=== PATIENT | male | born 1930 | race Caucasian/White ===

== ENCOUNTER 2016-12-25 12:04 | Inpatient (IN) | payer OTHER ==
[~2016-12-25] VITALS: Ht 180.3 cm; Wt 58.1 kg
[~2016-12-25 12:04] MED LIST: ALBUAER2 INH; ALTERIL PO; AMIO200T7 PO; ASCO10003 PO; ASPEC81 PO; CHOL1000 PO; FINA5TAB PO; FLM4 PO; GUAI1SOL5 PO; IPRASOL4 INH; MAGN65TA PO; METO25TA3 PO; MISCCAP80 PO; MONT1TAB3 PO; NTRGSL/4 UT; OXGN; PANT40TA PO; POLY335019 PO; SENN-91 PO; SIMV40TA2 PO; SYMIN160 INH; TRAZ50TA35 PO; ZNTT/150 PO
[2016-12-25] MEDS ORDERED: PRED-301 PO (12:30)
[2016-12-25] MEDS ORDERED: ASCO500T16 PO (12:30)
[2016-12-25] MEDS ORDERED: HYDR-5688 PO (12:30)
[2016-12-25] MEDS ORDERED: CEPH500C2 PO (12:30)
[2016-12-25] MEDS ORDERED: MULT-506 PO (12:30)
[2016-12-25] MEDS ORDERED: TRAZ50TA35 PO (12:30)
--- NOTE | 2016-12-25 13:45 | DIAGNOSTIC IMAGING REPORT ---
CHEST ONE VIEW PORTABLE CLINICAL HISTORY: Shortness of breath. Respiratory distress. COMPARISON STUDY: Chest radiograph January 19, 2016. FINDINGS: There are median sternotomy wires. Elevation of the left hemidiaphragm has slightly increased. A 5.1 x 3 cm right upper lobe mass has increased in size since exam of January 19, 2016. There has been interval development of left upper lobe airspace opacity. No pneumothorax or pleural effusion is present. There is no evidence for pulmonary edema. There may be mild left basilar opacity. IMPRESSION: 1. Interval development of left upper lobe airspace opacity. The appearance favors pneumonia. Radiographic follow up to ensure resolution is recommended. 2. Slight increase in size of the right upper lobe mass which is suspicious for neoplasm. Electronically signed by: William Israel M.D. 12/25/2016 1:43 PM Dictated Date/Time: 12/25/2016 1:36 PM
--- NOTE | 2016-12-25 13:55 | EMERGENCY ROOM VISIT NOTE ---
History Report prepared by Sascha: Abdirahman Long Under the Supervision of: Dr. Colin Moore D.O. First contact with patient: 13:41 Chief Complaint: RESPIRATORY DISTRESS Stated Complaint: RESP DISTRESS Nursing Triage Summary: Patient arrives via ALS from home with complaints of resp. distress. PT has a nodule in his right lung, and home health nurse listened to his lungs this morning and heard rhonchi in his left bases. Patient complaining of SOB, uses 3L home O2 at bedtime. Sats when ems arrived were 90-91% on room air. Swollen left arm started yesterday and bilateral feet swelling. History of Present Illness The patient is an 86 year old male who presents to the Emergency Room via ALS with complaints of worsening extremity swelling to his left arm and bilateral feet that started prior to arrival. Per the patient's family, the patient has been on antibiotics on and off for the past month due to fluid in his lungs. The patient started off coughing up blood, and was put on an antibiotic for that. The patient is also noted to have a nodule in his right lung, which doctors have decided to not treat the patient for yet. Recently, the patient has started to have swelling in his left arm, which has moved to the bilateral feet as well. The patient's home health nurse visited this morning, and was concerned for CHF, and the patient was then sent here for evaluation. Per the patient's family, the patient has also had worsening shortness of breath, as well as some chest pain. The patient has still been coughing up some blood. The patient most recently had a fall 4 days ago, and has some left shoulder pain. Prior to arrival, the patient had a blood pressure of 80/50, and his O2 saturation was in the 80s. The patient is on oxygen in the evenings and during the day as needed. Any fevers, nausea, or vomiting were denied on behalf of the patient. He is not noted to be on any blood thinners. Source of History: patient, family Onset: Prior to arrival Position: arm (left), foot (bilateral) Quality: other (swelling) Timing: worsening Associated Symptoms: + cough (up blood), + chest pain, + SOB, No fevers, No nausea, No vomiting Note: No other associated symptoms noted. Review of Systems See HPI for pertinent positives & negatives. A total of 10 systems reviewed and were otherwise negative. Past Medical & Surgical Medical Problems: (1) Anemia (2) BPH (benign prostatic hyperplasia) (3) CAD (coronary artery disease) (4) CHF (congestive heart failure) (5) Chronic obstructive pulmonary disease (6) Chronic respiratory failure with hypoxia (7) CKD (chronic kidney disease), stage III (8) DM type 2 (diabetes mellitus, type 2) (9) Hematuria (10) History of left heart catheterization (LHC) (11) HTN (hypertension) (12) Hyperlipidemia (13) Lung tumor (14) Myocardial infarction (15) PNA (pneumonia) Surgical Problems: (1) H/O carotid endarterectomy (2) H/O knee surgery (3) History of bowel resection (4) History of carpal tunnel surgery (5) History of heart artery stent (6) S/P CABG x 4 Family History Noncontributory due to advanced age Social History Smoking Status: Former Smoker Alcohol Use: none Drug Use: none Marital Status: Housing Status: lives with family Occupation Status: retired Current/Historical Medications Scheduled Amiodarone Hcl (Pacerone), 100 MG PO DAILY Ascorbic Acid (Ascorbic Acid), 500 MG PO DAILY Cephalexin Monohydrate (Keflex), 500 MG PO TID Cholecalciferol (Vitamin D3), 1,000 UNITS PO QAM Home O2 Therapy (Oxygen), 3.5 LITER NA HS Ipratropium-Albuterol (Duoneb), 1 TREATMENT INH QID Metoprolol Succ (Toprol Xl) (Toprol-Xl), 12.5 MG PO DAILYBL Multiple Vitamins W/ Iron (Daily Vitamin Formula+Ir), 1 TAB PO DAILY Nitroglycerin (Nitrostat), 0.4 MG UT PRN Pantoprazole (Protonix), 40 MG PO NOON Ranitidine (Zantac), 150 MG PO BID Trazodone Hcl (Trazodone), 50 MG PO HS Trazodone Hcl (Trazodone), 25 MG PO QDD [Alteril], 2 TABS PO HS Scheduled PRN Guaifenesin-Codeine (Codeine/Guaifenesin 100-10 mg/5Ml), 5-10 ML PO Q4 PRN for Cough Oxycodone/Acetaminophen 5MG/325MG (Percocet 5MG/325MG), 0.5 TABLET PO Q4H PRN for Pain Allergies Coded Allergies: Adhesives (Verified Allergy, Intermediate, RASH, 12/25/16) Physical Exam Vital Signs Date Time Temp Pulse Resp B/P (MAP) Pulse Ox O2 Delivery O2 Flow Rate FiO2 12/25/16 17:33 Nasal Cannula 3.0 12/25/16 17:06 73 20 138/74 100 Nasal Cannula 3.0 12/25/16 16:15 74 12/25/16 15:25 73 15 119/62 97 Nasal Cannula 3.0 12/25/16 14:07 76 21 104/58 100 Nasal Cannula 3.0 12/25/16 12:56 98 Nasal Cannula 3.0 12/25/16 12:56 98 Nasal Cannula 3.0 12/25/16 12:27 86 Room Air 12/25/16 12:27 Nasal Cannula 3.0 95 12/25/16 12:27 36.6 85 18 124/58 94 Nasal Cannula 3.0 12/25/16 12:18 82 Physical Exam GENERAL: Patient is awake, alert, and non anxious appearing. EYES: The conjunctivae are clear. The pupils are round and reactive. EARS, NOSE, MOUTH AND THROAT: The nose is without any evidence of any deformity. Mucous membranes are moist tongue is midline NECK: The neck is nontender and supple. RESPIRATORY: Lung sounds are diminished at both bases. Rales noted throughout. Mild tachypnea noted. CARDIOVASCULAR: Regular rate and rhythm noted there no murmurs rubs or gallops normal S1 normal S2 GASTROINTESTINAL: The abdomen is soft. Bowel sounds are present in all quadrants. Abdomen is nontender MUSCULOSKELETAL/EXTREMITIES: There is no evidence of gross deformity full range of motion is noted in the hips and shoulders SKIN: Edema to left forearm, no signs of cellulitis. Trace pedal edema to both legs. NEUROLOGIC: Patient is awake alert and oriented x3. Medical Decision & Procedures ER Provider Diagnostic Interpretation: Radiology results as stated below per my review and radiologist interpretation: CHEST ONE VIEW PORTABLE CLINICAL HISTORY: Shortness of breath. Respiratory distress. COMPARISON STUDY: Chest radiograph January 19, 2016. FINDINGS: There are median sternotomy wires. Elevation of the left hemidiaphragm has slightly increased. A 5.1 x 3 cm right upper lobe mass has increased in size since exam of January 19, 2016. There has been interval development of left upper lobe airspace opacity. No pneumothorax or pleural effusion is present. There is no evidence for pulmonary edema. There may be mild left basilar opacity. IMPRESSION: 1. Interval development of left upper lobe airspace opacity. The appearance favors pneumonia. Radiographic follow up to ensure resolution is recommended. 2. Slight increase in size of the right upper lobe mass which is suspicious for neoplasm. Electronically signed by: William Israel M.D. 12/25/2016 1:43 PM Dictated Date/Time: 12/25/2016 1:36 PM ULTRASOUND LEFT UPPER EXTREMITY VENOUS CLINICAL HISTORY: Left arm swelling. COMPARISON STUDY: No priors. TECHNIQUE: Real-time, grayscale, and color Doppler sonography of the deep veins of the left upper extremity is performed. Compression and augmentation were utilized. FINDINGS: There is no sonographic evidence of deep venous thrombosis identified in the left upper extremity. The left internal jugular, axillary, and brachial veins are patent and normally compressible. Normal venous waveforms and augmentation are seen within the left subclavian vein. The cephalic and basilic veins are clear. The visualized radial and ulnar veins are patent. Subcutaneous soft tissue edema is noted in the left arm. There is a pocket of subcutaneous fluid seen posterior to the elbow which measures up to 3.2 cm. IMPRESSION: 1. There is no sonographic evidence of deep venous thrombosis identified in the left upper extremity. 2. Soft tissue swelling is noted in the left arm and there is a pocket of simultaneous fluid posterior to the elbow, possibly representing bursitis. Clinical correlation will be required. Electronically signed by: Kerwin Rivera M.D. 12/25/2016 3:11 PM Dictated Date/Time: 12/25/2016 3:09 PM LEFT SHOULDER MIN 2 VIEWS ROUTINE CLINICAL HISTORY: 86 years-old Male presenting with swelling and respiratory distress. TECHNIQUE: Internal rotation and transscapular Y views of the left shoulder were obtained. A frontal radiograph of the left forearm was included erroneously in the compilation. COMPARISON: Chest x-ray from 12/25/2016. FINDINGS: The humeral head articulates normally with the glenoid. No acute fracture or subluxation. Acromioclavicular joint is intact. Regional soft tissues grossly normal. Median sternotomy wires and mediastinal surgical clips noted in addition to aortic atherosclerosis. Less pronounced left upper lobe opacity likely due to technique. IMPRESSION: No acute fracture or subluxation of the left shoulder. Electronically signed by: Chidi Moreland M.D. 12/25/2016 2:31 PM Dictated Date/Time: 12/25/2016 2:29 PM LEFT FOREARM 2 VIEWS ROUTINE HISTORY: 86 years-old Male acute left arm swelling with respiratory distress. COMPARISON: Left shoulder radiographs of same day TECHNIQUE: Single lateral view of the left forearm FINDINGS: There is moderate soft tissue swelling of the forearm and distal left upper arm. Negative for radiopaque foreign body. Radiocarpal, triscaphe and first carpometacarpal joint changes are noted. There is marginal spurring of the radial head. There is no acute fracture or dislocation identified. IMPRESSION: Moderate soft tissue swelling of the left forearm without acute bony normality identified. The above report was generated using voice recognition software. It may contain grammatical, syntax or spelling errors. Electronically signed by: Luther Sanots M.D. 12/25/2016 2:39 PM Dictated Date/Time: 12/25/2016 2:38 PM Laboratory Results 12/25/16 13:41 Red Blood Count 3.04, Mean Corpuscular Volume 94.4, Mean Corpuscular Hemoglobin 30.3, Mean Corpuscular Hemoglobin Concent 32.1, Mean Platelet Volume 8.7, Neutrophils (%) (Auto) 84.7, Lymphocytes (%) (Auto) 6.8, Monocytes (%) (Auto) 7.7, Eosinophils (%) (Auto) 0.4, Basophils (%) (Auto) 0.1, Neutrophils # (Auto) 10.74, Lymphocytes # (Auto) 0.86, Monocytes # (Auto) 0.97, Eosinophils # (Auto) 0.05, Basophils # (Auto) 0.01 12/25/16 13:41 Test 12/25/16 13:41 12/25/16 14:16 12/25/16 16:05 White Blood Count 12.67 K/uL (4.8-10.8) Red Blood Count 3.04 M/uL (4.7-6.1) Hemoglobin 9.2 g/dL (14.0-18.0) Hematocrit 28.7 % (42-52) Mean Corpuscular Volume 94.4 fL (80-100) Mean Corpuscular Hemoglobin 30.3 pg (25-34) Mean Corpuscular Hemoglobin Concent 32.1 g/dl (32-36) Platelet Count 205 K/uL (130-400) Mean Platelet Volume 8.7 fL (7.4-10.4) Neutrophils (%) (Auto) 84.7 % Lymphocytes (%) (Auto) 6.8 % Monocytes (%) (Auto) 7.7 % Eosinophils (%) (Auto) 0.4 % Basophils (%) (Auto) 0.1 % Neutrophils # (Auto) 10.74 K/uL (1.4-6.5) Lymphocytes # (Auto) 0.86 K/uL (1.2-3.4) Monocytes # (Auto) 0.97 K/uL (0.11-0.59) Eosinophils # (Auto) 0.05 K/uL (0-0.5) Basophils # (Auto) 0.01 K/uL (0-0.2) RDW Standard Deviation 50.2 fL (36.4-46.3) RDW Coefficient of Variation 14.5 % (11.5-14.5) Immature Granulocyte % (Auto) 0.3 % Immature Granulocyte # (Auto) 0.04 K/uL (0.00-0.02) Prothrombin Time 10.4 SECONDS (9.0-12.0) Prothromb Time International Ratio 1.0 (0.9-1.1) Activated Partial Thromboplast Time 26.7 SECONDS (21.0-31.0) Partial Thromboplastin Ratio 1.0 Anion Gap 7.0 mmol/L (3-11) Est Creatinine Clear Calc Drug Dose 25.5 ml/min Estimated GFR () 43.9 Estimated GFR (Non- 37.9 BUN/Creatinine Ratio 23.9 (10-20) Calcium Level 8.8 mg/dl (8.5-10.1) Total Bilirubin 0.2 mg/dl (0.2-1) Aspartate Amino Transf (AST/SGOT) 17 U/L (15-37) Alanine Aminotransferase (ALT/SGPT) 15 U/L (12-78) Alkaline Phosphatase 79 U/L (45-117) Pro-B-Type Natriuretic Peptide 92471 pg/ml (0-1800) Total Protein 6.2 gm/dl (6.4-8.2) Albumin 2.1 gm/dl (3.4-5.0) Globulin 4.1 gm/dl (2.5-4.0) Albumin/Globulin Ratio 0.5 (0.9-2) Bedside Troponin I 0.100 ng/ml (0-0.045) Urine Color DK YELLOW Urine Appearance CLEAR (CLEAR) Urine pH 5.0 (4.5-7.5) Urine Specific [place] 1.021 (1.000-1.030) Urine Protein 1+ (NEG) Urine Glucose (UA) NEG (NEG) Urine Ketones NEG (NEG) Urine Occult Blood 2+ (NEG) Urine Nitrite NEG (NEG) Urine Bilirubin NEG (NEG) Urine Urobilinogen NEG (NEG) Urine Leukocyte Esterase NEG (NEG) Urine WBC (Auto) 5-10 /hpf (0-5) Urine RBC (Auto) 10-30 /hpf (0-4) Urine Hyaline Casts (Auto) 1-5 /lpf (0-5) Urine Epithelial Cells (Auto) >30 /lpf (0-5) Urine Bacteria (Auto) NEG (NEG) Urine Renal Epithelial Cells 5-10 /lpf (0-5) Urine Crystals CALCIUM OXALATE (NONE Laboratory results per my review. Medications Administered Medications (Trade) Dose Ordered Sig/Bruon Route Start Time Stop Time Status Last Admin Dose Admin Levofloxacin (Levaquin / D5W) 750 mg NOW STAT IV 12/25/16 14:54 12/25/16 14:55 DC 12/25/16 15:25 750 MG Sodium Chloride 500 ml @ 999 mls/hr Q31M STAT IV 12/25/16 15:49 12/25/16 16:19 DC 12/25/16 16:30 999 MLS/HR ECG Indication: SOB/dyspnea Rate (beats per minute): 79 Rhythm: normal sinus Findings: PVC, other (no acute ST segment abnormalities) Change: no significant change (from January 17 of last year) ED Course 1342: The patient was evaluated in room B7. A complete history and physical examination were performed. 1454: Ordered Levaquin / D5W 750 mg IV. 1548: I reevaluated the patient and he is resting. The patient and family verbally expressed understanding and agreement with the treatment plan. The patient will be evaluated for further treatment. 1549: Ordered NSS 500 ml @ 999 mls/hr IV. 1554: I discussed the patient with Anjelica Mijares. She will evaluate the patient for further treatment. Medical Decision Differential diagnosis: Etiologies such as infections, reactive airway disease, pneumonia, pneumothorax , COPD, CHF, cardiac ischemia, pulmonary embolism, musculoskeletal, gastrointestinal, as well as others were entertained. Nursing notes reviewed. Additional history was obtained from the patient's family members. The patient is an 86-year-old male who presented to the emergency apartment for an evaluation of shortness of breath. The patient is a recently diagnosed lung tumor that he is choosing not to treat. The patient was also found have signs of pneumonia on chest x-ray which is new. He has had hemoptysis. I discussed the patient's laboratory and radiographic studies with him and his family hours. He was treated with IV antibiotics and a small IV fluid bolus. I discussed his case with the on-call [facility] hospitalist group. They have agreed to evaluate the patient in emergency apartment for further management and disposition. I discussed the patient's laboratory and radiographic studies with his family. Head Trauma GCS Score: 15 Medication Reconcilliation Current Medication List: was personally reviewed by me Blood Pressure Screening Patient's blood pressure: Normal blood pressure Consults Time Called: 1550 Consulting Physician: Anjelica Mijares Returned Call: 1554 I discussed the patient with Anjelica Mijares. She will evaluate the patient for further treatment. Impression Primary Impression: PNA (pneumonia) Additional Impressions: CHF (congestive heart failure) Hemoptysis Scribe Attestation The scribe's documentation has been prepared under my direction and personally reviewed by me in its entirety. I confirm that the note above accurately reflects all work, treatment, procedures, and medical decision making performed by me. Departure Information Dispostion Being Evaluated By Hospitalist Referrals Ling Tyler M.D. (PCP) Patient Instructions Asthma - [facility], COPD - [facility], Croup - [facility], My [facility] Problem Qualifiers Primary Impression: PNA (pneumonia) Pneumonia type: due to unspecified organism Laterality: unspecified laterality Lung location: unspecified part of lung Qualified Codes: J18.9 - Pneumonia, unspecified organism Additional Impressions: CHF (congestive heart failure) Congestive heart failure type: unspecified congestive heart failure type Congestive heart failure chronicity: unspecified congestive heart failure chronicity Qualified Codes: I50.9 - Heart failure, unspecified
[2016-12-25 14:24] LABS: BASO % 0.1 %; BASO ABS # 0.01 K/uL (0-0.2); COMPLETE YES; EOS % 0.4 %; HEMATOCRIT 28.7 % (42-52); IG% 0.3 %; LYMPH % 6.8 %; LYMPH ABS # 0.86 K/uL (1.2-3.4); MEAN CELL VOLUME 94.4 fL (80-100); MEAN CORPUSCULAR HEMOGLOBIN 30.3 pg (25-34); MEAN CORPUSCULAR HGB CONC 32.1 g/dl (32-36); MEAN PLATELET VOLUME 8.7 fL (7.4-10.4); MONO % 7.7 %; NEUT % 84.7 %; PLATELET COUNT 205 K/uL (130-400); PROTHROMBIN TIME (PATIENT) 10.4 SECONDS (9.0-12.0); RED BLOOD COUNT 3.04 M/uL (4.7-6.1); WHITE BLOOD COUNT 12.67 K/uL (4.8-10.8)
--- NOTE | 2016-12-25 14:33 | DIAGNOSTIC IMAGING REPORT ---
LEFT SHOULDER MIN 2 VIEWS ROUTINE CLINICAL HISTORY: 86 years-old Male presenting with swelling and respiratory distress. TECHNIQUE: Internal rotation and transscapular Y views of the left shoulder were obtained. A frontal radiograph of the left forearm was included erroneously in the compilation. COMPARISON: Chest x-ray from 12/25/2016. FINDINGS: The humeral head articulates normally with the glenoid. No acute fracture or subluxation. Acromioclavicular joint is intact. Regional soft tissues grossly normal. Median sternotomy wires and mediastinal surgical clips noted in addition to aortic atherosclerosis. Less pronounced left upper lobe opacity likely due to technique. IMPRESSION: No acute fracture or subluxation of the left shoulder. Electronically signed by: Chidi Moreland M.D. 12/25/2016 2:31 PM Dictated Date/Time: 12/25/2016 2:29 PM
[2016-12-25 14:37] LABS: BUN/CREATININE RATIO 23.9 (10-20); CALCIUM 8.8 mg/dl (8.5-10.1); CREATININE 1.6 mg/dl (0.60-1.40); POTASSIUM 4.5 mmol/L (3.5-5.1)
[2016-12-25 14:41] LABS: ALB/GLOB RATIO 0.5 (0.9-2)
--- NOTE | 2016-12-25 14:41 | DIAGNOSTIC IMAGING REPORT ---
LEFT FOREARM 2 VIEWS ROUTINE HISTORY: 86 years-old Male acute left arm swelling with respiratory distress. COMPARISON: Left shoulder radiographs of same day TECHNIQUE: Single lateral view of the left forearm FINDINGS: There is moderate soft tissue swelling of the forearm and distal left upper arm. Negative for radiopaque foreign body. Radiocarpal, triscaphe and first carpometacarpal joint changes are noted. There is marginal spurring of the radial head. There is no acute fracture or dislocation identified. IMPRESSION: Moderate soft tissue swelling of the left forearm without acute bony normality identified. The above report was generated using voice recognition software. It may contain grammatical, syntax or spelling errors. Electronically signed by: Luther Santos M.D. 12/25/2016 2:39 PM Dictated Date/Time: 12/25/2016 2:38 PM
[2016-12-25] MEDS ORDERED: LEVAQUIN 750MG / 150ML D5W IV STA (14:54)
--- NOTE | 2016-12-25 15:12 | DIAGNOSTIC IMAGING REPORT ---
ULTRASOUND LEFT UPPER EXTREMITY VENOUS CLINICAL HISTORY: Left arm swelling. COMPARISON STUDY: No priors. TECHNIQUE: Real-time, grayscale, and color Doppler sonography of the deep veins of the left upper extremity is performed. Compression and augmentation were utilized. FINDINGS: There is no sonographic evidence of deep venous thrombosis identified in the left upper extremity. The left internal jugular, axillary, and brachial veins are patent and normally compressible. Normal venous waveforms and augmentation are seen within the left subclavian vein. The cephalic and basilic veins are clear. The visualized radial and ulnar veins are patent. Subcutaneous soft tissue edema is noted in the left arm. There is a pocket of subcutaneous fluid seen posterior to the elbow which measures up to 3.2 cm. IMPRESSION: 1. There is no sonographic evidence of deep venous thrombosis identified in the left upper extremity. 2. Soft tissue swelling is noted in the left arm and there is a pocket of simultaneous fluid posterior to the elbow, possibly representing bursitis. Clinical correlation will be required. Electronically signed by: Kerwin Rivera M.D. 12/25/2016 3:11 PM Dictated Date/Time: 12/25/2016 3:09 PM
[2016-12-25] MEDS ORDERED: SODIUM CHLORIDE 0.9% 500ML 500 ML IV STA (15:49)
[2016-12-25 16:25] LABS: URINE APPEARANCE CLEAR (CLEAR); URINE BILIRUBIN NEG (NEG); URINE COLOR DK YELLOW; URINE EPITHELIAL CELL AUTO >30 /lpf (0-5); URINE NITRITE NEG (NEG); URINE SPECIFIC GRAVITY 1.021 (1.000-1.030); UROBILINOGEN NEG (NEG); ZZUR CULT IF INDIC CLEAN CATCH NO
[2016-12-25 16:26] LABS: MANUAL MICROSCOPIC REQUIRED? NO; REVIEW REQ? YES
[2016-12-25] MEDS ORDERED: ONDANSETRON INJ 2 MG/ML 2 ML VIAL IV PRN (17:00)
[2016-12-25] MEDS ORDERED: NITROGLYCERIN 0.4 MG SL PER TAB CHARGE SL PRN (17:00)
[2016-12-25] MEDS ORDERED: GLUCOSE 40% GEL 15 GM TUBE PO PRN (17:15)
[2016-12-25] MEDS ORDERED: GLUCOSE 10 TABS/TUBE PO PRN (17:15)
[2016-12-25] MEDS ORDERED: GLUCAGON FOR INJ 1 MG VIAL SQ PRN (17:15)
[2016-12-25] MEDS ORDERED: PIPERACILL/TAZOBAC CONSULT ACTIVE PRN (17:30)
[2016-12-25] MEDS ORDERED: VANCOMYCIN CONSULT ACTIVE PRN (17:30)
[2016-12-25 17:33] VITALS: BMI 17.4
[2016-12-25] MEDS ORDERED: NITROGLYCERIN 0.4 MG SL PER TAB CHARGE UT SCH (17:45)
[2016-12-25] MEDS ORDERED: VANCOMYCIN INJ 1,500 MG in SODIUM CHLORIDE 0.9% 500ML 500 ML IV ONE (17:45)
[2016-12-25] MEDS ORDERED: GUAIFENESIN/CODEINE 200MG/20MG 10ML UDC PO PRN (17:45)
[2016-12-25] MEDS ORDERED: PIPERACILL/TAZOBAC IV 3.375 GM in DEXTROSE 5% 100ML IV ONE (17:45)
[2016-12-25] MEDS ORDERED: CHOL1000 PO (17:47)
[2016-12-25] MEDS ORDERED: MULT-910 PO (17:47)
[2016-12-25] MEDS ORDERED: GUAI1SOL3 PO (17:47)
[2016-12-25] MEDS ORDERED: OXYC-57 PO (17:47)
[2016-12-25] MEDS: TRAZODONE HCL 50 MG TAB PO SCH ×2 (18:00→22:09)
[2016-12-25] MEDS ORDERED: ALBUT/IPRATROP 3MG/0.5MG NEB 3 ML VIAL INH PRN (18:30)
--- NOTE | 2016-12-25 18:43 | DIAGNOSTIC IMAGING REPORT ---
LEFT-SIDED RIB SERIES CLINICAL HISTORY: Left-sided chest pain. FINDINGS: 4 views from a left-sided rib series are correlated with chest x-ray performed the same day 12/25/[address] dated 04/07/2014. The skeletal structures are osteopenic. There is no radiographic evidence of acute/distracted left-sided rib fracture on the rib series as clinically queried. Midline sternotomy wires are noted. The heart is enlarged and there is atherosclerotic calcification of the thoracic and. Advanced emphysema is noted. There is volume loss in the left lung and elevation of left hemidiaphragm. A mass lesion the right upper lobe is similar to previous. Patchy airspace consolidation is seen in the left upper lobe. Surgical clips project over the left neck. IMPRESSION: 1. There is no radiographic evidence of acute/distracted left-sided rib fracture as clinically queried. 2. Advanced emphysema, a right upper lobe mass, and left upper lobe patchy airspace consolidation suggesting pneumonia are unchanged from today's chest x-ray. 3. Additional findings as above. Electronically signed by: Kerwin Rivera M.D. 12/25/2016 6:42 PM Dictated Date/Time: 12/25/2016 6:36 PM
[2016-12-25 19:15] VITALS: BP 134/82; PULSE 82; TEMP 36.9; O2SAT 97
--- NOTE | 2016-12-25 19:49 | Pharmacy Progress Note ---
Pharmacy Antibiotic Consult Date of Service: Dec 25, 2016. Pharmacy Dosing Scope Pharmacy is consulted to initiate vancomycin and zosyn IV dosing therapy, order appropriate labs and adjust drug dose/frequency. Subjective The patient is a 86 year old male admitted on Dec 25, 2016 at 17:38. Objective Height (Feet): 5 Height (Inches): 11.00 Weight (Kilograms): 56.500 Lab Results (24hrs): Test 12/25/16 13:41 12/25/16 14:16 12/25/16 16:05 White Blood Count 12.67 K/uL (4.8-10.8) Red Blood Count 3.04 M/uL (4.7-6.1) Hemoglobin 9.2 g/dL (14.0-18.0) Hematocrit 28.7 % (42-52) Mean Corpuscular Volume 94.4 fL (80-100) Mean Corpuscular Hemoglobin 30.3 pg (25-34) Mean Corpuscular Hemoglobin Concent 32.1 g/dl (32-36) Platelet Count 205 K/uL (130-400) Mean Platelet Volume 8.7 fL (7.4-10.4) Neutrophils (%) (Auto) 84.7 % Lymphocytes (%) (Auto) 6.8 % Monocytes (%) (Auto) 7.7 % Eosinophils (%) (Auto) 0.4 % Basophils (%) (Auto) 0.1 % Neutrophils # (Auto) 10.74 K/uL (1.4-6.5) Lymphocytes # (Auto) 0.86 K/uL (1.2-3.4) Monocytes # (Auto) 0.97 K/uL (0.11-0.59) Eosinophils # (Auto) 0.05 K/uL (0-0.5) Basophils # (Auto) 0.01 K/uL (0-0.2) RDW Standard Deviation 50.2 fL (36.4-46.3) RDW Coefficient of Variation 14.5 % (11.5-14.5) Immature Granulocyte % (Auto) 0.3 % Immature Granulocyte # (Auto) 0.04 K/uL (0.00-0.02) Prothrombin Time 10.4 SECONDS (9.0-12.0) Prothromb Time International Ratio 1.0 (0.9-1.1) Activated Partial Thromboplast Time 26.7 SECONDS (21.0-31.0) Partial Thromboplastin Ratio 1.0 Sodium Level 137 mmol/L (136-145) Potassium Level 4.5 mmol/L (3.5-5.1) Chloride Level 100 mmol/L (98-107) Carbon Dioxide Level 30 mmol/L (21-32) Anion Gap 7.0 mmol/L (3-11) Blood Urea Nitrogen 38 mg/dl (7-18) Creatinine 1.60 mg/dl (0.60-1.40) Est Creatinine Clear Calc Drug Dose 25.5 ml/min Estimated GFR () 43.9 Estimated GFR (Non- 37.9 BUN/Creatinine Ratio 23.9 (10-20) Random Glucose 213 mg/dl (70-99) Calcium Level 8.8 mg/dl (8.5-10.1) Total Bilirubin 0.2 mg/dl (0.2-1) Aspartate Amino Transf (AST/SGOT) 17 U/L (15-37) Alanine Aminotransferase (ALT/SGPT) 15 U/L (12-78) Alkaline Phosphatase 79 U/L (45-117) Pro-B-Type Natriuretic Peptide 95967 pg/ml (0-1800) Total Protein 6.2 gm/dl (6.4-8.2) Albumin 2.1 gm/dl (3.4-5.0) Globulin 4.1 gm/dl (2.5-4.0) Albumin/Globulin Ratio 0.5 (0.9-2) Bedside Troponin I 0.100 ng/ml (0-0.045) Urine Color DK YELLOW Urine Appearance CLEAR (CLEAR) Urine pH 5.0 (4.5-7.5) Urine Specific [place] 1.021 (1.000-1.030) Urine Protein 1+ (NEG) Urine Glucose (UA) NEG (NEG) Urine Ketones NEG (NEG) Urine Occult Blood 2+ (NEG) Urine Nitrite NEG (NEG) Urine Bilirubin NEG (NEG) Urine Urobilinogen NEG (NEG) Urine Leukocyte Esterase NEG (NEG) Urine WBC (Auto) 5-10 /hpf (0-5) Urine RBC (Auto) 10-30 /hpf (0-4) Urine Hyaline Casts (Auto) 1-5 /lpf (0-5) Urine Epithelial Cells (Auto) >30 /lpf (0-5) Urine Bacteria (Auto) NEG (NEG) Urine Renal Epithelial Cells 5-10 /lpf (0-5) Urine Crystals CALCIUM OXALATE (NONE Assessment & Plan Patient started on vancomycin and zosyn for possible pneumonia. Of note, had been on antibiotics prior to hospital admission (Keflex). Blood cultures x 2 are ordered. Vancomycin: * LD of vancomycin 1500 mg (~26 mg/kg) iv x 1 * Will start MD of vancomycin 750 mg (~13 mg/kg) iv q 24 hrs to achieve an estimated trough ~19 mcg/ml (goal 15-20 mcg/ml) * Estimated kinetics: t 1/2~26 hrs, ke~0.026 hr-1, CrCl ~26 ml/min * Based upon previous admissions, Scr ranges from 1.6-2.0 mg/dL * Will wait to order trough to ensure renal function remains stable, may need to adjust interval if renal function worsens Zosyn: * 3.375 gm x 1 given in the ED, then [id number] 3.375 gm iv q 8 hrs (appropriate for CrCl >20 ml/min) Pharmacy will continue to follow and will adjust dose/frequency as necessary. Thank you
[2016-12-25] MEDS: ALBUT/IPRATROP 3MG/0.5MG NEB 3 ML VIAL INH SCH (19:51)
[2016-12-25 19:54] VITALS: PULSE 86; O2SAT 94
[2016-12-25] MEDS ORDERED: PNEUMOCOCCAL POLYSACCHARIDES 25 MCG/0.5 ML VIAL/SYR IM. ONE (20:30)
[2016-12-25] MEDS ORDERED: PNEUMOCOCCAL ADMINISTRATION CHARGE ONE (20:30)
--- NOTE | 2016-12-25 20:32 | History and Physical ---
History & Physical Date & Time of Service: Dec 25, 2016 at 17:51 Chief Complaint: Resp Distress Primary Care Physician: Ling Tyler M.D. History of Present Illness Source: patient, family, hospital records This is an 86 y/o male with COPD requiring home O2, lung mass- declined workup in past, CAD s/p CABG x 4, CHF with mild systolic dysfunction (EF 45% on echo ), hx atrial fibrillation, HTN, DM type 2, CKD III, and other problems listed below who presents to the ED for worsening SOB and left arm swelling. Per family, prior to arrival home health nurse noted patient was hypotensive to 80s/50s, hypoxic, and had rales on auscultation. Pt reports cough productive of yellow sputum with intermittent hemoptysis- last episode yesterday. Has associated rhinorrhea. Recently took multiple courses of antibiotics prescribed by PCP Dr. Tyler (appears 10 day course of Septra was prescribed 11/13/16 after sputum culture from 11/09/16 grew MRSA, then took course of Levaquin, now on Keflex for past 6 days) and 10 day course of prednisone (finished 3 days ago) without improvement. Now has worsening of chronic MCKINNEY over past few days. Sleeps at 45 degree angle chronically due to orthopnea. Home O2 is usually 3.5 liters HS and 4 liters PRN. Has required 4 liters for past 4 days. Feels fatigued and generally weak. Fell 2 days ago due to loss of balance. No head trauma or LOC. Usually uses cane or walker but was in the bathroom without assistive device. Has left shoulder pain and LUE edema since that time. Per family, Hg was in 7's approx 2 weeks ago and pt was started on iron-containing vitamins. Has black stool since starting iron. Has chronic dysuria and intermittent hematuria. Has hx bladder CA s/p transurethral resection. Weight is stable recently but lost 10 lb in past 1 year. Not a good eater at baseline. No choking episodes. Denies fever, chills, dizziness, chest pain, N/V/D. Past Medical/Surgical History Medical Problems: (1) Anemia Status: Chronic (2) BPH (benign prostatic hyperplasia) Status: Chronic (3) CAD (coronary artery disease) Status: Chronic (4) CHF (congestive heart failure) Status: Chronic (5) Chronic obstructive pulmonary disease Status: Chronic (6) Chronic respiratory failure with hypoxia Status: Chronic (7) CKD (chronic kidney disease), stage III Status: Chronic (8) DM type 2 (diabetes mellitus, type 2) Status: Chronic (9) Hematuria Status: Chronic (10) History of left heart catheterization (LHC) Status: Chronic (11) HTN (hypertension) Status: Chronic (12) Hyperlipidemia Status: Chronic (13) Lung tumor Status: Chronic (14) Myocardial infarction Status: Chronic Surgical Problems: (1) H/O carotid endarterectomy Status: Chronic (2) H/O knee surgery Status: Chronic (3) History of bowel resection Status: Chronic (4) History of carpal tunnel surgery Status: Chronic (5) History of heart artery stent Status: Chronic (6) S/P CABG x 4 Permanent Comment: Status: Chronic Family History Noncontributory due to advanced age Social History Smoking Status: Former Smoker (quit 3 years ago, prior 1 ppd x 75 years) Alcohol Use: none Marital Status: Occupational Status: retired Immunizations History of Influenza Vaccine: Unknown History of Tetanus Vaccine?: Unknown History of Pneumococcal: Unknown History of Hepatitis B Vaccine: Unknown Multi-Drug Resistant Organisms History of MDRO: Yes Type of MDRO: MRSA Allergies Coded Allergies: Adhesives (Verified Allergy, Intermediate, RASH, 12/25/16) Home Medications Scheduled Amiodarone Hcl (Pacerone), 100 MG PO DAILY Ascorbic Acid (Ascorbic Acid), 500 MG PO DAILY Cephalexin Monohydrate (Keflex), 500 MG PO TID Cholecalciferol (Vitamin D3), 1,000 UNITS PO QAM Home O2 Therapy (Oxygen), 3.5 LITER NA HS Ipratropium-Albuterol (Duoneb), 1 TREATMENT INH QID Metoprolol Succ (Toprol Xl) (Toprol-Xl), 12.5 MG PO DAILYBL Multiple Vitamins W/ Iron (Daily Vitamin Formula+Ir), 1 TAB PO DAILY Nitroglycerin (Nitrostat), 0.4 MG UT PRN Pantoprazole (Protonix), 40 MG PO NOON Ranitidine (Zantac), 150 MG PO BID Trazodone Hcl (Trazodone), 50 MG PO HS Trazodone Hcl (Trazodone), 25 MG PO QDD [Alteril], 2 TABS PO HS Scheduled PRN Guaifenesin-Codeine (Codeine/Guaifenesin 100-10 mg/5Ml), 5-10 ML PO Q4 PRN for Cough Oxycodone/Acetaminophen 5MG/325MG (Percocet 5MG/325MG), 0.5 TABLET PO Q4H PRN for Pain Review of Systems Ten systems reviewed and negative except as noted in HPI. Physical Exam Vital Signs Date Time Temp Pulse Resp B/P (MAP) Pulse Ox O2 Delivery O2 Flow Rate FiO2 12/25/16 16:15 74 12/25/16 15:25 73 15 119/62 97 Nasal Cannula 3.0 12/25/16 14:07 76 21 104/58 100 Nasal Cannula 3.0 12/25/16 12:56 98 Nasal Cannula 3.0 12/25/16 12:56 98 Nasal Cannula 3.0 12/25/16 12:27 86 Room Air 12/25/16 12:27 Nasal Cannula 3.0 95 12/25/16 12:27 36.6 85 18 124/58 94 Nasal Cannula 3.0 12/25/16 12:18 82 General Appearance: no apparent distress, + thin, + pertinent finding ( pleasant alert frail elderly male. family at bedside. ) Head: normocephalic, atraumatic Eyes: normal inspection, PERRL, EOMI, sclerae normal ENT: pharynx normal, + pertinent finding (hard of hearing) Neck: supple, trachea midline Respiratory/Chest: no respiratory distress, no accessory muscle use, + decreased breath sounds, + rales (bilateral bases), + pertinent finding ( saturating well on 3 liters nasal cannula. left lower ribs tender to palpation. ) Cardiovascular: regular rate, rhythm, no murmur Abdomen/GI: normal bowel sounds, non tender, soft Extremities/Musculoskelatal: no calf tenderness, + pedal edema (trace edema bilateral ankles), + pertinent finding (1+ edema left forearm. left shoulder tender anterior and lateral aspects, abducts up to 90 degrees. left elbow and left wrist nontender, ROM WNL. ) Neurologic/Psych: alert, normal mood/affect, oriented x 3, + pertinent finding (no focal deficit on gross examination) Skin: normal color, warm/dry Diagnostics Laboratory Results Results Past 24 Hours Test 12/25/16 13:41 12/25/16 14:16 12/25/16 16:05 Range/Units White Blood Count 12.67 4.8-10.8 K/uL Red Blood Count 3.04 4.7-6.1 M/uL Hemoglobin 9.2 14.0-18.0 g/dL Hematocrit 28.7 42-52 % Mean Corpuscular Volume 94.4 80-100 fL Mean Corpuscular Hemoglobin 30.3 25-34 pg Mean Corpuscular Hemoglobin Concent 32.1 32-36 g/dl Platelet Count 205 130-400 K/uL Mean Platelet Volume 8.7 7.4-10.4 fL Neutrophils (%) (Auto) 84.7 % Lymphocytes (%) (Auto) 6.8 % Monocytes (%) (Auto) 7.7 % Eosinophils (%) (Auto) 0.4 % Basophils (%) (Auto) 0.1 % Neutrophils # (Auto) 10.74 1.4-6.5 K/uL Lymphocytes # (Auto) 0.86 1.2-3.4 K/uL Monocytes # (Auto) 0.97 0.11-0.59 K/uL Eosinophils # (Auto) 0.05 0-0.5 K/uL Basophils # (Auto) 0.01 0-0.2 K/uL RDW Standard Deviation 50.2 36.4-46.3 fL RDW Coefficient of Variation 14.5 11.5-14.5 % Immature Granulocyte % (Auto) 0.3 % Immature Granulocyte # (Auto) 0.04 0.00-0.02 K/uL Prothrombin Time 10.4 9.0-12.0 SECONDS Prothromb Time International Ratio 1.0 0.9-1.1 Activated Partial Thromboplast Time 26.7 21.0-31.0 SECONDS Partial Thromboplastin Ratio 1.0 Sodium Level 137 136-145 mmol/L Potassium Level 4.5 3.5-5.1 mmol/L Chloride Level 100 98-107 mmol/L Carbon Dioxide Level 30 21-32 mmol/L Anion Gap 7.0 3-11 mmol/L Blood Urea Nitrogen 38 7-18 mg/dl Creatinine 1.60 0.60-1.40 mg/dl Est Creatinine Clear Calc Drug Dose 25.5 ml/min Estimated GFR () 43.9 Estimated GFR (Non- 37.9 BUN/Creatinine Ratio 23.9 10-20 Random Glucose 213 70-99 mg/dl Calcium Level 8.8 8.5-10.1 mg/dl Total Bilirubin 0.2 0.2-1 mg/dl Aspartate Amino Transf (AST/SGOT) 17 15-37 U/L Alanine Aminotransferase (ALT/SGPT) 15 12-78 U/L Alkaline Phosphatase 79 45-117 U/L Pro-B-Type Natriuretic Peptide 75458 0-1800 pg/ml Total Protein 6.2 6.4-8.2 gm/dl Albumin 2.1 3.4-5.0 gm/dl Globulin 4.1 2.5-4.0 gm/dl Albumin/Globulin Ratio 0.5 0.9-2 Bedside Troponin I 0.100 0-0.045 ng/ml Urine Color DK YELLOW Urine Appearance CLEAR CLEAR Urine pH 5.0 4.5-7.5 Urine Specific [place] 1.021 1.000-1.030 Urine Protein 1+ NEG Urine Glucose (UA) NEG NEG Urine Ketones NEG NEG Urine Occult Blood 2+ NEG Urine Nitrite NEG NEG Urine Bilirubin NEG NEG Urine Urobilinogen NEG NEG Urine Leukocyte Esterase NEG NEG Urine WBC (Auto) 5-10 0-5 /hpf Urine RBC (Auto) 10-30 0-4 /hpf Urine Hyaline Casts (Auto) 1-5 0-5 /lpf Urine Epithelial Cells (Auto) >30 0-5 /lpf Urine Bacteria (Auto) NEG NEG Urine Renal Epithelial Cells 5-10 0-5 /lpf Urine Crystals CALCIUM OXALATE NONE PRSENT Microbiology Results 12/25/16 Blood Culture, Received Pending 12/25/16 Blood Culture, Received Pending Diagnostic Radiology CHEST ONE VIEW PORTABLE IMPRESSION: 1. Interval development of left upper lobe airspace opacity. The appearance favors pneumonia. Radiographic follow up to ensure resolution is recommended. 2. Slight increase in size of the right upper lobe mass which is suspicious for neoplasm. ULTRASOUND LEFT UPPER EXTREMITY VENOUS IMPRESSION: 1. There is no sonographic evidence of deep venous thrombosis identified in the left upper extremity. 2. Soft tissue swelling is noted in the left arm and there is a pocket of simultaneous fluid posterior to the elbow, possibly representing bursitis. Clinical correlation will be required. LEFT SHOULDER MIN 2 VIEWS ROUTINE IMPRESSION: No acute fracture or subluxation of the left shoulder. LEFT FOREARM 2 VIEWS ROUTINE IMPRESSION: Moderate soft tissue swelling of the left forearm without acute bony normality identified. LEFT RIBS XRAY IMPRESSION: 1. There is no radiographic evidence of acute/distracted left-sided rib fracture as clinically queried. 2. Advanced emphysema, a right upper lobe mass, and left upper lobe patchy airspace consolidation suggesting pneumonia are unchanged from today's chest x-ray. 3. Additional findings as above. EKG Sinus rhythm with occasional Premature ventricular complexes, Left axis deviation, Left anterior fascicular block, Inferior infarct, age undetermined, U -waves present; r/o electrolyte imbalance, Nonspecific ST and T wave abnormality , Abnormal ECG, When compared with ECG of 18-JAN-2016 14:26, Premature ventricular complexes are now Present, Premature supraventricular complexes are no longer Present, as per cardiology read Impression Assessment and Plan COMMUNITY ACQUIRED PNEUMONIA In setting of chronic hypoxic respiratory failure due to COPD, lung mass- likely malignant Failed outpatient treatment- 10 day course of Septra was prescribed 11/13/16 after sputum culture from 11/09/16 grew MRSA, took course of Levaquin, now on Keflex for past 6 days CXR shows left upper lobe opacity- favors pneumonia, radiographic follow up to ensure resolution is recommended Afebrile, + leukocytosis (? related to outpatient steroids finished 3d ago) IV Levaquin given in ER Continue IV antibiotics- Zosyn and vancomycin Blood cultures pending, check sputum culture, MRSA nasal swab, keep on contact precautions for now Continue supplemental O2, nebs QID HEMOPTYSIS Possibly due to pneumonia vs. malignancy Known lung mass, likely malignancy, declined workup in past CXR shows increasing size of right lung mass suspicious for neoplasm MILD TROPONIN ELEVATION HX CAD S/P CABG X4 Initial POC troponin 0.100 Denies chest pain Trend cardiac enzymes Continue beta luzmaria LUE PAIN/ SWELLING S/p mechanical fall 2 days ago No acute fracture on x-ray L shoulder or L forearm, ultrasound negative for DVT Ice packs, continue home pain medications, PT/ OT evals CHRONIC SYSTOLIC CHF EF 45% on 02/2014 echo Pro-BNP elevated to 13K, however no congestive failure on CXR Not on home diuretic currently Monitor volume status PAROXYSMAL ATRIAL FIBRILLATION Currently in NSR Continue amiodarone and metoprolol ANEMIA Baseline Hg 11's; was in 7's approx 2 weeks ago per family- now improved to 9's on PO iron supplement Monitor CBC CKD STAGE III Creatinine is at baseline Monitor renal function Avoid nephrotoxic agents DM TYPE 2 Diet controlled in past Novolog sliding scale coverage Check A1c in am DVT PROPHYLAXIS SCD's due to hemoptysis, anemia CODE STATUS DNR/DNI per my discussion with the patient and son at bedside. DISPOSITION Admission to telemetry Lives with and son PT, OT, social service evals requested Follows with Dr. Tyler for primary care Patient seen in collaboration with Dr. Hodges. Please see his addendum. Attending Addendum I have performed a history and physical examination of this patient and reviewed the electronic record. Pt failed outpatient treatment for pneumonia with Septra was prescribed 11/13/16 after sputum culture from 11/09/16 grew MRSA, took course of Levaquin, now on Keflex for past 6 days. He is been having worsening SOB with productive cough. We will start IV Vanco and Zosyn. I have discussed the case with Ida CHRISTIANSEN. The above note reflects my findings, conclusions, and recommendations. Moe Hodges MD Advanced Directives Existing Living Will: No Existing Power of Old Testament Professor: No VTE Prophylaxis VTE Risk Assessment Done? Y/N: Yes Risk Level: Moderate
[2016-12-25 21:06] LABS: CKMB/CK RATIO 11.9 (0-3.0)
[2016-12-25] MEDS: RANITIDINE HCL 150 MG TAB PO SCH (22:09)
[2016-12-25] MEDS: INSULIN ASPART 100 UNITS/ML 3 ML PEN SC SCH (22:15)
[2016-12-26] VITALS (11 sets, daily range): BP systolic 96–123; BP diastolic 48–62; PULSE 73–90; TEMP 36.7–37.6; O2SAT 93–99
[2016-12-26] MEDS: PIPERACILL/TAZOBAC IV 3.375 GM in DEXTROSE 5% 100ML IV SCH ×3 (00:27→16:40)
[2016-12-26] MEDS: OXYCODONE/ACETAMINOPHEN 5-325 TAB PO PRN ×2 (04:53→23:15)
[2016-12-26 06:02] LABS: HEMATOCRIT 26.9 % (42-52); MEAN CELL VOLUME 93.1 fL (80-100); MEAN CORPUSCULAR HEMOGLOBIN 29.8 pg (25-34); MEAN PLATELET VOLUME 8.4 fL (7.4-10.4); PLATELET COUNT 191 K/uL (130-400); RED BLOOD COUNT 2.89 M/uL (4.7-6.1); WHITE BLOOD COUNT 11.71 K/uL (4.8-10.8)
[2016-12-26 06:42] LABS: BUN/CREATININE RATIO 21.4 (10-20); CALCIUM 8.2 mg/dl (8.5-10.1); CREATININE 1.5 mg/dl (0.60-1.40); POTASSIUM 4.3 mmol/L (3.5-5.1)
[2016-12-26] MEDS: INSULIN ASPART 100 UNITS/ML 3 ML PEN SC SCH ×4 (07:00→21:00)
[2016-12-26 07:21] LABS: ESTIMATED AVERAGE GLUCOSE 157 mg/dl; HA1C FLAG Normal (Normal)
[2016-12-26] MEDS: ALBUT/IPRATROP 3MG/0.5MG NEB 3 ML VIAL INH SCH ×4 (07:31→19:09)
[2016-12-26] MEDS: AMIODARONE 200 MG TAB PO SCH (08:02)
[2016-12-26] MEDS: ASCORBIC ACID 500 MG TAB PO SCH (08:02)
[2016-12-26] MEDS: CHOLECALCIFEROL 1000 INTER.UNIT TAB PO SCH (08:02)
[2016-12-26] MEDS: CEROVITE ADV FORMULA TAB PO SCH (08:02)
[2016-12-26] MEDS: RANITIDINE HCL 150 MG TAB PO SCH ×2 (08:03→20:56)
--- NOTE | 2016-12-26 10:09 | Clinical Documentation Query ---
CLINICAL DOCUMENTATION QUERY Dr. PINEDA, In your clinical opinion is this patient being managed for: ( ) possible MRSA Pneumonia ( ) Other explanation of clinical findings (Please Explain) ( ) Unable to determine (Please Define) ( ) Need to Discuss ( ) Not Agree Please send it to Dr Hodges The medical record reflects the following clinical findings, treatment, and risk factors. Clinical Indicators: 86 yo male presenting with worsening edema, L upper love airspace opacity favoring pneumonia. Reportedly a cough with yellow sputum. MRSA swab +. Initially given IV levaquin in the ER. 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 Terms such as "probable", "suspected", "likely", "questionable", "possible", or "still to be ruled out" are acceptable. IF IN AGREEMENT, YOU MUST DOCUMENT ABOVE DIAGNOSTIC STATEMENT IN DAILY PROGRESS NOTES AND DISCHARGE SUMMARY. This document is not part of the patient's record. Thank You, Christina Jones, RN [phone]
[2016-12-26] MEDS: PANTOprazole SOD 40 MG TAB PO SCH (12:14)
[2016-12-26] MEDS: METOPROLOL SUCC 25MG EXT REL TAB PO SCH (12:14)
[2016-12-26] MEDS: MUPIROCIN 2% OINT 22 GM TUBE EXT SCH ×2 (12:15→20:55)
--- NOTE | 2016-12-26 14:55 | ECHOCARDIOGRAM REPORT ---
*NOTICE TO RECEIVING LIBERTARIAN AGENCY This information is strictly Confidential and protected under [place] law. [place] law prohibits you from making any further disclosure of this information unless further disclosure is expressly permitted by the written consent of the person to whom it pertains or is authorized by law. A general authorization for the release of medical or other information is not sufficient for this purpose. Hospital accepts no responsibility if the information is made available to any other person, INCLUDING THE PATIENT. Interpretation Summary * Echocardiogram Report * Name: SOFÍA BAILEY Study Date: 12/26/2016 07:00 AM BP: 123/56 mmHg * Patient Location: .2E\S\E210\S\1 HR: 73 * : 1930 (M/d/yyy) Gender: Male Height: 70 in * Age: 86 yrs Ethnicity: CA Weight: 124 lb * Ordering Physician: Ida Caraballo * Referring Physician: Self, Referred * Performed By: Magaly Duque RCS * * Reason For Study: SOB, Troponin bump, elevated BNP * BSA: 1.7 m2 * The study was technically adequate. * Compared to prior study, there is no significant change. * -- Conclusions -- * Ejection Fraction = 55-60%. * There is mild concentric left ventricular hypertrophy. * The base inferior and posterior wall are hypokinetic, otherwise, normal wall motion. * Grade I diastolic dysfunction, (abnormal relaxation pattern). * Aortic valve sclerosis moderate, without significant aortic valvular stenosis. * Small PFO by color doppler interrogation. Procedure Details * A complete two-dimensional transthoracic echocardiogram was performed (2D, M-mode, Doppler and color flow Doppler). Left Ventricle * The left ventricle is normal in size. * There is mild concentric left ventricular hypertrophy. * Ejection Fraction = 55-60%. * Left ventricular systolic function is normal. * The base inferior and posterior wall are hypokinetic, otherwise, normal wall motion. Right Ventricle * The right ventricular cavity size is normal (basal dimension <4.2 cm in right ventricular apical 4-chamber view). * The right ventricle is normal size. * The right ventricular systolic function is normal as assessed by tricuspid annular plane systolic excursion (TAPSE) (normal >1.5 cm). Atria * The left atrial size is normal. * Right atrial size is normal. * Small PFO by color doppler interrogation. Mitral Valve * The mitral valve is normal. * There is no mitral valve stenosis. * There is trace mitral regurgitation. Tricuspid Valve * The tricuspid valve is not well visualized. * There is no tricuspid stenosis. * Significant tricuspid regurgitation is absent. Aortic Valve * The aortic valve is not well visualized. * The aortic valve is mild to moderately calcifien in limited views. * Aortic valve sclerosis moderate, without significant aortic valvular stenosis. * Aortic stenosis is absent. * There is no significant aortic regurgitation. Pulmonic Valve * The pulmonary valve is not well seen, but the Doppler examination is normal without significant regurgitation or stenosis. Great Vessels * The aortic root is normal size. Pericardium/Pleural * There is no pericardial effusion. Great Vessels * Normal inferior vena cava diameter and respiratory variation suggests normal central venous pressure. Left Ventricular Diastolic Function * Grade I diastolic dysfunction, (abnormal relaxation pattern). MMode 2D Measurements and Calculations IVSd 0.86 cm LVIDd 4.4 cm LVIDs 2.7 cm LVPWd 0.87 cm IVS/LVPW 0.99 FS 39.3 % EDV(Teich) 87.0 ml ESV(Teich) 26.1 ml EF(Teich) 70.0 % EDV(cubed) 84.4 ml ESV(cubed) 18.9 ml EF(cubed) 77.6 % LV mass(C)d 121.0 grams LV mass(C)dI 71.0 grams/m\S\2 SV(Teich) 60.9 ml SI(Teich) 35.8 ml/m\S\2 SV(cubed) 65.5 ml SI(cubed) 38.4 ml/m\S\2 Ao root diam 2.1 cm Ao root area 3.6 cm\S\2 LVOT diam 2.1 cm LVOT area 3.4 cm\S\2 LVAd ap4 32.0 cm\S\2 LVLd ap4 8.7 cm EDV(MOD-sp4) 96.9 ml EDV(sp4-el) 100.2 ml LVAs ap4 16.6 cm\S\2 LVLs ap4 7.1 cm ESV(MOD-sp4) 33.7 ml ESV(sp4-el) 33.0 ml EF(MOD-sp4) 65.2 % EF(sp4-el) 67.1 % LVAd ap2 24.1 cm\S\2 LVLd ap2 8.1 cm EDV(MOD-sp2) 58.1 ml EDV(sp2-el) 60.9 ml LVAs ap2 13.7 cm\S\2 LVLs ap2 6.4 cm ESV(MOD-sp2) 25.0 ml ESV(sp2-el) 24.6 ml EF(MOD-sp2) 56.9 % EF(sp2-el) 59.5 % LVLd %diff -7.38 % EDV(MOD-bp) 77.8 ml LVLs %diff -9.73 % ESV(MOD-bp) 30.8 ml EF(MOD-bp) 60.5 % SV(MOD-sp4) 63.1 ml SI(MOD-sp4) 37.1 ml/m\S\2 SV(MOD-sp2) 33.0 ml SI(MOD-sp2) 19.4 ml/m\S\2 SV(MOD-bp) 47.1 ml SI(MOD-bp) 27.6 ml/m\S\2 SV(sp4-el) 67.2 ml SI(sp4-el) 39.5 ml/m\S\2 SV(sp2-el) 36.2 ml SI(sp2-el) 21.3 ml/m\S\2 Doppler Measurements and Calculations MV E max adin 80.0 cm/sec MV A max adin 84.4 cm/sec MV E/A 0.95 MV dec time 0.18 sec Ao V2 max 179.2 cm/sec Ao max PG 12.8 mmHg Ao max PG (full) 10.3 mmHg JACEK(V,A) 1.5 cm\S\2 JACEK(V,D) 1.5 cm\S\2 LV V1 max PG 2.5 mmHg LV V1 max 79.5 cm/sec
[2016-12-26] MEDS: TRAZODONE HCL 50 MG TAB PO SCH ×2 (16:40→20:55)
--- NOTE | 2016-12-26 17:08 | Progress Note ---
Medicine Progress Note Date & Time of Visit: Dec 26, 2016 at 16:43. Subjective Pt was seen and examined Sitting in chair eating lunch with family member present Pt said that he feels slightly better he continues to cough denies any chest pain, palpitation, dizziness, fever and chills spoke to son about pt progress Objective Last 8 Hrs Date Time Temp Pulse Resp B/P (MAP) Pulse Ox O2 Delivery O2 Flow Rate FiO2 12/26/16 16:00 Nasal Cannula 3.0 12/26/16 15:37 37.4 86 22 99/61 (74) 96 Nasal Cannula 3.0 12/26/16 15:16 80 22 98 Nasal Cannula 3.0 12/26/16 12:00 Nasal Cannula 3.0 12/26/16 11:53 37.0 88 20 119/62 (81) 99 Nasal Cannula 3.0 12/26/16 11:29 81 14 99 Nasal Cannula 3.0 Physical Exam: General- No acute distress Head- atraumatic Eyes- PERRL, EOMI ENT- oropharynx clear Neck- supple, no JVD Lungs- Coarse BS Heart- regular rhythm; no murmur Abdomen- normal bowel sounds, soft Extremities- no calf tenderness Neuro- alert, oriented, PERRL, EOMI; no facial palsy Skin- warm & dry Laboratory Results: Last 24 Hours Test 12/25/16 20:22 12/25/16 20:27 12/26/16 01:56 12/26/16 05:38 Total Creatine Kinase 16 U/L 12 U/L Creatine Kinase MB 1.9 ng/ml 1.2 ng/ml 0.8 ng/ml Creatine Kinase MB Ratio 11.9 10.0 Troponin I 0.107 ng/ml 0.117 ng/ml 0.112 ng/ml Bedside Glucose 206 mg/dl White Blood Count 11.71 K/uL Red Blood Count 2.89 M/uL Hemoglobin 8.6 g/dL Hematocrit 26.9 % Mean Corpuscular Volume 93.1 fL Mean Corpuscular Hemoglobin 29.8 pg Mean Corpuscular Hemoglobin Concent 32.0 g/dl RDW Standard Deviation 49.4 fL RDW Coefficient of Variation 14.5 % Platelet Count 191 K/uL Mean Platelet Volume 8.4 fL Sodium Level 137 mmol/L Potassium Level 4.3 mmol/L Chloride Level 102 mmol/L Carbon Dioxide Level 30 mmol/L Anion Gap 5.0 mmol/L Blood Urea Nitrogen 32 mg/dl Creatinine 1.50 mg/dl Est Creatinine Clear Calc Drug Dose 26.9 ml/min Estimated GFR () 47.5 Estimated GFR (Non- 41.0 BUN/Creatinine Ratio 21.4 Random Glucose 120 mg/dl Estimated Average Glucose 157 mg/dl Hemoglobin A1c 7.1 % Calcium Level 8.2 mg/dl Test 12/26/16 06:05 12/26/16 08:09 12/26/16 08:45 12/26/16 11:06 Bedside Glucose 130 mg/dl 262 mg/dl Creatine Kinase MB Ratio Troponin I 0.104 ng/ml Test 12/26/16 16:19 Bedside Glucose 183 mg/dl Date/Time Source Procedure Growth Status 12/25/16 19:15 Nasal MRSA DNA Surveillance Screen - Final Specimen Positive for MRSA by DNA Probe Complete Assessment & Plan COMMUNITY ACQUIRED PNEUMONIA Present with worsening SOB and cough Sputum cx on 11/09/16 grew MRSA Failed outpatient Abx treatment with Septra, levaquin and Keflex CXR on admission showed left upper lobe opacity- favors pneumonia, radiographic follow up to ensure resolution is recommended Received IV Levaquin given in ER Elevated WBC on admission, might be related to steroid wbc trending down Continue IV Zosyn and vancomycin Blood cultures and sputum culture pending Started on Prednisone 40mg Continue supplemental O2, nebs QID HEMOPTYSIS Possibly due to pneumonia vs. malignancy Known lung mass, likely malignancy, pt Pt and family aware of the lung mass declined workup in the past and now CXR shows increasing size of right lung mass suspicious for neoplasm Might consider to get a CT chest MILD TROPONIN ELEVATION HX CAD S/P CABG X4 possible related to elevated creatine Initial POC troponin 0.100 Denies any chest pain cardiac marker trending down Continue beta luzmaria ECHO done showed * -- Conclusions -- * Ejection Fraction = 55-60%. * There is mild concentric left ventricular hypertrophy. * The base inferior and posterior wall are hypokinetic, otherwise, normal wall motion. * Grade I diastolic dysfunction, (abnormal relaxation pattern). * Aortic valve sclerosis moderate, without significant aortic valvular stenosis. * Small PFO by color doppler interrogation * Compared to prior study, there is no significant change. LUE PAIN/ SWELLING S/p mechanical fall 2 days ago No acute fracture on x-ray L shoulder or L forearm, ultrasound negative for DVT apply compress, pt refused it continue home pain medications, PT/ OT eval fall precaution CHRONIC SYSTOLIC CHF EF 45% on 02/2014 echo Repeat Echo showed EF btw 55 to 60% Pro-BNP Elevated to 13K, however No CHF on CXR Monitor for fluid overload PAROXYSMAL ATRIAL FIBRILLATION Rate control Currently in NSR Continue amiodarone and metoprolol ANEMIA Hbg 11 at baseline, was in 7's approx 2 weeks ago per family- Hbg today 8.6 Continue PO iron supplement Monitor CBC CKD STAGE III Creatinine is at baseline Stable Avoid nephrotoxic agents DM TYPE 2 Diet controlled in past Hba1c 7.1 on 12/21 Novolog sliding scale coverage DVT PROPHYLAXIS SCD's due to hemoptysis, anemia CODE STATUS DNR/DNI DISPOSITION Continue monitor to telemetry Follows with Dr. Tyler for primary care Updated family about his hospital course and lab Current Inpatient Medications: Current Inpatient Medications Medications (Trade) Dose Ordered Sig/Bruno Route Start Time Stop Time Status Last Admin Dose Admin Acetaminophen (Tylenol Tab) 650 mg Q4H PRN PO 12/25/16 17:00 01/24/17 16:59 Ondansetron HCl (Zofran Inj) 4 mg Q6H PRN IV 12/25/16 17:00 01/24/17 16:59 Nitroglycerin (Nitrostat Tab) 0.4 mg UD PRN SL 12/25/16 17:00 01/24/17 16:59 Insulin Aspart (novoLOG ASPART) SLIDING SCALE If C... ACHS SC 12/25/16 21:00 01/24/17 20:59 12/26/16 12:14 4 UNITS Glucose (Glucose 40% Gel) 15-30 GRAMS 15 GRAMS... UD PRN PO 12/25/16 17:15 01/24/17 17:14 Glucose (Glucose Chew Tab) 4-8 Tablets 4 Tabl... UD PRN PO 12/25/16 17:15 01/24/17 17:14 Dextrose (Dextrose 50% 50ML Syringe) 25-50ML OF 50% DW IV FOR... UD PRN IV 12/25/16 17:15 01/24/17 17:14 Glucagon (Glucagon Inj) 1 mg UD PRN SQ 12/25/16 17:15 01/24/17 17:14 Vancomycin HCl (Consult) 1 ea UD PRN N/A 12/25/16 17:30 01/24/17 17:29 Piperacillin Sod/ Tazobactam Sod (Consult) 1 ea UD PRN N/A 12/25/16 17:30 01/24/17 17:29 Amiodarone HCl (Cordarone Tab) 100 mg DAILY PO 12/26/16 09:00 01/25/17 08:59 12/26/16 08:02 100 MG Ascorbic Acid (Vitamin C Tab) 500 mg DAILY PO 12/26/16 09:00 01/25/17 08:59 12/26/16 08:02 500 MG Cholecalciferol (Vitamin D Tab) 1,000 inter.unit QAM PO 12/26/16 09:00 01/25/17 08:59 12/26/16 08:02 1,000 INTER.UNIT Codeine Phosphate/ Guaifenesin (Robitussin-AC Sugar Free Syrup) 5 ml Q4 PRN PO 12/25/16 17:45 01/24/17 17:44 12/25/16 22:10 5 ML Metoprolol Succinate (Toprol Xl Tab) 12.5 mg DAILY@1200 PO 12/26/16 12:00 01/25/17 11:59 12/26/16 12:14 12.5 MG Oxycodone/ Acetaminophen (Percocet 5-325mg Tab) 0.5 tab Q4H PRN PO 12/25/16 17:45 01/08/17 17:44 12/26/16 04:53 0.5 TAB Pantoprazole Sodium (Protonix Tab) 40 mg DAILY@1200 PO 12/26/16 12:00 01/25/17 11:59 12/26/16 12:14 40 MG Ranitidine HCl (zANTac TAB) 150 mg BID PO 12/25/16 21:00 01/24/17 20:59 12/26/16 08:03 150 MG Trazodone HCl (Desyrel Tab) 25 mg QDD PO 12/25/16 18:00 01/24/17 17:59 Trazodone HCl (Desyrel Tab) 50 mg HS PO 12/25/16 21:00 01/24/17 20:59 12/25/16 22:09 50 MG Multivitamins/ Minerals (Multivitamin W/ Minerals Tab) 1 tab DAILY PO 12/26/16 09:00 01/25/17 08:59 12/26/16 08:02 1 TAB Albuterol/ Ipratropium (Duoneb) 3 ml QIDR INH 12/25/16 20:00 01/24/17 19:59 12/26/16 15:13 3 ML Albuterol/ Ipratropium (Duoneb) 3 ml Q2H PRN INH 12/25/16 18:30 01/24/17 18:29 Piperacillin Sod/ Tazobactam Sod 3.375 gm/Dextrose 115 ml @ 28.75 mls/ hr Q8H IV 12/26/16 00:00 01/02/17 00:00 12/26/16 08:07 28.75 MLS/HR Vancomycin HCl 750 mg/Sodium Chloride 265 ml @ 125 mls/hr Q24H IV 12/26/16 18:00 01/01/17 17:59 Mupirocin (Bactroban 2% Oint) 1 appln BID EXT 12/26/16 09:00 01/25/17 08:59 12/26/16 12:15 1 APPLN Prednisone (PredniSONE TAB) 40 mg DAILY PO 12/27/16 09:00 01/26/17 08:59
[2016-12-26] MEDS ORDERED: VANCOMYCIN INJ 750 MG in SODIUM CHLORIDE 0.9% 250ML 250 ML IV SCH (18:00)
[2016-12-26] MEDS: VANCOMYCIN INJ 750 MG in SODIUM CHLORIDE 0.9% 250ML 250 ML IV SCH (23:06)
[2016-12-27] VITALS (13 sets, daily range): BP systolic 96–129; BP diastolic 47–74; PULSE 66–88; TEMP 36.4–36.8; O2SAT 93–99
[2016-12-27] MEDS: PIPERACILL/TAZOBAC IV 3.375 GM in DEXTROSE 5% 100ML IV SCH ×3 (01:31→16:45)
[2016-12-27 06:04] LABS: HEMATOCRIT 25.9 % (42-52); MEAN CELL VOLUME 94.2 fL (80-100); MEAN CORPUSCULAR HEMOGLOBIN 29.8 pg (25-34); MEAN CORPUSCULAR HGB CONC 31.7 g/dl (32-36); MEAN PLATELET VOLUME 8.6 fL (7.4-10.4); PLATELET COUNT 191 K/uL (130-400); RED BLOOD COUNT 2.75 M/uL (4.7-6.1); WHITE BLOOD COUNT 9.81 K/uL (4.8-10.8)
[2016-12-27 06:48] LABS: CALCIUM 8.1 mg/dl (8.5-10.1); CREATININE 1.7 mg/dl (0.60-1.40); POTASSIUM 4.8 mmol/L (3.5-5.1)
[2016-12-27] MEDS: ALBUT/IPRATROP 3MG/0.5MG NEB 3 ML VIAL INH SCH ×4 (07:08→19:55)
[2016-12-27] MEDS: INSULIN ASPART 100 UNITS/ML 3 ML PEN SC SCH ×3 (07:33→21:00)
--- NOTE | 2016-12-27 07:49 | Clinical Documentation Query ---
CLINICAL DOCUMENTATION QUERY Dr. POLLACK, In your clinical opinion is this patient being managed for: ( X ) possible MRSA Pneumonia ( ) Other explanation of clinical findings (Please Explain) ( ) Unable to determine (Please Define) ( ) Need to Discuss ( ) Not Agree The medical record reflects the following clinical findings, treatment, and risk factors. Clinical Indicators: 86 yo male presenting with worsening edema, L upper love airspace opacity favoring pneumonia. Reportedly a cough with yellow sputum. MRSA swab +. Initially given IV levaquin in the ER. 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 Terms such as "probable", "suspected", "likely", "questionable", "possible", or "still to be ruled out" are acceptable. IF IN AGREEMENT, YOU MUST DOCUMENT ABOVE DIAGNOSTIC STATEMENT IN DAILY PROGRESS NOTES AND DISCHARGE SUMMARY. This document is not part of the patient's record. Thank You, Christina Jones RN [phone]
[2016-12-27] MEDS: PANTOprazole SOD 40 MG TAB PO SCH (08:24)
[2016-12-27] MEDS: MUPIROCIN 2% OINT 22 GM TUBE EXT SCH ×2 (08:24→21:18)
[2016-12-27] MEDS: RANITIDINE HCL 150 MG TAB PO SCH ×2 (08:24→21:18)
[2016-12-27] MEDS: AMIODARONE 200 MG TAB PO SCH (08:24)
[2016-12-27] MEDS: CEROVITE ADV FORMULA TAB PO SCH (08:24)
[2016-12-27] MEDS: CHOLECALCIFEROL 1000 INTER.UNIT TAB PO SCH (08:25)
[2016-12-27] MEDS: ASCORBIC ACID 500 MG TAB PO SCH (08:25)
--- NOTE | 2016-12-27 11:19 | Progress Note ---
Medicine Progress Note Date & Time of Visit: Dec 27, 2016 at 11:08. Subjective patient seen resting in bedside chair states he feels improved compared to yesterday, 95% on room air states he still has productive cough - yellow sputum but no dyspnea, chest pain , hemoptysis feels off balance with walking otherwise, no other symptoms Objective Last 8 Hrs Date Time Temp Pulse Resp B/P (MAP) Pulse Ox O2 Delivery O2 Flow Rate FiO2 12/27/16 08:21 36.8 77 18 120/61 (80) 96 12/27/16 08:00 99 Nasal Cannula 3.0 12/27/16 07:08 66 20 99 Nasal Cannula 3.0 12/27/16 04:00 36.5 68 20 107/54 (71) 98 Nasal Cannula 3.0 12/27/16 04:00 Nasal Cannula 3.0 Physical Exam: General- oriented x 3, not in distress, speaks in sentences with no effort Head- atraumatic Eyes- EOMI, anicteric ENT- oropharynx clear Neck- supple, no JVD, no adenopathy, no thyromegaly Lungs- scattered rales left lung, mild rales on the right base, no wheezing Heart- regular rhythm; no murmur, normal rate Abdomen- normal bowel sounds, soft, nontender Extremities- no pretibial edema, no calf tenderness Neuro- alert, oriented x 3 no gross focal neuro deficits Skin- warm & dry Laboratory Results: Last 24 Hours Test 12/26/16 16:19 12/26/16 20:42 12/27/16 05:32 12/27/16 06:49 Bedside Glucose 183 mg/dl 225 mg/dl 236 mg/dl White Blood Count 9.81 K/uL Red Blood Count 2.75 M/uL Hemoglobin 8.2 g/dL Hematocrit 25.9 % Mean Corpuscular Volume 94.2 fL Mean Corpuscular Hemoglobin 29.8 pg Mean Corpuscular Hemoglobin Concent 31.7 g/dl RDW Standard Deviation 49.7 fL RDW Coefficient of Variation 14.5 % Platelet Count 191 K/uL Mean Platelet Volume 8.6 fL Sodium Level 134 mmol/L Potassium Level 4.8 mmol/L Chloride Level 100 mmol/L Carbon Dioxide Level 28 mmol/L Anion Gap 6.0 mmol/L Blood Urea Nitrogen 31 mg/dl Creatinine 1.70 mg/dl Est Creatinine Clear Calc Drug Dose 24.6 ml/min Estimated GFR () 40.8 Estimated GFR (Non- 35.2 BUN/Creatinine Ratio 18.0 Random Glucose 205 mg/dl Calcium Level 8.1 mg/dl Date/Time Source Procedure Growth Status 12/27/16 08:27 Sputum Expectorated Sputum Gram Stain Pending Received 12/27/16 08:27 Sputum Expectorated Sputum Sputum Culture Pending Received Assessment & Plan 86 year old male with history of COPD on O2 at , CAD, CHF, DM, Paroxysmal A fib presenting with shortness of breath. COMMUNITY ACQUIRED PNEUMONIA Present with worsening SOB and cough Sputum cx on 11/09/16 grew MRSA- sensitive to bactrim, vanco, gentamin, rifampin Failed outpatient Abx treatment with Septra, Levaquin and Keflex CXR on admission showed left upper lobe opacity- favors pneumonia WBC now normalized off oxygen Blood cultures: negative Sputum culture: pending Urine culture: pending Day 2 Zosyn and vancomycin IV Prednisone taper Nebs q6h -- will order ID consult will order Speech Therapy Eval to r/o Aspiration HEMOPTYSIS Possibly due to pneumonia vs. malignancy Known lung mass, likely malignancy, pt Pt and family aware of the lung mass declined workup in the past and now CXR shows increasing size of right lung mass suspicious for neoplasm -- may need CT chest MILD TROPONIN ELEVATION HX CAD S/P CABG X4 possible related to elevated creatine Initial POC troponin 0.100 Denies any chest pain cardiac marker trending down Continue beta luzmaria ECHO done showed * -- Conclusions -- * Ejection Fraction = 55-60%. * There is mild concentric left ventricular hypertrophy. * The base inferior and posterior wall are hypokinetic, otherwise, normal wall motion. * Grade I diastolic dysfunction, (abnormal relaxation pattern). * Aortic valve sclerosis moderate, without significant aortic valvular stenosis. * Small PFO by color doppler interrogation * Compared to prior study, there is no significant change. LUE PAIN/ SWELLING S/p mechanical fall 2 days ago No acute fracture on x-ray L shoulder or L forearm, ultrasound negative for DVT continue home pain medications elevate arm CHRONIC SYSTOLIC CHF EF 45% on 02/2014 echo Repeat Echo showed EF btw 55 to 60% -- repeat CXR today PAROXYSMAL ATRIAL FIBRILLATION rate controlled Continue amiodarone and metoprolol ANEMIA Hbg 11 at baseline, was in 7's approx 2 weeks ago per family- Hbg 8,2 Continue PO iron supplement Monitor CBC CKD STAGE III Creatinine is at baseline Stable DM TYPE 2 Diet controlled in past Hba1c 7.1 on 12/21 Novolog sliding scale coverage -- will order Pharmacy Glycemic Control consult DVT PROPHYLAXIS SCD's due to hemoptysis, anemia CODE STATUS DNR/DNI DISPOSITION Continue monitor to telemetry Follows with Dr. Tyler for primary care -- discussed plan of care with patient and his family, they are comfortable with plan of care Current Inpatient Medications: Current Inpatient Medications Medications (Trade) Dose Ordered Sig/Bruno Route Start Time Stop Time Status Last Admin Dose Admin Acetaminophen (Tylenol Tab) 650 mg Q4H PRN PO 12/25/16 17:00 01/24/17 16:59 Ondansetron HCl (Zofran Inj) 4 mg Q6H PRN IV 12/25/16 17:00 01/24/17 16:59 Nitroglycerin (Nitrostat Tab) 0.4 mg UD PRN SL 12/25/16 17:00 01/24/17 16:59 Insulin Aspart (novoLOG ASPART) SLIDING SCALE If C... ACHS SC 12/25/16 21:00 01/24/17 20:59 12/27/16 07:33 8 UNITS Glucose (Glucose 40% Gel) 15-30 GRAMS 15 GRAMS... UD PRN PO 12/25/16 17:15 01/24/17 17:14 Glucose (Glucose Chew Tab) 4-8 Tablets 4 Tabl... UD PRN PO 12/25/16 17:15 01/24/17 17:14 Dextrose (Dextrose 50% 50ML Syringe) 25-50ML OF 50% DW IV FOR... UD PRN IV 12/25/16 17:15 01/24/17 17:14 Glucagon (Glucagon Inj) 1 mg UD PRN SQ 12/25/16 17:15 01/24/17 17:14 Vancomycin HCl (Consult) 1 ea UD PRN N/A 12/25/16 17:30 01/24/17 17:29 Piperacillin Sod/ Tazobactam Sod (Consult) 1 ea UD PRN N/A 12/25/16 17:30 01/24/17 17:29 Amiodarone HCl (Cordarone Tab) 100 mg DAILY PO 12/26/16 09:00 01/25/17 08:59 12/27/16 08:24 100 MG Ascorbic Acid (Vitamin C Tab) 500 mg DAILY PO 12/26/16 09:00 01/25/17 08:59 12/27/16 08:25 500 MG Cholecalciferol (Vitamin D Tab) 1,000 inter.unit QAM PO 12/26/16 09:00 01/25/17 08:59 12/27/16 08:25 1,000 INTER.UNIT Codeine Phosphate/ Guaifenesin (Robitussin-AC Sugar Free Syrup) 5 ml Q4 PRN PO 12/25/16 17:45 01/24/17 17:44 12/25/16 22:10 5 ML Metoprolol Succinate (Toprol Xl Tab) 12.5 mg DAILY@1200 PO 12/26/16 12:00 01/25/17 11:59 12/26/16 12:14 12.5 MG Oxycodone/ Acetaminophen (Percocet 5-325mg Tab) 0.5 tab Q4H PRN PO 12/25/16 17:45 01/08/17 17:44 12/26/16 23:15 0.5 TAB Ranitidine HCl (zANTac TAB) 150 mg BID PO 12/25/16 21:00 01/24/17 20:59 12/27/16 08:24 150 MG Trazodone HCl (Desyrel Tab) 25 mg QDD PO 12/25/16 18:00 01/24/17 17:59 12/26/16 16:40 25 MG Trazodone HCl (Desyrel Tab) 50 mg HS PO 12/25/16 21:00 01/24/17 20:59 12/26/16 20:55 50 MG Multivitamins/ Minerals (Multivitamin W/ Minerals Tab) 1 tab DAILY PO 12/26/16 09:00 01/25/17 08:59 12/27/16 08:24 1 TAB Albuterol/ Ipratropium (Duoneb) 3 ml QIDR INH 12/25/16 20:00 01/24/17 19:59 12/27/16 07:08 3 ML Albuterol/ Ipratropium (Duoneb) 3 ml Q2H PRN INH 12/25/16 18:30 01/24/17 18:29 Piperacillin Sod/ Tazobactam Sod 3.375 gm/Dextrose 115 ml @ 28.75 mls/ hr Q8H IV 12/26/16 00:00 01/02/17 00:00 12/27/16 08:24 28.75 MLS/HR Mupirocin (Bactroban 2% Oint) 1 appln BID EXT 12/26/16 09:00 01/25/17 08:59 12/27/16 08:24 1 APPLN Prednisone (PredniSONE TAB) 40 mg DAILY PO 12/27/16 09:00 01/26/17 08:59 12/27/16 08:25 40 MG Vancomycin HCl 750 mg/Sodium Chloride 265 ml @ 125 mls/hr Q24H IV 12/26/16 22:00 01/01/17 21:59 12/26/16 23:06 125 MLS/HR Prednisone (PredniSONE TAB) 30 mg DAILY PO 12/28/16 09:00 01/27/17 08:59 UNV
[2016-12-27] MEDS ORDERED: PHARMACY GLYCEMIC MGMT CONSULT PRN (11:25)
[2016-12-27] MEDS ORDERED: INSULIN IV INFUSION PROTOCOL SCH (12:00)
--- NOTE | 2016-12-27 12:06 | Progress Note ---
Progress Note Date of Service Dec 27, 2016. Progress Note ID Consult dictated #[id number] A/P: 1. Pna -recent MRSA -Continue current abx pending sputum culture -Could change vanco to po zyvox -Final recs based on culture results -Will follow, thank you
--- NOTE | 2016-12-27 12:19 | INFECT. DISEASE CONSULTATION ---
DATE OF CONSULTATION: 12/27/2016 DATE OF CONSULTATION: 12/27/2016 REQUESTING PHYSICIAN: Dr. Hodges. HISTORY OF PRESENT ILLNESS: This is an 86-year-old gentleman who was admitted with worsening shortness of breath and hypoxemia at home. He was also hypertensive on home nursing evaluation. He did report a cough productive of yellow sputum for the past 1-2 days prior to admission. He recently had a sputum culture dated 11/09/2016 reportedly growing MRSA. He was given a course of Levaquin and then Keflex. He was on Keflex up until the time of admission yesterday. He had also been on a prednisone taper which was just recently finished prior to admission. He does not require oxygen at home. Prior to his admission, he had a fall at home as well. He did have some complaints of fatigue at that time. Currently, he is out of bed and eating lunch. His is present and states he has significantly improved since admission to the hospital. He was started empirically on vancomycin and Zosyn and his prednisone was continued. His white blood cell count was greater than 12,000 on admission, but has improved to 9.8. He did have a creatinine as high as 1.7 and his troponins are mildly positive. He states his cough has significantly improved and is now only occasional with minimal sputum production. A sputum culture was obtained today and is pending. He did have a chest x-ray yesterday which showed a left upper lobe infiltrate which was new from his previous admission. His MRSA swab is positive. He does have a known right upper lobe mass which was seen back in January of last year; however he has declined any additional workup of that. His blood cultures have been negative since admission. He is tolerating antibiotics. He denies any pleuritic chest pain. He denies any hemoptysis. He denies any shortness of breath currently. Overall, his cough is improving. His energy level is improving. He denies any nausea, vomiting, diarrhea or abdominal pain. All remaining review of systems are reviewed and are unremarkable except or as noted. PAST MEDICAL HISTORY: Significant for anemia, BPH, coronary artery disease, CHF, chronic obstructive pulmonary disease, hypoxemia with chronic O2, chronic kidney disease, type 2 diabetes, heart catheterization, hypertension, hyperlipidemia, lung tumor for which he has declined workup, history of [place], history of carotid endarterectomy, history of knee surgery, bowel resection, carpal tunnel surgery, heart stent and CABG x4 in the . FAMILY HISTORY: Noncontributory. SOCIAL HISTORY: Significant for history of tobacco use. He has no alcohol or drug use. He is and lives with family. ALLERGIES: ALLERGY TO ADHESIVES. CURRENT MEDICATIONS: Include prednisone, insulin, vancomycin, Toprol-XL, Protonix, amiodarone, vitamin C, vitamin D, multivitamin, Zosyn, ranitidine, trazodone, DuoNebs, Robitussin, Percocet and Tylenol. PHYSICAL EXAMINATION: VITAL SIGNS: He is afebrile, T-max yesterday was 37.6, this was isolated, pulse 77, respiratory rate 18, blood pressure 120/61, oxygen saturation is 94-99%. GENERAL: He is awake, alert and oriented x3. He is out of bed to chair eating lunch. HEAD, EYES, EARS, NOSE, AND THROAT: Mucous membranes are moist. Extraocular muscles are intact. HEART: Regular. I do not auscultate a murmur. LUNGS: Clear bilaterally. ABDOMEN: Soft, nontender, nondistended. There is no edema. There is left upper extremity edema secondary to his fall at home. LABORATORY STUDIES: CBC today reveals a white blood cell count of 9.8, hemoglobin 8.2 and platelets are 191. Chemistry panel reveals a sodium of 134, potassium 4.8, chloride 100, bicarb 28, BUN 31, creatinine 1.7, glucose is 236. Urinalysis is negative. Blood cultures are no growth to date x2 sets from the . On the sputum is pending. Chest x-ray shows left upper lobe pneumonia. ASSESSMENT AND PLAN: Community-acquired pneumonia with history of methicillin-resistant staphylococcus aureus. Certainly he should be covered with antibiotics for MRSA, especially given his positive nasal swab. His blood cultures are negative to date. Sputum culture is pending. Hopefully, antibiotics could be narrowed. Certainly his vancomycin could be changed to oral Zyvox to complete a course for suspected MRSA pneumonia; however, sputum culture is pending and I will follow up the results of this. Thank you for this consultation.
[2016-12-27] MEDS: METOPROLOL SUCC 25MG EXT REL TAB PO SCH (12:45)
[2016-12-27] MEDS ORDERED: INSULIN REGULAR 250 UNITS in SODIUM CHLORIDE 0.9% 250ML 250 ML IV SCH (13:00)
[2016-12-27] MEDS ORDERED: INSULIN HUMAN REGULAR IV BOLUS 2 UNIT in SYRINGE 0 ML IV ONE (13:00)
[2016-12-27] MEDS: INSULIN GLARGINE SOLOSTAR 100 UNITS/ML 3 ML PEN SC SCH ×2 (13:17→21:21)
--- NOTE | 2016-12-27 13:49 | Pharmacy Progress Note ---
Glycemic Control Intl Consult Date of Service Dec 27, 2016. Scope Glycemic Pharmacist consulted by Dr Lynn on 12/27/16 for glycemic control and to write orders per [facility] inpatient glycemic control protocol Objective Weight (Kilograms): 58.000 Accuchecks BSG (last 24hrs): Test 12/26/16 16:19 12/26/16 20:42 12/27/16 05:32 12/27/16 06:49 Bedside Glucose 183 mg/dl (70-99) 225 mg/dl (70-99) 236 mg/dl (70-99) Random Glucose 205 mg/dl (70-99) Test 12/27/16 11:15 Bedside Glucose 354 mg/dl (70-99) Laboratory Data (last 24hrs) Test 12/27/16 05:32 Anion Gap 6.0 mmol/L BUN/Creatinine Ratio 18.0 Blood Urea Nitrogen 31 mg/dl Creatinine 1.70 mg/dl Potassium Level 4.8 mmol/L Sodium Level 134 mmol/L White Blood Count 9.81 K/uL HbA1c Test 12/26/16 05:38 Hemoglobin A1c 7.1 % (4.5-5.6) H Recent Pertinent Medications Outpatient Anti-diabetic Regimen: * N/A The patient is currently receiving: * Correctional Insulin: Novolog Correction per scale ACHS Goal Range: Low 140 mg/dL - High 180 mg/dL Correction Factor: 40 mg/dL/unit * Prandial insulin: Per carb ratio of 1 unit per 14 grams CHO consumed Risk Factors for Insulin Resistance: * Steroids * Infection * Diet Assessment & Plan ASSESSMENT: * 86 yo M admitted for treatment of pneumonia, initiated on PO steroids which have caused BSGs to climb * Over the past 24 hours, patient has received wt based/stress of 2 Novolog coverage only * Fasting BSG this AM 236, followed by a further elevated lunch BSG 359 * Spoke with MD regarding plan * This is steroid-induced hyperglycemia * Novolog coverage needs to be tighter * Lack of basal insulin has caused BSGs to climb * Insulin drip overlapped with Lantus would allow us to reach goal BSGs safely and more efficiently than SQ alone * ADA & AACE recommend a goal blood sugar range 140-180 mg/dl for the majority of critically ill & non-critically ill patients. However, more stringent targets may be selected in individual cases. PLAN FOR INPATIENT GLYCEMIC CONTROL: * Starting IV insulin infusion per severe stress protocol * Goal Range 100 - 200 mg/dl * In the critical care setting, continuous IV insulin infusion has been shown to be the best method for achieving glycemic targets. * Basal insulin with LANTUS 10 units SQ BID * Overlap basal insulin with drip to help transition smoothly * Correctional Insulin with NOVOLOG per scale PCHS * Please note that the plan above was derived based on current level of insulin resistance and hospital stress. These recommendations are appropriate for inpatient admission only. Plan of care upon discharge will need to be reassessed to avoid potential outpatient hypo/hyperglycemia. Thank you.
--- NOTE | 2016-12-27 14:55 | DIAGNOSTIC IMAGING REPORT ---
CHEST ONE VIEW PORTABLE CLINICAL HISTORY: 86 years-old Male presenting with follow up. TECHNIQUE: Portable upright AP view of the chest was obtained. COMPARISON: 12/25/2016. FINDINGS: The patient is ARCHIBALD rotated. Median sternotomy wires, mediastinal surgical clips and additional surgical material remain in place. Multiple overlying leads degrade image quality. Persistent elevation of the left hemidiaphragm. Right lung remains hyperinflated. Hazy patchy opacities in the upper lungs, left greater than right. No large effusion or pneumothorax. Osseous structures normal. Upper abdomen normal. IMPRESSION: 1. Left greater than right upper lung opacities raise concern for multifocal pneumonia. Further evaluation with chest CT to be considered given the concern raised on the prior radiograph for neoplasm in the right upper lung. Electronically signed by: Chidi Moreland M.D. 12/27/2016 2:53 PM Dictated Date/Time: 12/27/2016 2:51 PM
[2016-12-27] MEDS: TRAZODONE HCL 50 MG TAB PO SCH ×2 (17:05→21:18)
[2016-12-27] MEDS: OXYCODONE/ACETAMINOPHEN 5-325 TAB PO PRN (21:19)
[2016-12-27] MEDS: VANCOMYCIN INJ 750 MG in SODIUM CHLORIDE 0.9% 250ML 250 ML IV SCH (21:27)
[2016-12-28] VITALS (11 sets, daily range): BP systolic 95–135; BP diastolic 46–69; PULSE 70–82; TEMP 36.3–36.9; O2SAT 92–99; Ht 180.3 cm; Wt 58.1 kg
[2016-12-28] MEDS: DEXTROSE 50% 50 ML SYR IV PRN ×2 (00:07→04:05)
[2016-12-28] MEDS: PIPERACILL/TAZOBAC IV 3.375 GM in DEXTROSE 5% 100ML IV SCH ×4 (00:07→23:59)
[2016-12-28 07:20] LABS: CREATININE 1.7 mg/dl (0.60-1.40)
[2016-12-28] MEDS: ALBUT/IPRATROP 3MG/0.5MG NEB 3 ML VIAL INH SCH ×4 (08:06→19:25)
[2016-12-28] MEDS: INSULIN ASPART 100 UNITS/ML 3 ML PEN SC SCH ×4 (08:10→20:17)
[2016-12-28] MEDS: INSULIN GLARGINE SOLOSTAR 100 UNITS/ML 3 ML PEN SC SCH ×2 (08:11→20:18)
[2016-12-28] MEDS: CEROVITE ADV FORMULA TAB PO SCH (08:21)
[2016-12-28] MEDS: MUPIROCIN 2% OINT 22 GM TUBE EXT SCH ×2 (08:21→20:19)
[2016-12-28] MEDS: AMIODARONE 200 MG TAB PO SCH (08:21)
[2016-12-28] MEDS: ASCORBIC ACID 500 MG TAB PO SCH (08:22)
[2016-12-28] MEDS: RANITIDINE HCL 150 MG TAB PO SCH ×2 (08:22→20:13)
[2016-12-28] MEDS: CHOLECALCIFEROL 1000 INTER.UNIT TAB PO SCH (08:22)
--- NOTE | 2016-12-28 10:01 | Progress Note ---
Medicine Progress Note Date & Time of Visit: Dec 28, 2016 at 09:54. Subjective seen laying in bed, comfortable, off nasal cannula states he feels improved today no dyspnea, less cough, no hemoptysis still reports "burning" with urination, no straining no other symptoms Objective Last 8 Hrs Date Time Temp Pulse Resp B/P (MAP) Pulse Ox O2 Delivery O2 Flow Rate FiO2 12/28/16 08:13 74 18 96 Room Air 12/28/16 07:51 36.9 75 20 105/47 (66) 92 Room Air 12/28/16 04:10 Nasal Cannula 3.0 12/28/16 03:55 36.5 71 18 100/49 (66) 99 Nasal Cannula 2.0 Physical Exam: General- oriented x 3, not in distress, speaks in sentences with no effort Eyes- anicteric Neck- no JVD Lungs- scattered rales left lung, clear on the right , no wheezing Heart- regular rhythm; no murmur, normal rate Abdomen- normal bowel sounds, soft, nontender Extremities- no pretibial edema, no calf tenderness Neuro- alert, oriented x 3 no gross focal neuro deficits Skin- warm & dry Laboratory Results: Last 24 Hours Test 12/27/16 11:15 12/27/16 14:16 12/27/16 15:18 12/27/16 16:27 Bedside Glucose 354 mg/dl 348 mg/dl 314 mg/dl 366 mg/dl Test 12/27/16 17:29 12/27/16 18:36 12/27/16 19:18 12/27/16 20:28 Bedside Glucose 326 mg/dl 302 mg/dl 245 mg/dl 192 mg/dl Test 12/27/16 21:33 12/27/16 22:18 12/27/16 23:19 12/27/16 23:32 Bedside Glucose 159 mg/dl 140 mg/dl 98 mg/dl 93 mg/dl Test 12/27/16 23:58 12/28/16 01:01 12/28/16 01:58 12/28/16 03:05 Bedside Glucose 86 mg/dl 131 mg/dl 119 mg/dl 94 mg/dl Test 12/28/16 03:55 12/28/16 04:22 12/28/16 05:23 12/28/16 06:12 Bedside Glucose 79 mg/dl 138 mg/dl 119 mg/dl Creatinine 1.70 mg/dl Est Creatinine Clear Calc Drug Dose 24.9 ml/min Estimated GFR () 40.8 Estimated GFR (Non- 35.2 Test 12/28/16 06:27 12/28/16 07:26 12/28/16 09:33 Bedside Glucose 90 mg/dl 94 mg/dl Date/Time Source Procedure Growth Status 12/27/16 17:00 Urine , Clean Catch Urine Culture Pending Received Assessment & Plan 86 year old male with history of COPD on O2 at , CAD, CHF, DM, Paroxysmal A fib presenting with shortness of breath. 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 Moist dental soft diet 2. Aspiration precautions: straws okay 3. Compensatory strategies: FULLY UPRIGHT for meals and for ~15 minutes after meals; alternate solids and liquids during meals; avoid icy cold beverages; make sure to complete oral hygiene AT LEAST twice per day DYSURIA -- (+) microscopic hematuria -- has history of TURBT in [address] Yao -- will consult Urologist HEMOPTYSIS Possibly due to pneumonia vs. malignancy Known lung mass, likely malignancy Pt and family aware of the lung mass declined workup in the past and now CXR shows increasing size of right lung mass suspicious for neoplasm -- resolved CT chest ordered MILD TROPONIN ELEVATION HX CAD S/P CABG X4 possible related to elevated creatine Initial POC troponin 0.100 Denies any chest pain cardiac marker trending down Continue beta luzmaria ECHO done showed * -- Conclusions -- * Ejection Fraction = 55-60%. * There is mild concentric left ventricular hypertrophy. * The base inferior and posterior wall are hypokinetic, otherwise, normal wall motion. * Grade I diastolic dysfunction, (abnormal relaxation pattern). * Aortic valve sclerosis moderate, without significant aortic valvular stenosis. * Small PFO by color doppler interrogation * Compared to prior study, there is no significant change. LUE PAIN/ SWELLING S/p mechanical fall 2 days ago No acute fracture on x-ray L shoulder or L forearm, ultrasound negative for DVT continue home pain medications elevate arm CHRONIC SYSTOLIC CHF EF 45% on 02/2014 echo Repeat Echo showed EF btw 55 to 60% -- euvolemic PAROXYSMAL ATRIAL FIBRILLATION rate controlled Continue amiodarone and metoprolol ANEMIA Hbg 11 at baseline, was in 7's approx 2 weeks ago per family- Hbg 8 Continue PO iron supplement Monitor CBC CKD STAGE III Creatinine is at baseline Stable DM TYPE 2 Diet controlled in past Hba1c 7.1 on 12/21 Novolog sliding scale coverage -- Pharmacy Glycemic Control consult DVT PROPHYLAXIS SCD's due to hemoptysis, anemia CODE STATUS DNR/DNI DISPOSITION Continue to monitor in telemetry Follows with Dr. Tyler for primary care Current Inpatient Medications: Current Inpatient Medications Medications (Trade) Dose Ordered Sig/Bruno Route Start Time Stop Time Status Last Admin Dose Admin Acetaminophen (Tylenol Tab) 650 mg Q4H PRN PO 12/25/16 17:00 01/24/17 16:59 Ondansetron HCl (Zofran Inj) 4 mg Q6H PRN IV 12/25/16 17:00 01/24/17 16:59 Nitroglycerin (Nitrostat Tab) 0.4 mg UD PRN SL 12/25/16 17:00 01/24/17 16:59 Glucose (Glucose 40% Gel) 15-30 GRAMS 15 GRAMS... UD PRN PO 12/25/16 17:15 01/24/17 17:14 Glucose (Glucose Chew Tab) 4-8 Tablets 4 Tabl... UD PRN PO 12/25/16 17:15 01/24/17 17:14 Dextrose (Dextrose 50% 50ML Syringe) 25-50ML OF 50% DW IV FOR... UD PRN IV 12/25/16 17:15 01/24/17 17:14 12/28/16 04:05 25 ML Glucagon (Glucagon Inj) 1 mg UD PRN SQ 12/25/16 17:15 01/24/17 17:14 Vancomycin HCl (Consult) 1 ea UD PRN N/A 12/25/16 17:30 01/24/17 17:29 Piperacillin Sod/ Tazobactam Sod (Consult) 1 ea UD PRN N/A 12/25/16 17:30 01/24/17 17:29 Amiodarone HCl (Cordarone Tab) 100 mg DAILY PO 12/26/16 09:00 01/25/17 08:59 12/28/16 08:21 100 MG Ascorbic Acid (Vitamin C Tab) 500 mg DAILY PO 12/26/16 09:00 01/25/17 08:59 12/28/16 08:22 500 MG Cholecalciferol (Vitamin D Tab) 1,000 inter.unit QAM PO 12/26/16 09:00 01/25/17 08:59 12/28/16 08:22 1,000 INTER.UNIT Codeine Phosphate/ Guaifenesin (Robitussin-AC Sugar Free Syrup) 5 ml Q4 PRN PO 12/25/16 17:45 01/24/17 17:44 12/25/16 22:10 5 ML Metoprolol Succinate (Toprol Xl Tab) 12.5 mg DAILY@1200 PO 12/26/16 12:00 01/25/17 11:59 12/27/16 12:45 12.5 MG Oxycodone/ Acetaminophen (Percocet 5-325mg Tab) 0.5 tab Q4H PRN PO 12/25/16 17:45 01/08/17 17:44 12/27/16 21:19 0.5 TAB Pantoprazole Sodium (Protonix Tab) 40 mg DAILY@1200 PO 12/26/16 12:00 01/25/17 11:59 12/27/16 08:24 40 MG Ranitidine HCl (zANTac TAB) 150 mg BID PO 12/25/16 21:00 01/24/17 20:59 12/28/16 08:22 150 MG Trazodone HCl (Desyrel Tab) 25 mg QDD PO 12/25/16 18:00 01/24/17 17:59 12/27/16 17:05 25 MG Trazodone HCl (Desyrel Tab) 50 mg HS PO 12/25/16 21:00 01/24/17 20:59 12/27/16 21:18 50 MG Multivitamins/ Minerals (Multivitamin W/ Minerals Tab) 1 tab DAILY PO 12/26/16 09:00 01/25/17 08:59 12/28/16 08:21 1 TAB Albuterol/ Ipratropium (Duoneb) 3 ml QIDR INH 12/25/16 20:00 01/24/17 19:59 12/28/16 08:06 3 ML Albuterol/ Ipratropium (Duoneb) 3 ml Q2H PRN INH 12/25/16 18:30 01/24/17 18:29 Piperacillin Sod/ Tazobactam Sod 3.375 gm/Dextrose 115 ml @ 28.75 mls/ hr Q8H IV 12/26/16 00:00 01/02/17 00:00 12/28/16 08:11 28.75 MLS/HR Mupirocin (Bactroban 2% Oint) 1 appln BID EXT 12/26/16 09:00 01/25/17 08:59 12/28/16 08:21 1 APPLN Vancomycin HCl 750 mg/Sodium Chloride 265 ml @ 125 mls/hr Q24H IV 12/26/16 22:00 01/01/17 21:59 12/27/16 21:27 125 MLS/HR Prednisone (PredniSONE TAB) 30 mg DAILY PO 12/28/16 09:00 01/27/17 08:59 12/28/16 08:22 30 MG Miscellaneous Information (Consult Glycemic Management Pharmacy) 1 ea UD PRN N/A 12/27/16 11:25 01/26/17 11:24 Insulin Glargine (Lantus Solostar Pen) 10 units BID SC 12/27/16 12:30 01/26/17 12:29 12/28/16 08:11 10 UNITS Insulin Aspart (novoLOG ASPART) SLIDING SCALE ACHS SC 12/28/16 07:00 01/27/17 06:59 12/28/16 08:10 2 UNITS
[2016-12-28 10:11] LABS: BASO % 0.1 %; BASO ABS # 0.01 K/uL (0-0.2); EOS % 0.1 %; HEMATOCRIT 25.7 % (42-52); IG% 0.3 %; LYMPH ABS # 0.77 K/uL (1.2-3.4); MEAN CELL VOLUME 92.4 fL (80-100); MEAN CORPUSCULAR HEMOGLOBIN 30.2 pg (25-34); MEAN CORPUSCULAR HGB CONC 32.7 g/dl (32-36); MEAN PLATELET VOLUME 8.3 fL (7.4-10.4); MONO % 5.7 %; NEUT % 89.8 %; PLATELET COUNT 213 K/uL (130-400); RED BLOOD COUNT 2.78 M/uL (4.7-6.1); WHITE BLOOD COUNT 19.19 K/uL (4.8-10.8)
[2016-12-28 10:42] LABS: COMPLETE YES; POIKILOCYTOSIS PRESENT
[2016-12-28 10:43] LABS: BUN/CREATININE RATIO 21.2 (10-20); CALCIUM 8.5 mg/dl (8.5-10.1); CREATININE 1.8 mg/dl (0.60-1.40); POTASSIUM 4.5 mmol/L (3.5-5.1)
--- NOTE | 2016-12-28 12:54 | DIAGNOSTIC IMAGING REPORT ---
(CHEST) THORAX WITHOUT CT DOSE: 298.60 mGycm HISTORY: lung mass, possible pneumonia TECHNIQUE: Multiaxial CT images of the chest were performed without contrast. A dose lowering technique was utilized adhering to the principles of ALARA. COMPARISON: Chest CT 04/07/2014. FINDINGS: The spiculated right upper lobe mass is increased in size and measures 5.8 x 4.2 cm. Emphysema. No pneumothorax. There is a new spiculated mass within the left lung apex which measures 2.8 cm. This likely represents metastatic disease. Patchy densities within the lung bases posteriorly. This is nonspecific and could represent atelectasis or pneumonia. Small amount of mucoid material within the trachea at the level of the flaco. Small left pleural effusion. Large cavitary soft tissue mass centered at the left anterior first costosternal junction. This soft tissue mass results in destruction of the medial aspect of the clavicle, left side of the manubrium/proximal sternum, left anterior first rib, and left anterior second rib. This invades into the anterior aspect of the superior mediastinum. This abuts the ascending thoracic aorta. This mass measures approximately 9 x 6 cm in size. This invades into the left anterior chest wall. Mild mediastinal lymphadenopathy. The heart is mildly enlarged. Elevation of the left hemidiaphragm. IMPRESSION: 1. Increase in size in the spiculated right upper lobe mass consistent with a primary bronchogenic malignancy. 2. There is a new spiculated mass within the left lung apex consistent with a metastatic deposit. 3. Large destructive cavitary mass within the left anterior chest wall centered at the first costosternal junction. This is consistent with a metastatic lesion. This results in destruction of the medial aspect of the clavicle, manubrium/sternum, left anterior first rib, and left anterior second rib. 4. Mild mediastinal lymphadenopathy. 5. Small left pleural effusion. Electronically signed by: Tae Davison M.D. 12/28/2016 12:53 PM Dictated Date/Time: 12/28/2016 12:42 PM
[2016-12-28] MEDS: METOPROLOL SUCC 25MG EXT REL TAB PO SCH (13:07)
[2016-12-28] MEDS: PANTOprazole SOD 40 MG TAB PO SCH (13:08)
--- NOTE | 2016-12-28 14:39 | Pharmacy Progress Note ---
Glycemic Control Progress Note Date of Service Dec 28, 2016. Scope Glycemic Pharmacist consulted for glycemic control to write orders per [facility] inpatient glycemic control protocol. Objective Accuchecks BSG (last 24hrs): Test 12/27/16 15:18 12/27/16 16:27 12/27/16 17:29 12/27/16 18:36 Bedside Glucose 314 mg/dl (70-99) 366 mg/dl (70-99) 326 mg/dl (70-99) 302 mg/dl (70-99) Test 12/27/16 19:18 12/27/16 20:28 12/27/16 21:33 12/27/16 22:18 Bedside Glucose 245 mg/dl (70-99) 192 mg/dl (70-99) 159 mg/dl (70-99) 140 mg/dl (70-99) Test 12/27/16 23:19 12/27/16 23:32 12/27/16 23:58 12/28/16 01:01 Bedside Glucose 98 mg/dl (70-99) 93 mg/dl (70-99) 86 mg/dl (70-99) 131 mg/dl (70-99) Test 12/28/16 01:58 12/28/16 03:05 12/28/16 03:55 12/28/16 04:22 Bedside Glucose 119 mg/dl (70-99) 94 mg/dl (70-99) 79 mg/dl (70-99) 138 mg/dl (70-99) Test 12/28/16 05:23 12/28/16 06:27 12/28/16 07:26 12/28/16 09:59 Bedside Glucose 119 mg/dl (70-99) 90 mg/dl (70-99) 94 mg/dl (70-99) Random Glucose 132 mg/dl (70-99) Test 12/28/16 11:40 Bedside Glucose 164 mg/dl (70-99) HbA1c: Test 12/26/16 05:38 Hemoglobin A1c 7.1 % (4.5-5.6) H Recent Pertinent Medications The patient is currently receiving: * Basal insulin: Lantus 10 units every 12 hours * Correctional Insulin: Novolog Correction per scale ACHS Goal Range: Low 110 mg/dL - High 140 mg/dL Correction Factor: 30 mg/dL/unit * Prandial insulin: Per carb ratio of 1 unit per 10 grams CHO consumed * Oral Agents: None currently Outpatient Anti-Diabetic Meds N/A Assessment & Plan ASSESSMENT: 12/28/16: * Insulin drip initiated yesterday for significant steroid induced hyperglycemia. Glycemic control improved quickly with goal BSGs obtained by bedtime. * Drip continued overnight and was transitioned off by me this AM due to low infusion rates and BSGs in the 90's * Lantus was given with the insulin drip to allow for smooth transition to SQ this AM. I plan to continue the current Lantus dose for another 24 hrs. The current basal insulin dose is consistent w/ a moderate stress level. Will add a scale to the Lantus order to lessen risk of hypoglycemia. * Novolog CF and CR were based upon pt wt and moderate/severe stress level. * Patient may not be as insulin resistant today as he received a lesser dose of Prednisone (only 30mg today vs 80mg yesterday) PLAN FOR INPATIENT GLYCEMIC CONTROL: * Continuing Lantus SQ BID: * BSG less than 140mg/dL: give 5 units * BSG 140mg/dL or greater: give 10 units * Correction factor 30 mg/dl/unit * Carb ratio 1 unit per 10 grams CHO consumed * Goal range Low 110 mg/dL - High 140 mg/dL * Please note that the plan above was derived based on current level of insulin resistance and hospital stress. These recommendations are appropriate for inpatient admission only. Plan of care upon discharge will need to be reassessed to avoid potential outpatient hypo/hyperglycemia. Thank you.
--- NOTE | 2016-12-28 14:39 | Progress Note ---
Subjective Date of Service: Dec 28, 2016. Subjective Pt evaluation today including: conversation w/ patient, conversation w/ family , physical exam, chart review, lab review pt seen in followup, family at bedside, sleeping on exam but awoke. no pain, no f/c. tolerating abx. still with cough but improving. wbc nml. blood cultures negative, sputum with nml alex, but not yet final. ct chest noted. all remaining ros reviewed and are negative. Problem List Medical Problems: (1) Acute urinary retention Status: Acute (2) COPD (chronic obstructive pulmonary disease) Status: Acute (3) Hematuria Status: Acute (4) Hemoptysis Status: Acute (5) Hypoxia Status: Acute (6) Shortness of breath Status: Acute Objective Vital Signs Date Time Temp Pulse Resp B/P (MAP) Pulse Ox O2 Delivery O2 Flow Rate FiO2 12/28/16 13:07 36.3 82 16 135/69 (91) 95 Room Air 12/28/16 11:12 72 18 95 Room Air 12/28/16 08:13 74 18 96 Room Air 12/28/16 08:00 Nasal Cannula 3.0 12/28/16 07:51 36.9 75 20 105/47 (66) 92 Room Air 12/28/16 04:10 Nasal Cannula 3.0 12/28/16 03:55 36.5 71 18 100/49 (66) 99 Nasal Cannula 2.0 12/28/16 00:00 36.8 73 18 95/46 (62) 94 Room Air 12/28/16 00:00 Nasal Cannula 3.0 12/27/16 20:00 99 Nasal Cannula 3.0 12/27/16 19:56 71 18 97 Room Air 12/27/16 19:36 36.6 73 16 96/49 (65) 95 Room Air 12/27/16 16:00 99 Nasal Cannula 3.0 12/27/16 15:42 36.4 77 16 104/47 (66) 94 Room Air 12/27/16 15:42 70 18 93 Room Air Physical Exam General Appearance: WD/WN, no apparent distress Eyes: normal inspection, EOMI Neck: supple Respiratory/Chest: lungs clear, normal breath sounds, no respiratory distress, + decreased breath sounds Cardiovascular: regular rate, rhythm, no edema Abdomen: soft Extremities: non-tender, no pedal edema Neurologic/Psychiatric: alert, oriented x 3 Skin: normal color Laboratory Results Item Value Date Time Blood Culture - Preliminary Resulted 12/25/16 1350 Blood NO GROWTH TO DATE. Gram Stain - Final Resulted 12/27/16 0827 Sputum Expectorated Sputum Gram Stain - Final Resulted 12/27/16 0827 Sputum Expectorated Sputum Blood Culture - Preliminary Resulted 12/25/16 1404 Blood NO GROWTH TO DATE. Urine Culture - Preliminary Resulted 12/27/16 1700 Urine , Clean Catch NO GROWTH - LESS THAN 1,000 COLONIES/... Last 24 Hours Test 12/27/16 15:18 12/27/16 16:27 12/27/16 17:29 12/27/16 18:36 Bedside Glucose 314 mg/dl 366 mg/dl 326 mg/dl 302 mg/dl Test 12/27/16 19:18 12/27/16 20:28 12/27/16 21:33 12/27/16 22:18 Bedside Glucose 245 mg/dl 192 mg/dl 159 mg/dl 140 mg/dl Test 12/27/16 23:19 12/27/16 23:32 12/27/16 23:58 12/28/16 01:01 Bedside Glucose 98 mg/dl 93 mg/dl 86 mg/dl 131 mg/dl Test 12/28/16 01:58 12/28/16 03:05 12/28/16 03:55 12/28/16 04:22 Bedside Glucose 119 mg/dl 94 mg/dl 79 mg/dl 138 mg/dl Test 12/28/16 05:23 12/28/16 06:12 12/28/16 06:27 12/28/16 07:26 Bedside Glucose 119 mg/dl 90 mg/dl 94 mg/dl Creatinine 1.70 mg/dl Est Creatinine Clear Calc Drug Dose 24.9 ml/min Estimated GFR () 40.8 Estimated GFR (Non- 35.2 Test 12/28/16 09:59 12/28/16 11:40 White Blood Count 19.19 K/uL Red Blood Count 2.78 M/uL Hemoglobin 8.4 g/dL Hematocrit 25.7 % Mean Corpuscular Volume 92.4 fL Mean Corpuscular Hemoglobin 30.2 pg Mean Corpuscular Hemoglobin Concent 32.7 g/dl Platelet Count 213 K/uL Mean Platelet Volume 8.3 fL Neutrophils (%) (Auto) 89.8 % Lymphocytes (%) (Auto) 4.0 % Monocytes (%) (Auto) 5.7 % Eosinophils (%) (Auto) 0.1 % Basophils (%) (Auto) 0.1 % Neutrophils # (Auto) 17.25 K/uL Lymphocytes # (Auto) 0.77 K/uL Monocytes # (Auto) 1.10 K/uL Eosinophils # (Auto) 0.01 K/uL Basophils # (Auto) 0.01 K/uL RDW Standard Deviation 47.8 fL RDW Coefficient of Variation 14.1 % Immature Granulocyte % (Auto) 0.3 % Immature Granulocyte # (Auto) 0.05 K/uL Poikilocytosis PRESENT Sodium Level 136 mmol/L Potassium Level 4.5 mmol/L Chloride Level 101 mmol/L Carbon Dioxide Level 29 mmol/L Anion Gap 6.0 mmol/L Blood Urea Nitrogen 38 mg/dl Creatinine 1.80 mg/dl Est Creatinine Clear Calc Drug Dose 23.5 ml/min Estimated GFR () 38.1 Estimated GFR (Non- 32.9 BUN/Creatinine Ratio 21.2 Random Glucose 132 mg/dl Calcium Level 8.5 mg/dl Bedside Glucose 164 mg/dl Assessment and Plan (1) PNA (pneumonia) Assessment & Plan: continue Iv abx for now, if sputum culture negative would transition to po zyvox 600mg po bid to complete 10 days.
--- NOTE | 2016-12-28 16:14 | Urology Consultation ---
History General Date of Service: Dec 28, 2016. Chief Complaint: dysuria, hematuria Primary Care Physician: Ling Tyler M.D. Pt seen a urologist before?: Yes (Dr. Suárez, Dr. Yao) If yes, why?: bladder cancer History of Present Illness 86 yo male with suspected lung cancer and high-grade urothelial carcinoma of the bladder; untreated. Pt admitted for pneumonia. consulted for dysuria and gross hematuria. Per the pt this afternoon, urine is pretty clear. He primary c/o bothersome dysuria causing penile pain. He reports his PCP gave him 10 days of Pyridium for the pain, which was not as helpful as soda water and cranberry juice. He admits to not drinking a lot of fluids. UC&S is preliminarily negative. Cr noted to be 1.8 today. Laboratory Last 24 Hours Test 12/27/16 16:27 12/27/16 17:29 12/27/16 18:36 12/27/16 19:18 Bedside Glucose 366 mg/dl 326 mg/dl 302 mg/dl 245 mg/dl Test 12/27/16 20:28 12/27/16 21:33 12/27/16 22:18 12/27/16 23:19 Bedside Glucose 192 mg/dl 159 mg/dl 140 mg/dl 98 mg/dl Test 12/27/16 23:32 12/27/16 23:58 12/28/16 01:01 12/28/16 01:58 Bedside Glucose 93 mg/dl 86 mg/dl 131 mg/dl 119 mg/dl Test 12/28/16 03:05 12/28/16 03:55 12/28/16 04:22 12/28/16 05:23 Bedside Glucose 94 mg/dl 79 mg/dl 138 mg/dl 119 mg/dl Test 12/28/16 06:12 12/28/16 06:27 12/28/16 07:26 12/28/16 09:59 Creatinine 1.70 mg/dl 1.80 mg/dl Est Creatinine Clear Calc Drug Dose 24.9 ml/min 23.5 ml/min Estimated GFR () 40.8 38.1 Estimated GFR (Non- 35.2 32.9 Bedside Glucose 90 mg/dl 94 mg/dl White Blood Count 19.19 K/uL Red Blood Count 2.78 M/uL Hemoglobin 8.4 g/dL Hematocrit 25.7 % Mean Corpuscular Volume 92.4 fL Mean Corpuscular Hemoglobin 30.2 pg Mean Corpuscular Hemoglobin Concent 32.7 g/dl Platelet Count 213 K/uL Mean Platelet Volume 8.3 fL Neutrophils (%) (Auto) 89.8 % Lymphocytes (%) (Auto) 4.0 % Monocytes (%) (Auto) 5.7 % Eosinophils (%) (Auto) 0.1 % Basophils (%) (Auto) 0.1 % Neutrophils # (Auto) 17.25 K/uL Lymphocytes # (Auto) 0.77 K/uL Monocytes # (Auto) 1.10 K/uL Eosinophils # (Auto) 0.01 K/uL Basophils # (Auto) 0.01 K/uL RDW Standard Deviation 47.8 fL RDW Coefficient of Variation 14.1 % Immature Granulocyte % (Auto) 0.3 % Immature Granulocyte # (Auto) 0.05 K/uL Poikilocytosis PRESENT Sodium Level 136 mmol/L Potassium Level 4.5 mmol/L Chloride Level 101 mmol/L Carbon Dioxide Level 29 mmol/L Anion Gap 6.0 mmol/L Blood Urea Nitrogen 38 mg/dl BUN/Creatinine Ratio 21.2 Random Glucose 132 mg/dl Calcium Level 8.5 mg/dl Test 12/28/16 11:40 Bedside Glucose 164 mg/dl Problem List Medical Problems: (1) Acute urinary retention Status: Acute (2) COPD (chronic obstructive pulmonary disease) Status: Acute (3) Hematuria Status: Acute (4) Hemoptysis Status: Acute (5) Hypoxia Status: Acute (6) Shortness of breath Status: Acute Past History BPH, cancer (bladder ), cancer - lung, congestive heart failure, COPD, coronary artery disease, diabetes, high cholesterol, hypertension, myocardial infarction , other (anemia, chronic respiratory failure with hypoxia, CKD stage III) Past Surgical History: angioplasty with stent (coronary artery), bowel resection, coronary bypass surgery (x 4 ), orthopedic surgery (knee surgery, carpal tunnel), other (carotid endartarectomy) Family History Noncontributory due to advanced age Social History Hx Tobacco Use In Past Year?: No Smoking: quit greater than 1 year (quit 3 years ago, prior 1 ppd x 75 years) Alcohol: never Marital status: Occupation status: retired Immunizations History of Influenza Vaccine: Unknown History of Tetanus Vaccine?: Unknown History of Pneumococcal: Unknown History of Hepatitis B Vaccine: Unknown History of MDRO Yes Type of MDRO: MRSA Allergies Coded Allergies: Adhesives (Verified Allergy, Intermediate, RASH, 12/25/16) Medications Home Medications: Home Meds and Scripts Medications Dose Route/Sig Max Daily Dose Days Date Category Dose Instructions Daily Vitamin Formula+Ir (Multiple Vitamins W/ Iron) 1 Tab Tab 1 Tab PO DAILY 12/25/16 Reported Percocet 5MG/325MG (Oxycodone/Acetaminophen) Tab 0.5 Tablet PO Q4H PRN 12/25/16 Reported Keflex (Cephalexin Monohydrate) 500 Mg Cap 500 Mg PO TID 12/25/16 Reported Trazodone (Trazodone HCl) 50 Mg Tab 25 Mg PO QDD 12/25/16 Reported Ascorbic Acid 500 Mg Tab 500 Mg PO DAILY 12/25/16 Reported Codeine/Guaifenesin 100-10 mg/5Ml (Guaifenesin-Codeine) 1 Skylar Skylar 5-10 Ml PO Q4 PRN 01/18/16 Reported Toprol-Xl (Metoprolol Succinate) 25 Mg Tabcr 12.5 Mg PO DAILYBL 07/26/15 Reported 12.5 mg by mouth daily at noon [Alteril] 2 Tabs PO HS 07/26/15 Reported Duoneb (Ipratropium-Albuterol) 3 Ml Nebu 1 Treatment INH QID 07/26/15 Reported Zantac (Ranitidine HCl) 150 Mg Tab 150 Mg PO BID 07/26/15 Reported Protonix (Pantoprazole Sodium) 40 Mg Tab 40 Mg PO NOON 07/26/15 Reported Trazodone (Trazodone HCl) 50 Mg Tab 50 Mg PO HS 07/26/15 Reported Oxygen Gas 3.5 Liter NA HS 04/24/14 Reported 3.5 lpm via nasal cannula at bedtime and 4 lpm with exertion Pacerone (Amiodarone Hcl) 200 Mg Tab 100 Mg PO DAILY 04/06/14 Reported Vitamin D3 (Cholecalciferol) 1,000 Unit Tab 1,000 Units PO QAM 01/12/14 Reported Nitrostat (Nitroglycerin) 0.4 Mg Tab 0.4 Mg UT PRN 05/26/10 Reported Inpatient Medications: Current Inpatient Medications Medications (Trade) Dose Ordered Sig/Bruno Route Start Time Stop Time Status Last Admin Dose Admin Acetaminophen (Tylenol Tab) 650 mg Q4H PRN PO 12/25/16 17:00 01/24/17 16:59 Ondansetron HCl (Zofran Inj) 4 mg Q6H PRN IV 12/25/16 17:00 01/24/17 16:59 Nitroglycerin (Nitrostat Tab) 0.4 mg UD PRN SL 12/25/16 17:00 01/24/17 16:59 Glucose (Glucose 40% Gel) 15-30 GRAMS 15 GRAMS... UD PRN PO 12/25/16 17:15 01/24/17 17:14 Glucose (Glucose Chew Tab) 4-8 Tablets 4 Tabl... UD PRN PO 12/25/16 17:15 01/24/17 17:14 Dextrose (Dextrose 50% 50ML Syringe) 25-50ML OF 50% DW IV FOR... UD PRN IV 12/25/16 17:15 01/24/17 17:14 12/28/16 04:05 25 ML Glucagon (Glucagon Inj) 1 mg UD PRN SQ 12/25/16 17:15 01/24/17 17:14 Vancomycin HCl (Consult) 1 ea UD PRN N/A 12/25/16 17:30 01/24/17 17:29 Piperacillin Sod/ Tazobactam Sod (Consult) 1 ea UD PRN N/A 12/25/16 17:30 01/24/17 17:29 Amiodarone HCl (Cordarone Tab) 100 mg DAILY PO 12/26/16 09:00 01/25/17 08:59 12/28/16 08:21 100 MG Ascorbic Acid (Vitamin C Tab) 500 mg DAILY PO 12/26/16 09:00 01/25/17 08:59 12/28/16 08:22 500 MG Cholecalciferol (Vitamin D Tab) 1,000 inter.unit QAM PO 12/26/16 09:00 01/25/17 08:59 12/28/16 08:22 1,000 INTER.UNIT Codeine Phosphate/ Guaifenesin (Robitussin-AC Sugar Free Syrup) 5 ml Q4 PRN PO 12/25/16 17:45 01/24/17 17:44 12/25/16 22:10 5 ML Metoprolol Succinate (Toprol Xl Tab) 12.5 mg DAILY@1200 PO 12/26/16 12:00 01/25/17 11:59 12/28/16 13:07 12.5 MG Oxycodone/ Acetaminophen (Percocet 5-325mg Tab) 0.5 tab Q4H PRN PO 12/25/16 17:45 01/08/17 17:44 12/27/16 21:19 0.5 TAB Pantoprazole Sodium (Protonix Tab) 40 mg DAILY@1200 PO 12/26/16 12:00 01/25/17 11:59 12/28/16 13:08 40 MG Ranitidine HCl (zANTac TAB) 150 mg BID PO 12/25/16 21:00 01/24/17 20:59 12/28/16 08:22 150 MG Trazodone HCl (Desyrel Tab) 25 mg QDD PO 12/25/16 18:00 01/24/17 17:59 12/27/16 17:05 25 MG Trazodone HCl (Desyrel Tab) 50 mg HS PO 12/25/16 21:00 01/24/17 20:59 12/27/16 21:18 50 MG Multivitamins/ Minerals (Multivitamin W/ Minerals Tab) 1 tab DAILY PO 12/26/16 09:00 01/25/17 08:59 12/28/16 08:21 1 TAB Albuterol/ Ipratropium (Duoneb) 3 ml QIDR INH 12/25/16 20:00 01/24/17 19:59 12/28/16 11:19 3 ML Albuterol/ Ipratropium (Duoneb) 3 ml Q2H PRN INH 12/25/16 18:30 01/24/17 18:29 Piperacillin Sod/ Tazobactam Sod 3.375 gm/Dextrose 115 ml @ 28.75 mls/ hr Q8H IV 12/26/16 00:00 01/02/17 00:00 12/28/16 08:11 28.75 MLS/HR Mupirocin (Bactroban 2% Oint) 1 appln BID EXT 12/26/16 09:00 01/25/17 08:59 12/28/16 08:21 1 APPLN Vancomycin HCl 750 mg/Sodium Chloride 265 ml @ 125 mls/hr Q24H IV 12/26/16 22:00 01/01/17 21:59 12/27/16 21:27 125 MLS/HR Prednisone (PredniSONE TAB) 30 mg DAILY PO 12/28/16 09:00 01/27/17 08:59 12/28/16 08:22 30 MG Miscellaneous Information (Consult Glycemic Management Pharmacy) 1 ea UD PRN N/A 12/27/16 11:25 01/26/17 11:24 Insulin Aspart (novoLOG ASPART) SLIDING SCALE ACHS SC 12/28/16 07:00 01/27/17 06:59 12/28/16 11:47 4 UNITS Insulin Glargine (Lantus Solostar Pen) See Protocol Text BID SC 12/28/16 21:00 01/26/17 12:29 Review of Systems Review of Systems Constitutional: No fever, No chills Eyes: No double vision Neurological: No dizzy Endocrine: No excessive thirst Gastrointestinal: No abdominal pain, No nausea, No vomiting Cardiovascular: No chest pain Respiratory: No shortness of breath Skin: No rash Musculoskeletal: + neck pain, + arthritis Male : + painful urination, + blood in urine Physical Exam Vital Signs: Vital Signs Past 12 Hours Date Time Temp Pulse Resp B/P (MAP) Pulse Ox O2 Delivery O2 Flow Rate FiO2 12/28/16 13:07 36.3 82 16 135/69 (91) 95 Room Air 12/28/16 12:00 Room Air 12/28/16 11:12 72 18 95 Room Air 12/28/16 08:13 74 18 96 Room Air 12/28/16 08:00 Room Air 12/28/16 07:51 36.9 75 20 105/47 (66) 92 Room Air 12/28/16 04:10 Nasal Cannula 3.0 Physical Exam: General Appearance: no apparent distress Eyes: bilateral eyes normal inspection ENT: hearing grossly normal Neck: no JVD Respiratory/Chest: no respiratory distress, no accessory muscle use Cardiovascular: no JVD Extremities: normal inspection Neurologic/Psychiatric: alert, normal mood/affect, oriented x 3 Skin: normal color Assessment & Plan Assessment & Plan A/P: dysuria, gross hematuria, bladder cancer AFVSS. UC&S preliminarily negative. Will continue to avoid invasive management of the pt's bladder cancer. Hematuria minimal. Not uncommon in the setting of bladder cancer. Stable H&H of 8.4 and 25.7. Observe for now. Avoid arriaza placement unless the pt is unable to void or develops worsening hematuria with clots. Supportive management with transfusions PRN. As for his dysuria, Pyridium previously not effective. Encourage fluids as this has been helpful for him in the past. Will try adding Ditropan to his regimen to see if helpful. Thanks for the consult. Will continue to follow along with primary service.
[2016-12-28] MEDS: TRAZODONE HCL 50 MG TAB PO SCH ×2 (16:39→22:34)
[2016-12-28] MEDS: ACETAMINOPHEN 325 MG TAB PO PRN (16:41)
[2016-12-28] MEDS ORDERED: VANCOMYCIN TROUGH ONE ×2 (17:30→21:30)
[2016-12-28] MEDS: OXYBUTYNIN CHLORIDE 5 MG TAB PO SCH (20:12)
[2016-12-28] MEDS ORDERED: INSULIN REGULAR 6 UNITS in SYRINGE 5.94 ML IV ONE (20:45)
[2016-12-28] MEDS ORDERED: INSULIN GLARGINE SOLOSTAR 100 UNITS/ML 3 ML PEN SC SCH (21:00)
[2016-12-28] MEDS: VANCOMYCIN INJ 750 MG in SODIUM CHLORIDE 0.9% 250ML 250 ML IV SCH (22:33)
[2016-12-28] MEDS: OXYCODONE/ACETAMINOPHEN 5-325 TAB PO PRN (22:33)
[2016-12-29] VITALS (10 sets, daily range): BP systolic 92–126; BP diastolic 48–73; PULSE 66–89; TEMP 36.6–36.9; O2SAT 93–98
[2016-12-29] MEDS: INSULIN ASPART 100 UNITS/ML 3 ML PEN SC SCH ×6 (00:09→20:58)
[2016-12-29] MEDS: ALBUT/IPRATROP 3MG/0.5MG NEB 3 ML VIAL INH SCH ×4 (07:09→19:05)
[2016-12-29] MEDS: INSULIN GLARGINE SOLOSTAR 100 UNITS/ML 3 ML PEN SC SCH ×2 (07:54→20:58)
[2016-12-29] MEDS: ASCORBIC ACID 500 MG TAB PO SCH (08:48)
[2016-12-29] MEDS: CHOLECALCIFEROL 1000 INTER.UNIT TAB PO SCH (08:48)
[2016-12-29] MEDS: OXYBUTYNIN CHLORIDE 5 MG TAB PO SCH ×2 (08:48→20:54)
[2016-12-29] MEDS: MUPIROCIN 2% OINT 22 GM TUBE EXT SCH ×2 (08:48→20:53)
[2016-12-29] MEDS: PIPERACILL/TAZOBAC IV 3.375 GM in DEXTROSE 5% 100ML IV SCH (08:48)
[2016-12-29] MEDS: AMIODARONE 200 MG TAB PO SCH (08:49)
[2016-12-29] MEDS: CEROVITE ADV FORMULA TAB PO SCH (08:49)
[2016-12-29] MEDS: RANITIDINE HCL 150 MG TAB PO SCH ×2 (08:50→20:54)
[2016-12-29] MEDS: OXYCODONE/ACETAMINOPHEN 5-325 TAB PO PRN ×2 (09:56→20:53)
--- NOTE | 2016-12-29 10:42 | Progress Note ---
Subjective Date of Service: Dec 29, 2016. Subjective Pt evaluation today including: conversation w/ patient, conversation w/ family , physical exam, chart review, lab review pt seen in followup, OOB to chair, family at bedside. ate breakfast, states he is feeling better. urology eval yesterday. no dysuria this am. cough better, no productive sputum, sputum culture with nml alex only, h/o MRSA in november. Afebrile. wbc increased today. no cp, no sob, on RA. no n/v/d/abd pain, tolerating abx. all remaining ros reviewed and are negative. Problem List Medical Problems: (1) Acute urinary retention Status: Acute (2) COPD (chronic obstructive pulmonary disease) Status: Acute (3) Hematuria Status: Acute (4) Hemoptysis Status: Acute (5) Hypoxia Status: Acute (6) Shortness of breath Status: Acute Objective Vital Signs Date Time Temp Pulse Resp B/P (MAP) Pulse Ox O2 Delivery O2 Flow Rate FiO2 12/29/16 07:47 36.7 86 20 125/54 (77) 94 12/29/16 07:12 66 16 96 Room Air 12/29/16 04:00 36.6 74 18 92/48 (63) 97 Nasal Cannula 2.0 12/29/16 04:00 Nasal Cannula 2.0 12/29/16 00:13 Nasal Cannula 2.0 12/29/16 00:00 36.6 77 20 95/49 (64) 98 Nasal Cannula 2.0 12/28/16 20:00 96 Room Air 12/28/16 19:50 36.7 78 16 98/52 (67) 93 Room Air 12/28/16 19:25 72 18 95 Room Air 12/28/16 16:10 36.5 79 16 119/62 (81) 94 Room Air 12/28/16 16:00 70 18 95 Room Air 12/28/16 16:00 95 Room Air 12/28/16 13:07 36.3 82 16 135/69 (91) 95 Room Air 12/28/16 12:00 Room Air 12/28/16 11:12 72 18 95 Room Air Physical Exam General Appearance: WD/WN, no apparent distress Eyes: normal inspection, EOMI Neck: supple Respiratory/Chest: normal breath sounds, no respiratory distress, + decreased breath sounds Cardiovascular: regular rate, rhythm, no edema Abdomen: non tender, soft Extremities: non-tender, normal inspection, no pedal edema Neurologic/Psychiatric: alert, oriented x 3 Skin: normal color, warm/dry, no rash Laboratory Results Item Value Date Time Gram Stain - Final Complete 12/27/16 0827 Sputum Expectorated Sputum Blood Culture - Preliminary Resulted 12/25/16 1404 Blood NO GROWTH TO DATE. Blood Culture - Preliminary Resulted 12/25/16 1350 Blood NO GROWTH TO DATE. Urine Culture - Preliminary Resulted 12/27/16 1700 Urine , Clean Catch NO GROWTH - LESS THAN 1,000 COLONIES/... Last 24 Hours Test 12/28/16 11:40 12/28/16 16:09 12/28/16 19:54 12/28/16 21:34 Bedside Glucose 164 mg/dl 285 mg/dl 373 mg/dl Vancomycin Level Trough 14.3 mcg/ml Test 12/28/16 23:57 12/29/16 04:00 12/29/16 06:47 12/29/16 07:46 Bedside Glucose 284 mg/dl 184 mg/dl 152 mg/dl 138 mg/dl Assessment and Plan (1) PNA (pneumonia) Assessment & Plan: would change to zyvox 600mg po bid x 7 days for h/o MRSA. current culture negative but was recently on abx. blood cultures negative to date. increased wbc likely multifactorial, doubt secondary to worsening pna. ok for d/c when otherwise stable.
--- NOTE | 2016-12-29 11:12 | Progress Note ---
Subjective Date of Service: Dec 29, 2016. (Mandie Cartagena CRNP) Subjective Pt evaluation today including: conversation w/ patient, conversation w/ family , chart review, lab review 86 year old male admitted for pneumonia. Possible malignancy Urology consulted for gross hematuria and dysuria. Have avoided arriaza placement and invasive management at this point. Urine is mostly clear- Unfortunately urinal is empty. Unable to assess personally. Does have some dysuria but has improved with oxybutynin. Prelim urine culture shows no growth. AFVSS. Son at bedside. Pt sitting up in chair. (Mandie Cartagena CRNP) pt chart reviewed He has hx of tcc but has not been cystoscoped for almost a year Pt recently has hematuria intermittently for about a month but did not seek attention He now complains of dysuria Spoke with outbound sales consultant and he has a lung mass with limited longevity in weeks and months per pt and outbound sales consultant No reported hematuria today (Wicho Londono M.D.) Problem List Medical Problems: (1) Acute urinary retention Status: Acute (2) COPD (chronic obstructive pulmonary disease) Status: Acute (3) Hematuria Status: Acute (4) Hemoptysis Status: Acute (5) Hypoxia Status: Acute (6) Shortness of breath Status: Acute (Mandie Cartagena CRNP) Review of Systems Constitutional: No fever, No chills Eyes: No worsening of vision ENT: No hearing loss Respiratory: No shortness of breath Cardiac: No chest pain Abdomen: No pain, No nausea Male : + dysuria, + urinary frequency Neurologic: No memory loss Heme: No abnormal bleeding/bruising (Mandie Cartagena CRNP) Objective Vital Signs Date Time Temp Pulse Resp B/P (MAP) Pulse Ox O2 Delivery O2 Flow Rate FiO2 12/29/16 07:47 36.7 86 20 125/54 (77) 94 12/29/16 07:12 66 16 96 Room Air 12/29/16 04:00 36.6 74 18 92/48 (63) 97 Nasal Cannula 2.0 12/29/16 04:00 Nasal Cannula 2.0 12/29/16 00:13 Nasal Cannula 2.0 12/29/16 00:00 36.6 77 20 95/49 (64) 98 Nasal Cannula 2.0 12/28/16 20:00 96 Room Air 12/28/16 19:50 36.7 78 16 98/52 (67) 93 Room Air 12/28/16 19:25 72 18 95 Room Air 12/28/16 16:10 36.5 79 16 119/62 (81) 94 Room Air 12/28/16 16:00 70 18 95 Room Air 12/28/16 16:00 95 Room Air 12/28/16 13:07 36.3 82 16 135/69 (91) 95 Room Air 12/28/16 12:00 Room Air 12/28/16 11:12 72 18 95 Room Air (Mandie Cartagena CRNP) Physical Exam General Appearance: WD/WN, no apparent distress ENT: hearing grossly normal Neck: no JVD Respiratory/Chest: no respiratory distress, no accessory muscle use Extremities: no calf tenderness Neurologic/Psychiatric: alert, normal mood/affect (Mandie Cartagena CRNP) Laboratory Results Last 24 Hours Test 12/28/16 11:40 12/28/16 16:09 12/28/16 19:54 12/28/16 21:34 Bedside Glucose 164 mg/dl 285 mg/dl 373 mg/dl Vancomycin Level Trough 14.3 mcg/ml Test 12/28/16 23:57 12/29/16 04:00 12/29/16 06:47 12/29/16 07:46 Bedside Glucose 284 mg/dl 184 mg/dl 152 mg/dl 138 mg/dl Test 12/29/16 10:51 (Mandie Cartagena CRNP) Assessment and Plan Hematuria and dysuria These have improved. Voiding on his own. Urine culture- prelim no growth. Continue oxybutynin for dysuria and urinary frequency. This has been helpful. Recommend to continue to avoid invasive management and arriaza placement. Possible bladder cancer- will discuss need for cystoscopy as outpt given his other neoplastic issues. (Mandie Cartagena CRNP) Check cytology bladder scan Pyridium for dysuria d/c oxybutinin 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 Recommend keeping him off blood thinners and trying to avoid intervention unless forced to for comfort (Wicho Londono M.D.)
--- NOTE | 2016-12-29 11:18 | Pharmacy Progress Note ---
Glycemic Control Progress Note Date of Service Dec 29, 2016. Scope Glycemic Pharmacist consulted for glycemic control to write orders per [facility] inpatient glycemic control protocol. Objective Accuchecks BSG (last 24hrs): Test 12/28/16 11:40 12/28/16 16:09 12/28/16 19:54 12/28/16 23:57 Bedside Glucose 164 mg/dl (70-99) 285 mg/dl (70-99) 373 mg/dl (70-99) 284 mg/dl (70-99) Test 12/29/16 04:00 12/29/16 06:47 12/29/16 07:46 12/29/16 10:59 Bedside Glucose 184 mg/dl (70-99) 152 mg/dl (70-99) 138 mg/dl (70-99) HbA1c: Test 12/26/16 05:38 Hemoglobin A1c 7.1 % (4.5-5.6) H Recent Pertinent Medications Outpatient Anti-diabetic Regimen: * N/A The patient is currently receiving: * Basal/bolus insulin Risk Factors for Insulin Resistance: * Steroids * Infection * Diet Assessment & Plan ASSESSMENT: * 86 yo M admitted for treatment of pneumonia, initiated on PO steroids which caused BSGs to climb * Pt was started on an insulin drip for BSGs in the 300's on 12/27/16 * Yesterday BSGs came down within goal range and he transitioned to basal/bolus regimen * Overnight BSGs went into the 300's again indicating that we were not aggressive enough with basal insulin when turning drip off * He received Regular Insulin 6 units IV X 1 * Basal insulin was increased and overnight coverage added * Fasting BSG this AM 138, Lunch BSG 104 * Continue more aggressive basal insulin with a half dose parameter if BSGs begin to drop * Continue current Novolog as steroids tapered to 20 mg starting tomorrow and loosen further if necessary * ADA & AACE recommend a goal blood sugar range 140-180 mg/dl for the majority of critically ill & non-critically ill patients. However, more stringent targets may be selected in individual cases. Tighten to 110-140 mg/dL to mirror home control. PLAN FOR INPATIENT GLYCEMIC CONTROL: * Basal insulin with LANTUS 14 units SQ BID * Give 7 if BSGs trending <120 mg/dL * Correctional Insulin with NOVOLOG per scale ACHS * Correction factor: 30 * Carb ratio: 10 * Goal range remains 110-140 mg/dL * Please note that the plan above was derived based on current level of insulin resistance and hospital stress. These recommendations are appropriate for inpatient admission only. Plan of care upon discharge will need to be reassessed to avoid potential outpatient hypo/hyperglycemia. Thank you.
--- NOTE | 2016-12-29 11:21 | Progress Note ---
Medicine Progress Note Date & Time of Visit: Dec 29, 2016 at 11:11. Subjective sitting in bedside chair, comfortable states he feels ok overall denies dyspnea, still has occasional productive cough, no hemoptysis Objective Last 8 Hrs Date Time Temp Pulse Resp B/P (MAP) Pulse Ox O2 Delivery O2 Flow Rate FiO2 12/29/16 07:47 36.7 86 20 125/54 (77) 94 12/29/16 07:12 66 16 96 Room Air 12/29/16 04:00 36.6 74 18 92/48 (63) 97 Nasal Cannula 2.0 12/29/16 04:00 Nasal Cannula 2.0 Physical Exam: General- oriented x 3, not in distress, speaks in sentences with no effort Eyes- anicteric Neck- no JVD Lungs- decreased breath sounds left base, clear on the right Heart- regular rhythm; no murmur, normal rate Abdomen- normal bowel sounds, soft, nontender Extremities- no pretibial edema, no calf tenderness left forearm/upper arm edema, no warmth/tenderness/swelling Neuro- alert, oriented x 3 no gross focal neuro deficits Skin- warm & dry Laboratory Results: Last 24 Hours Test 12/28/16 11:40 12/28/16 16:09 12/28/16 19:54 12/28/16 21:34 Bedside Glucose 164 mg/dl 285 mg/dl 373 mg/dl Vancomycin Level Trough 14.3 mcg/ml Test 12/28/16 23:57 12/29/16 04:00 12/29/16 06:47 12/29/16 07:46 Bedside Glucose 284 mg/dl 184 mg/dl 152 mg/dl 138 mg/dl Test 12/29/16 10:59 Assessment & Plan 86 year old male with history of COPD on O2 at , CAD, CHF, DM, Paroxysmal A fib presenting with shortness of breath. COMMUNITY ACQUIRED PNEUMONIA Presented with worsening SOB and cough Sputum cx on 11/09/16 grew MRSA- sensitive to bactrim, vanco, gentamin, rifampin Failed outpatient Abx treatment with Septra, Levaquin and Keflex CXR on admission showed left upper lobe opacity- favors pneumonia WBC now normalized off oxygen Blood cultures: negative Sputum culture: normal alex Urine culture: negative Day 4 Zosyn and vancomycin IV-->transitioned to Linezolid Prednisone taper Nebs q6h -- Speech Therapy consulted: * 1. Moist dental soft diet 2. Aspiration precautions: straws okay 3. 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 Yao -- Urology consulted Oxybutinin ordered LEFT ARM EDEMA -- from Left Pulmonary masses? S/p mechanical fall 2 days ago No acute fracture on x-ray L shoulder or L forearm, ultrasound negative for DVT continue home pain medications - will monitor MILD TROPONIN ELEVATION HX CAD S/P CABG X4 possible related to elevated creatine Initial POC troponin 0.100 Denies any chest pain cardiac marker trending down Continue beta luzmaria ECHO done showed * -- Conclusions -- * Ejection Fraction = 55-60%. * There is mild concentric left ventricular hypertrophy. * The base inferior and posterior wall are hypokinetic, otherwise, normal wall motion. * Grade I diastolic dysfunction, (abnormal relaxation pattern). * Aortic valve sclerosis moderate, without significant aortic valvular stenosis. * Small PFO by color doppler interrogation * Compared to prior study, there is no significant change. CHRONIC SYSTOLIC CHF EF 45% on 02/2014 echo Repeat Echo showed EF btw 55 to 60% -- euvolemic PAROXYSMAL ATRIAL FIBRILLATION rate controlled Continue amiodarone and metoprolol ANEMIA Hbg 11 at baseline, was in 7's approx 2 weeks ago per family- Hbg 8 Continue PO iron supplement Monitor CBC CKD STAGE III Creatinine is at baseline Stable DM TYPE 2 Diet controlled in past Hba1c 7.1 on 12/21 Novolog sliding scale coverage -- Pharmacy Glycemic Control consult DVT PROPHYLAXIS SCD's due to hemoptysis, anemia CODE STATUS DNR/DNI DISPOSITION Continue to monitor in telemetry Follows with Dr. Tyler for primary care patient prefers to go home when medically stable Current Inpatient Medications: Current Inpatient Medications Medications (Trade) Dose Ordered Sig/Bruno Route Start Time Stop Time Status Last Admin Dose Admin Acetaminophen (Tylenol Tab) 650 mg Q4H PRN PO 12/25/16 17:00 01/24/17 16:59 12/28/16 16:41 650 MG Ondansetron HCl (Zofran Inj) 4 mg Q6H PRN IV 12/25/16 17:00 01/24/17 16:59 Nitroglycerin (Nitrostat Tab) 0.4 mg UD PRN SL 12/25/16 17:00 01/24/17 16:59 Glucose (Glucose 40% Gel) 15-30 GRAMS 15 GRAMS... UD PRN PO 12/25/16 17:15 01/24/17 17:14 Glucose (Glucose Chew Tab) 4-8 Tablets 4 Tabl... UD PRN PO 12/25/16 17:15 01/24/17 17:14 Dextrose (Dextrose 50% 50ML Syringe) 25-50ML OF 50% DW IV FOR... UD PRN IV 12/25/16 17:15 01/24/17 17:14 12/28/16 04:05 25 ML Glucagon (Glucagon Inj) 1 mg UD PRN SQ 12/25/16 17:15 01/24/17 17:14 Amiodarone HCl (Cordarone Tab) 100 mg DAILY PO 12/26/16 09:00 01/25/17 08:59 12/29/16 08:49 100 MG Ascorbic Acid (Vitamin C Tab) 500 mg DAILY PO 12/26/16 09:00 01/25/17 08:59 12/29/16 08:48 500 MG Cholecalciferol (Vitamin D Tab) 1,000 inter.unit QAM PO 12/26/16 09:00 01/25/17 08:59 12/29/16 08:48 1,000 INTER.UNIT Codeine Phosphate/ Guaifenesin (Robitussin-AC Sugar Free Syrup) 5 ml Q4 PRN PO 12/25/16 17:45 01/24/17 17:44 12/25/16 22:10 5 ML Metoprolol Succinate (Toprol Xl Tab) 12.5 mg DAILY@1200 PO 12/26/16 12:00 01/25/17 11:59 12/28/16 13:07 12.5 MG Oxycodone/ Acetaminophen (Percocet 5-325mg Tab) 0.5 tab Q4H PRN PO 12/25/16 17:45 01/08/17 17:44 12/29/16 09:56 0.5 TAB Pantoprazole Sodium (Protonix Tab) 40 mg DAILY@1200 PO 12/26/16 12:00 01/25/17 11:59 12/28/16 13:08 40 MG Ranitidine HCl (zANTac TAB) 150 mg BID PO 12/25/16 21:00 01/24/17 20:59 12/29/16 08:50 150 MG Trazodone HCl (Desyrel Tab) 25 mg QDD PO 12/25/16 18:00 01/24/17 17:59 12/28/16 16:39 25 MG Trazodone HCl (Desyrel Tab) 50 mg HS PO 12/25/16 21:00 01/24/17 20:59 12/28/16 22:34 50 MG Multivitamins/ Minerals (Multivitamin W/ Minerals Tab) 1 tab DAILY PO 12/26/16 09:00 01/25/17 08:59 12/29/16 08:49 1 TAB Albuterol/ Ipratropium (Duoneb) 3 ml QIDR INH 12/25/16 20:00 01/24/17 19:59 12/29/16 07:09 3 ML Albuterol/ Ipratropium (Duoneb) 3 ml Q2H PRN INH 12/25/16 18:30 01/24/17 18:29 Mupirocin (Bactroban 2% Oint) 1 appln BID EXT 12/26/16 09:00 01/25/17 08:59 12/29/16 08:48 1 APPLN Prednisone (PredniSONE TAB) 30 mg DAILY PO 12/28/16 09:00 01/27/17 08:59 12/29/16 08:50 30 MG Miscellaneous Information (Consult Glycemic Management Pharmacy) 1 ea UD PRN N/A 12/27/16 11:25 01/26/17 11:24 Insulin Aspart (novoLOG ASPART) SLIDING SCALE ACHS SC 12/28/16 07:00 01/27/17 06:59 12/29/16 07:53 6 UNITS Insulin Glargine (Lantus Solostar Pen) See Protocol Text BID SC 12/28/16 21:00 01/26/17 12:29 12/29/16 07:54 14 UNITS Oxybutynin Chloride (Ditropan Tab) 5 mg BID PO 12/28/16 21:00 01/27/17 20:59 12/29/16 08:48 5 MG Linezolid (Zyvox Tab) 600 mg BID PO 12/29/16 11:30 01/05/17 11:29
[2016-12-29 11:50] LABS: BUN/CREATININE RATIO 24.5 (10-20); CALCIUM 8.8 mg/dl (8.5-10.1); CREATININE 1.7 mg/dl (0.60-1.40); POTASSIUM 4.5 mmol/L (3.5-5.1)
[2016-12-29] MEDS: METOPROLOL SUCC 25MG EXT REL TAB PO SCH (11:53)
[2016-12-29] MEDS: PANTOprazole SOD 40 MG TAB PO SCH (11:53)
[2016-12-29] MEDS: LINEZOLID 600 MG TAB PO SCH ×2 (11:55→20:54)
[2016-12-29] MEDS: TRAZODONE HCL 50 MG TAB PO SCH ×2 (16:52→20:54)
--- NOTE | 2016-12-29 17:02 | Pulmonary Consultation ---
History General Date of Service: Dec 29, 2016. Stated Complaint: Pna (Pneumonia)/necrotizing left upper lobe mass HPI The patient is a 86 year old male who presents to [facility] with complaints of Pna (Pneumonia). The patient's primary care provider is Ling Tyler M.D.. 86y/o male admitted to [facility] 12/25/16 for acute on chronic respiratory distress and associated hypotension. He is noted to have a PmHx significant for COPD ( oxygen dependent), lung mass, high grade urothelial ca, CAD/DE/CABG, CHF (EF=45% ), A-fib and CKD III. Prior to admission he was noted to have productive sputum with hemoptysis had grown out MRSA (sputum cx: 11/09/16) and was treated with Septra, Levquin and then transferred to [facility]. He was also treated with a 10 day course of prednisone which was completed 3 days prior to admission. He has also been having dysuria with associated hematuria for which he is being followed by urology. Patient is currently also being followed by infectious disease for possible pneumonia. The son was at the patients side during our interview and was very helpful. The patient and son have noted increasing weight loss as well as fatigue and falls over the last 3-6 months. This is greatly progressed over the last 4-6 weeks as well. Hes been having notable sputum production with hemoptysis which is minimal responsive to the outpatient antibiotic courses. In last week hes had increase in his left upper extremity swelling as well as signs of increased anterior chest wall venous enlargement. He also notes mild bilateral clavicular pain and sternal pain at this time. He currently denies: Fever, chills, classic cardiac chest pain. Labs: WBC: [id number](Neutro#17.25) PLT: [id number] INR: 1.0 PT: 10.4 aPTT: 26.7 Bun: 138117 Cr: 1.601.501.70 BNP: 13,246 ALB: 2.1 CT Thorax (12/28/16) compared to 04/07/2014 4 cm right upper lobe speculated lesion 3cm left upper lobe mass Anterior left sided mass with cavitation appears at B-P fistula was subcutaneous air Small left-sided pleural effusion with signs of rounded atelectasis associated Cardiac Echo (12/26/16) LV: EF=55-60% RV: TAPSE > 1.5cm AV: moderate sclerosis Grade 1 diastolic dysfunction Microbiology: URINE (07/04/10) Proteus (resistant) (04/24/14) MRSA (07/28/15) MRSA (09/07/15) MRSA Historian: patient, family, EMS Review of Systems Constitutional: reports: weight loss Eyes: reports: no symptoms ENT: reports: no symptoms Cardiovascular: reports: no symptoms Respiratory: reports: as stated in HPI Gastrointestinal: reports: no symptoms Genitourinary - Male: reports: no symptoms Musculoskeletal: reports: joint pain, myalgias Integumentary: reports: no symptoms Neurologic: reports: lethargy, memory loss Psychiatric: reports: no symptoms Endocrine: no symptoms Hematologic / Lymphatic: no symptoms Allergic / Immunologic: no symptoms Past Medical History Past Medical History: Abnormal gait Arthritis Asthma Atrial fibrillation (rate controlled) 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 Ca (PAPILLARY UROTHELIAL CARCINOMA, HIGH GRADE) Chronic kidney disease, stage 3 Chronic obstructive pulmonary disease Constipation Diabetes mellitus Emphysema lung GERD Gross hematuria Heart disease Hyperlipidemia Hypertension Insomnia Lung cancer Malignant neoplasm of bladder Osteoarthritis Oxygen Dependent Prostatitis Urinary tract infection CHF/DE/CAD Past Medical History: BPH, cancer (bladder ), cancer - lung, congestive heart failure, COPD, coronary artery disease, diabetes, high cholesterol, hypertension , myocardial infarction, other (anemia, chronic respiratory failure with hypoxia , CKD stage III) Past Surgical History: Left TKA Small Bowel Resection Carotid Endarterectomy CABG x4 1993 Hernia repair Carpal Tunnel Mohs Past Surgical History: angioplasty with stent (coronary artery), bowel resection, coronary bypass surgery (x 4 ), orthopedic surgery (knee surgery, carpal tunnel), other (carotid endartarectomy) Family History Noncontributory due to advanced age Cardiac disease Social History Former smoker Retired Hx Tobacco Use In Past Year?: No Smoking Status: Former Smoker (quit 3 years ago, prior 1 ppd x 75 years) Alcohol: never Marital status: Occupational Status: retired Immunizations History of Influenza Vaccine: Unknown History of Tetanus Vaccine?: Unknown History of Pneumococcal: Unknown History of Hepatitis B Vaccine: Unknown History of MDRO History of MDRO: Yes Type of MDRO: MRSA Allergies Coded Allergies: Adhesives (Verified Allergy, Intermediate, RASH, 12/25/16) Current Medications Reported Home Medications Medications Dose Route/Sig Max Daily Dose Days Date Category Dose Instructions Daily Vitamin Formula+Ir (Multiple Vitamins W/ Iron) 1 Tab Tab 1 Tab PO DAILY 12/25/16 Reported Percocet 5MG/325MG (Oxycodone/Acetaminophen) Tab 0.5 Tablet PO Q4H PRN 12/25/16 Reported Keflex (Cephalexin Monohydrate) 500 Mg Cap 500 Mg PO TID 12/25/16 Reported Trazodone (Trazodone HCl) 50 Mg Tab 25 Mg PO QDD 12/25/16 Reported Ascorbic Acid 500 Mg Tab 500 Mg PO DAILY 12/25/16 Reported Codeine/Guaifenesin 100-10 mg/5Ml (Guaifenesin-Codeine) 1 Skylar Skylar 5-10 Ml PO Q4 PRN 01/18/16 Reported Toprol-Xl (Metoprolol Succinate) 25 Mg Tabcr 12.5 Mg PO DAILYBL 07/26/15 Reported 12.5 mg by mouth daily at noon [Alteril] 2 Tabs PO HS 07/26/15 Reported Duoneb (Ipratropium-Albuterol) 3 Ml Nebu 1 Treatment INH QID 07/26/15 Reported Zantac (Ranitidine HCl) 150 Mg Tab 150 Mg PO BID 07/26/15 Reported Protonix (Pantoprazole Sodium) 40 Mg Tab 40 Mg PO NOON 07/26/15 Reported Trazodone (Trazodone HCl) 50 Mg Tab 50 Mg PO HS 07/26/15 Reported Oxygen Gas 3.5 Liter NA HS 04/24/14 Reported 3.5 lpm via nasal cannula at bedtime and 4 lpm with exertion Pacerone (Amiodarone Hcl) 200 Mg Tab 100 Mg PO DAILY 04/06/14 Reported Vitamin D3 (Cholecalciferol) 1,000 Unit Tab 1,000 Units PO QAM 01/12/14 Reported Nitrostat (Nitroglycerin) 0.4 Mg Tab 0.4 Mg UT PRN 05/26/10 Reported Physical Physical Exam Vital Signs: Date Time Temp Pulse Resp B/P (MAP) Pulse Ox O2 Delivery O2 Flow Rate FiO2 12/29/16 15:25 79 16 97 Room Air 12/29/16 12:00 Room Air 12/29/16 11:13 79 16 95 Room Air 12/29/16 11:08 36.6 82 20 116/63 (80) 95 12/29/16 08:00 Room Air 12/29/16 07:47 36.7 86 20 125/54 (77) 94 12/29/16 07:12 66 16 96 Room Air 12/29/16 04:00 36.6 74 18 92/48 (63) 97 Nasal Cannula 2.0 12/29/16 04:00 Nasal Cannula 2.0 12/29/16 00:13 Nasal Cannula 2.0 12/29/16 00:00 36.6 77 20 95/49 (64) 98 Nasal Cannula 2.0 12/28/16 20:00 96 Room Air 12/28/16 19:50 36.7 78 16 98/52 (67) 93 Room Air 12/28/16 19:25 72 18 95 Room Air General Appearance: other (severely cachectic and mildly confused but no signs of acute distress) Head: NORMOCEPHALIC, ATRAUMATIC Eyes: PERRLA, NO DISCHARGE, EOMI, SCLERAE NORMAL ENT: NORMAL EAR EXAM, NORMAL NASAL EXAM, NORMAL MOUTH EXAM, NORMAL THROAT EXAM , other (multiple dental caries, no posterior oropharyngeal erythema) Neck: other (signs of increasing JVD along with caput medusa) Respiratory: other (patient took poor inspiratory effort and notably decreased breath sounds bilaterally) Cardiovasular: other (S1 and S2, regular rythm notable JVD unilaterally on the left side) Abdomen: NON TENDER, NORMAL BOWEL SOUNDS, NO REBOUND, NO MASSES, NO GUARDING Genitourinary - Male: EXTERNAL GENITALIA NORMAL Back: NORMAL INSPECTION, NO MIDLINE TENDERNESS, NO CVA TENDERNESS Upper Extremities: other (left upper extremity notably edematous with 2+ pitting edema) Lower Extremities: NO EDEMA, NO DEFORMITY, NORMAL ROM Pulses: carotid (R) (1+), carotid (L) (1+), posterior tibial (R), posterior tibial (L) (1+) Neuro: lethargic, disoriented Diagnostics Labs Results Past 24 Hours Test 12/28/16 19:54 12/28/16 21:34 12/28/16 23:57 12/29/16 04:00 Range/Units Bedside Glucose 373 284 184 70-99 mg/dl Vancomycin Level Trough 14.3 SEE COMMENT mcg/ml Test 12/29/16 06:47 12/29/16 07:46 12/29/16 10:59 12/29/16 11:37 Range/Units Bedside Glucose 152 138 104 70-99 mg/dl Sodium Level 138 136-145 mmol/L Potassium Level 4.5 3.5-5.1 mmol/L Chloride Level 102 98-107 mmol/L Carbon Dioxide Level 27 21-32 mmol/L Anion Gap 9.0 3-11 mmol/L Blood Urea Nitrogen 42 7-18 mg/dl Creatinine 1.70 0.60-1.40 mg/dl Est Creatinine Clear Calc Drug Dose 24.9 ml/min Estimated GFR () 40.8 Estimated GFR (Non- 35.2 BUN/Creatinine Ratio 24.5 10-20 Random Glucose 93 70-99 mg/dl Calcium Level 8.8 8.5-10.1 mg/dl Diagnostic Radiology CT Thorax (12/28/16) compared to 04/07/2014 4 cm right upper lobe speculated lesion 3cm left upper lobe mass Anterior left sided mass with cavitation appears at B-P fistula was subcutaneous air Small left-sided pleural effusion with signs of rounded atelectasis associated EKG Interpretation: NORMAL EKG Impression Assessment and Plan 78-year-old gentleman with aggressive cavitary lesion: #1 cavitary lesion: The patient has an aggressive left upper lobe cavitary lesion consistent with primary lung carcinoma or even metastatic disease. At this time he does show signs of pending superior vena caval syndrome. The patient 7 and his son had a extensive discussion about possible radiation oncology for management of pleurisy/bone pain as well as further workup with head CT as the patient has had increasing falls as well as lethargy over the last 2 months. The patient and some believe this was not best interest of the patient and they have decided to be less invasive/less aggressive. They're still going to work with family members and most likely head towards hospice level of care but have not made that decision at this time. #2 pneumonia: Patient has had multiple rounds of outpatient antibiotics and is currently followed by ID. Is possible this is not an active pneumonia but more cavitary lesion with associated hemoptysis which is his progressive at this time. I do believe antibiotic courses appropriate for possible palliative care. Signoff: At this time I do not believe pulmonary can be of any more assistance please contact the pulmonary team if the patient has a clinical change and/or the family and patient will like to readdress more aggressive measures.
[2016-12-30] VITALS (10 sets, daily range): BP systolic 102–136; BP diastolic 50–72; PULSE 72–96; TEMP 36.4–37.4; O2SAT 93–98
[2016-12-30 06:17] LABS: HEMATOCRIT 25.1 % (42-52); IG% 0.3 %; LYMPH % 5.1 %; LYMPH ABS # 0.72 K/uL (1.2-3.4); MEAN CELL VOLUME 92.6 fL (80-100); MEAN CORPUSCULAR HEMOGLOBIN 30.3 pg (25-34); MEAN CORPUSCULAR HGB CONC 32.7 g/dl (32-36); MEAN PLATELET VOLUME 8.5 fL (7.4-10.4); MONO % 6.4 %; NEUT % 88.2 %; PLATELET COUNT 232 K/uL (130-400); RED BLOOD COUNT 2.71 M/uL (4.7-6.1); WHITE BLOOD COUNT 14.14 K/uL (4.8-10.8)
[2016-12-30 06:54] LABS: BUN/CREATININE RATIO 23.3 (10-20); CALCIUM 8.4 mg/dl (8.5-10.1); CREATININE 1.8 mg/dl (0.60-1.40); POTASSIUM 4.6 mmol/L (3.5-5.1)
[2016-12-30] MEDS: ALBUT/IPRATROP 3MG/0.5MG NEB 3 ML VIAL INH SCH ×4 (06:54→19:13)
[2016-12-30 07:32] LABS: COMPLETE YES
[2016-12-30] MEDS: OXYCODONE/ACETAMINOPHEN 5-325 TAB PO PRN ×2 (07:41→21:39)
[2016-12-30] MEDS: CHOLECALCIFEROL 1000 INTER.UNIT TAB PO SCH (07:42)
[2016-12-30] MEDS: AMIODARONE 200 MG TAB PO SCH (07:42)
[2016-12-30] MEDS: ASCORBIC ACID 500 MG TAB PO SCH (07:42)
[2016-12-30] MEDS: OXYBUTYNIN CHLORIDE 5 MG TAB PO SCH (07:42)
[2016-12-30] MEDS: LINEZOLID 600 MG TAB PO SCH ×2 (07:42→21:40)
[2016-12-30] MEDS: CEROVITE ADV FORMULA TAB PO SCH (07:42)
[2016-12-30] MEDS: MUPIROCIN 2% OINT 22 GM TUBE EXT SCH ×2 (07:43→21:40)
[2016-12-30] MEDS: RANITIDINE HCL 150 MG TAB PO SCH ×2 (07:43→21:40)
[2016-12-30] MEDS: INSULIN ASPART 100 UNITS/ML 3 ML PEN SC SCH ×4 (07:47→20:38)
[2016-12-30] MEDS: INSULIN GLARGINE SOLOSTAR 100 UNITS/ML 3 ML PEN SC SCH ×2 (07:48→21:42)
[2016-12-30] MEDS: ACETAMINOPHEN 325 MG TAB PO PRN (10:57)
--- NOTE | 2016-12-30 11:00 | Progress Note ---
Subjective Date of Service: Dec 30, 2016. Subjective Pt evaluation today including: conversation w/ patient, chart review, lab review, conversation w/ client consultant pt with hx of tcc and recent gross hematuria on and off a month . He also has dysuria with negative culture. Pt has apparent lung mass with limited survival time of months per pt and client consultant. Not actively reporting gross hematuria Problem List Medical Problems: (1) Acute urinary retention Status: Acute (2) COPD (chronic obstructive pulmonary disease) Status: Acute (3) Hematuria Status: Acute (4) Hemoptysis Status: Acute (5) Hypoxia Status: Acute (6) Shortness of breath Status: Acute Objective Vital Signs Date Time Temp Pulse Resp B/P (MAP) Pulse Ox O2 Delivery O2 Flow Rate FiO2 12/30/16 08:12 36.5 96 18 136/51 (79) 96 Room Air 12/30/16 08:00 Room Air 12/30/16 06:54 72 16 93 Room Air 12/30/16 04:30 36.6 73 18 108/57 (74) 94 Room Air 12/30/16 04:00 Room Air 12/30/16 00:16 36.9 81 16 102/50 (67) 94 Room Air 12/30/16 00:00 Room Air 12/29/16 20:04 Room Air 12/29/16 19:53 36.9 89 18 123/73 (90) 94 Room Air 12/29/16 19:05 84 16 97 Room Air 12/29/16 16:50 36.9 82 20 126/60 (82) 93 Room Air 12/29/16 16:00 Room Air 12/29/16 15:25 79 16 97 Room Air 12/29/16 12:00 Room Air 12/29/16 11:13 79 16 95 Room Air 12/29/16 11:08 36.6 82 20 116/63 (80) 95 Laboratory Results Last 24 Hours Test 12/29/16 10:59 12/29/16 11:37 12/29/16 16:50 12/29/16 20:35 Sodium Level 138 mmol/L Potassium Level 4.5 mmol/L Chloride Level 102 mmol/L Carbon Dioxide Level 27 mmol/L Anion Gap 9.0 mmol/L Blood Urea Nitrogen 42 mg/dl Creatinine 1.70 mg/dl Est Creatinine Clear Calc Drug Dose 24.9 ml/min Estimated GFR () 40.8 Estimated GFR (Non- 35.2 BUN/Creatinine Ratio 24.5 Random Glucose 93 mg/dl Calcium Level 8.8 mg/dl Bedside Glucose 104 mg/dl 244 mg/dl 298 mg/dl Test 12/30/16 05:49 12/30/16 06:57 White Blood Count 14.14 K/uL Red Blood Count 2.71 M/uL Hemoglobin 8.2 g/dL Hematocrit 25.1 % Mean Corpuscular Volume 92.6 fL Mean Corpuscular Hemoglobin 30.3 pg Mean Corpuscular Hemoglobin Concent 32.7 g/dl Platelet Count 232 K/uL Mean Platelet Volume 8.5 fL Neutrophils (%) (Auto) 88.2 % Lymphocytes (%) (Auto) 5.1 % Monocytes (%) (Auto) 6.4 % Eosinophils (%) (Auto) 0.0 % Basophils (%) (Auto) 0.0 % Neutrophils # (Auto) 12.47 K/uL Lymphocytes # (Auto) 0.72 K/uL Monocytes # (Auto) 0.91 K/uL Eosinophils # (Auto) 0.00 K/uL Basophils # (Auto) 0.00 K/uL RDW Standard Deviation 48.7 fL RDW Coefficient of Variation 14.4 % Immature Granulocyte % (Auto) 0.3 % Immature Granulocyte # (Auto) 0.04 K/uL Red Blood Cell Morphology Unremarkable Sodium Level 136 mmol/L Potassium Level 4.6 mmol/L Chloride Level 102 mmol/L Carbon Dioxide Level 28 mmol/L Anion Gap 6.0 mmol/L Blood Urea Nitrogen 42 mg/dl Creatinine 1.80 mg/dl Est Creatinine Clear Calc Drug Dose 23.4 ml/min Estimated GFR () 38.1 Estimated GFR (Non- 32.9 BUN/Creatinine Ratio 23.3 Random Glucose 148 mg/dl Calcium Level 8.4 mg/dl Bedside Glucose 158 mg/dl Assessment and Plan Check cytology bladder scan Pyridium for dysuria d/c oxybutinin 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 Recommend keeping him off blood thinners and trying to avoid intervention unless forced to for comfort
[2016-12-30] MEDS: PANTOprazole SOD 40 MG TAB PO SCH (11:37)
[2016-12-30] MEDS: METOPROLOL SUCC 25MG EXT REL TAB PO SCH (11:37)
[2016-12-30] MEDS: PHENAZOPYRIDINE HCL 100 MG TAB PO SCH ×2 (13:49→21:39)
--- NOTE | 2016-12-30 15:42 | Progress Note ---
Medicine Progress Note Date & Time of Visit: Dec 30, 2016 at 15:30. Subjective patient seen resting in bed, not in distress family at bedside states left upper neck pain is about 8/10 denies chest pain, dyspnea has occasional cough dysuria about the same denies other symptoms Objective Last 8 Hrs Date Time Temp Pulse Resp B/P (MAP) Pulse Ox O2 Delivery O2 Flow Rate FiO2 12/30/16 12:00 Room Air 12/30/16 11:37 36.8 73 18 119/60 (79) 95 Room Air 12/30/16 11:27 77 16 94 Room Air 12/30/16 08:12 36.5 96 18 136/51 (79) 96 Room Air 12/30/16 08:00 Room Air Physical Exam: General- oriented x 3, not in distress, speaks in sentences with no effort Neck- no JVD Lungs- decreased breath sounds left base, clear on the right, no wheezes Heart- regular rhythm; no murmur, normal rate Abdomen- normal bowel sounds, soft, nontender Extremities- no pretibial edema, no calf tenderness left forearm/upper arm edema, no warmth/tenderness/swelling Neuro- alert, oriented x 3 no gross focal neuro deficits Skin- warm & dry Laboratory Results: Last 24 Hours Test 12/29/16 16:50 12/29/16 20:35 12/30/16 05:49 12/30/16 06:57 Bedside Glucose 244 mg/dl 298 mg/dl 158 mg/dl White Blood Count 14.14 K/uL Red Blood Count 2.71 M/uL Hemoglobin 8.2 g/dL Hematocrit 25.1 % Mean Corpuscular Volume 92.6 fL Mean Corpuscular Hemoglobin 30.3 pg Mean Corpuscular Hemoglobin Concent 32.7 g/dl Platelet Count 232 K/uL Mean Platelet Volume 8.5 fL Neutrophils (%) (Auto) 88.2 % Lymphocytes (%) (Auto) 5.1 % Monocytes (%) (Auto) 6.4 % Eosinophils (%) (Auto) 0.0 % Basophils (%) (Auto) 0.0 % Neutrophils # (Auto) 12.47 K/uL Lymphocytes # (Auto) 0.72 K/uL Monocytes # (Auto) 0.91 K/uL Eosinophils # (Auto) 0.00 K/uL Basophils # (Auto) 0.00 K/uL RDW Standard Deviation 48.7 fL RDW Coefficient of Variation 14.4 % Immature Granulocyte % (Auto) 0.3 % Immature Granulocyte # (Auto) 0.04 K/uL Red Blood Cell Morphology Unremarkable Sodium Level 136 mmol/L Potassium Level 4.6 mmol/L Chloride Level 102 mmol/L Carbon Dioxide Level 28 mmol/L Anion Gap 6.0 mmol/L Blood Urea Nitrogen 42 mg/dl Creatinine 1.80 mg/dl Est Creatinine Clear Calc Drug Dose 23.4 ml/min Estimated GFR () 38.1 Estimated GFR (Non- 32.9 BUN/Creatinine Ratio 23.3 Random Glucose 148 mg/dl Calcium Level 8.4 mg/dl Test 12/30/16 11:28 Bedside Glucose 114 mg/dl Assessment & Plan 86 year old male with history of COPD on O2 at , CAD, CHF, DM, Paroxysmal A fib presenting with shortness of breath. COMMUNITY ACQUIRED PNEUMONIA Presented with worsening SOB and cough Sputum cx on 11/09/16 grew MRSA- sensitive to bactrim, vanco, gentamin, rifampin Failed outpatient Abx treatment with Septra, Levaquin and Keflex CXR on admission showed left upper lobe opacity- favors pneumonia WBC now normalized off oxygen Blood cultures: negative Sputum culture: normal alex Urine culture: negative Day 4 Zosyn and vancomycin IV-->transitioned to Linezolid Day 2 Prednisone taper Nebs q6h -- Speech Therapy consulted: * 1. Moist dental soft diet 2. Aspiration precautions: straws okay 3. 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 * There is mild concentric left ventricular hypertrophy. * The base inferior and posterior wall are hypokinetic, otherwise, normal wall motion. * Grade I diastolic dysfunction, (abnormal relaxation pattern). * Aortic valve sclerosis moderate, without significant aortic valvular stenosis. * Small PFO by color doppler interrogation * Compared to prior study, there is no significant change. CHRONIC SYSTOLIC CHF EF 45% on 02/2014 echo Repeat Echo showed EF btw 55 to 60% -- euvolemic PAROXYSMAL ATRIAL FIBRILLATION rate controlled Continue amiodarone and metoprolol ANEMIA Hbg 11 at baseline, was in 7's approx 2 weeks ago per family- Hbg 8 Continue PO iron supplement Monitor CBC CKD STAGE III Creatinine is at baseline Stable DM TYPE 2 Diet controlled in past Hba1c 7.1 on 12/21 Novolog sliding scale coverage -- Pharmacy Glycemic Control consult DVT PROPHYLAXIS SCD's due to hemoptysis, anemia CODE STATUS DNR/DNI DISPOSITION pending Palliative Care consult placed Follows with Dr. Tyler for primary care patient prefers to go home when medically stable Current Inpatient Medications: Current Inpatient Medications Medications (Trade) Dose Ordered Sig/Bruno Route Start Time Stop Time Status Last Admin Dose Admin Acetaminophen (Tylenol Tab) 650 mg Q4H PRN PO 12/25/16 17:00 01/24/17 16:59 12/30/16 10:57 650 MG Ondansetron HCl (Zofran Inj) 4 mg Q6H PRN IV 12/25/16 17:00 01/24/17 16:59 Nitroglycerin (Nitrostat Tab) 0.4 mg UD PRN SL 12/25/16 17:00 01/24/17 16:59 Glucose (Glucose 40% Gel) 15-30 GRAMS 15 GRAMS... UD PRN PO 12/25/16 17:15 01/24/17 17:14 Glucose (Glucose Chew Tab) 4-8 Tablets 4 Tabl... UD PRN PO 12/25/16 17:15 01/24/17 17:14 Dextrose (Dextrose 50% 50ML Syringe) 25-50ML OF 50% DW IV FOR... UD PRN IV 12/25/16 17:15 01/24/17 17:14 12/28/16 04:05 25 ML Glucagon (Glucagon Inj) 1 mg UD PRN SQ 12/25/16 17:15 01/24/17 17:14 Amiodarone HCl (Cordarone Tab) 100 mg DAILY PO 12/26/16 09:00 01/25/17 08:59 12/30/16 07:42 100 MG Ascorbic Acid (Vitamin C Tab) 500 mg DAILY PO 12/26/16 09:00 01/25/17 08:59 12/30/16 07:42 500 MG Cholecalciferol (Vitamin D Tab) 1,000 inter.unit QAM PO 12/26/16 09:00 01/25/17 08:59 12/30/16 07:42 1,000 INTER.UNIT Codeine Phosphate/ Guaifenesin (Robitussin-AC Sugar Free Syrup) 5 ml Q4 PRN PO 12/25/16 17:45 01/24/17 17:44 12/25/16 22:10 5 ML Metoprolol Succinate (Toprol Xl Tab) 12.5 mg DAILY@1200 PO 12/26/16 12:00 01/25/17 11:59 12/30/16 11:37 12.5 MG Oxycodone/ Acetaminophen (Percocet 5-325mg Tab) 0.5 tab Q4H PRN PO 12/25/16 17:45 01/08/17 17:44 12/30/16 07:41 0.5 TAB Pantoprazole Sodium (Protonix Tab) 40 mg DAILY@1200 PO 12/26/16 12:00 01/25/17 11:59 12/30/16 11:37 40 MG Ranitidine HCl (zANTac TAB) 150 mg BID PO 12/25/16 21:00 01/24/17 20:59 12/30/16 07:43 150 MG Trazodone HCl (Desyrel Tab) 25 mg QDD PO 12/25/16 18:00 01/24/17 17:59 12/29/16 16:52 25 MG Trazodone HCl (Desyrel Tab) 50 mg HS PO 12/25/16 21:00 01/24/17 20:59 12/29/16 20:54 50 MG Multivitamins/ Minerals (Multivitamin W/ Minerals Tab) 1 tab DAILY PO 12/26/16 09:00 01/25/17 08:59 12/30/16 07:42 1 TAB Albuterol/ Ipratropium (Duoneb) 3 ml QIDR INH 12/25/16 20:00 01/24/17 19:59 12/30/16 15:13 3 ML Albuterol/ Ipratropium (Duoneb) 3 ml Q2H PRN INH 12/25/16 18:30 01/24/17 18:29 Mupirocin (Bactroban 2% Oint) 1 appln BID EXT 12/26/16 09:00 01/25/17 08:59 12/30/16 07:43 1 APPLN Miscellaneous Information (Consult Glycemic Management Pharmacy) 1 ea UD PRN N/A 12/27/16 11:25 01/26/17 11:24 Insulin Aspart (novoLOG ASPART) SLIDING SCALE ACHS SC 12/28/16 07:00 01/27/17 06:59 12/30/16 11:56 5 UNITS Insulin Glargine (Lantus Solostar Pen) See Protocol Text BID SC 12/28/16 21:00 01/26/17 12:29 12/30/16 07:48 14 UNITS Oxybutynin Chloride (Ditropan Tab) 5 mg BID PO 12/28/16 21:00 01/27/17 20:59 12/30/16 07:42 5 MG Linezolid (Zyvox Tab) 600 mg BID PO 12/29/16 11:30 01/05/17 11:29 12/30/16 07:42 600 MG Prednisone (PredniSONE TAB) 20 mg DAILY PO 12/30/16 09:00 01/27/17 08:59 12/30/16 07:42 20 MG Phenazopyridine HCl (Pyridium Tab) 100 mg TID PO 12/30/16 14:00 01/29/17 13:59 12/30/16 13:49 100 MG
[2016-12-30] MEDS: TRAZODONE HCL 50 MG TAB PO SCH ×2 (17:02→21:39)
[2016-12-31] VITALS (10 sets, daily range): BP systolic 108–141; BP diastolic 60–85; PULSE 73–87; TEMP 36.4–36.5; O2SAT 92–97
[2016-12-31] MEDS: ALBUT/IPRATROP 3MG/0.5MG NEB 3 ML VIAL INH SCH ×4 (07:18→20:33)
[2016-12-31] MEDS: LINEZOLID 600 MG TAB PO SCH ×2 (07:51→21:18)
[2016-12-31] MEDS: PHENAZOPYRIDINE HCL 100 MG TAB PO SCH ×3 (07:51→21:17)
[2016-12-31] MEDS: ASCORBIC ACID 500 MG TAB PO SCH (07:52)
[2016-12-31] MEDS: CHOLECALCIFEROL 1000 INTER.UNIT TAB PO SCH (07:52)
[2016-12-31] MEDS: RANITIDINE HCL 150 MG TAB PO SCH ×2 (07:53→21:17)
[2016-12-31] MEDS: AMIODARONE 200 MG TAB PO SCH (07:53)
[2016-12-31] MEDS: CEROVITE ADV FORMULA TAB PO SCH (07:53)
[2016-12-31] MEDS: INSULIN GLARGINE SOLOSTAR 100 UNITS/ML 3 ML PEN SC SCH ×2 (07:58→21:20)
[2016-12-31] MEDS: INSULIN ASPART 100 UNITS/ML 3 ML PEN SC SCH ×4 (07:58→21:20)
[2016-12-31] MEDS: MUPIROCIN 2% OINT 22 GM TUBE EXT SCH ×2 (08:00→21:18)
[2016-12-31] MEDS: ACETAMINOPHEN 325 MG TAB PO PRN (11:29)
[2016-12-31] MEDS: PANTOprazole SOD 40 MG TAB PO SCH (11:36)
[2016-12-31] MEDS: METOPROLOL SUCC 25MG EXT REL TAB PO SCH (11:37)
--- NOTE | 2016-12-31 12:19 | Pharmacy Progress Note ---
Glycemic Control Progress Note Date of Service Dec 31, 2016. Scope Glycemic Pharmacist consulted for glycemic control to write orders per [facility] inpatient glycemic control protocol. Objective Accuchecks BSG (last 24hrs): Test 12/30/16 16:53 12/30/16 20:09 12/30/16 20:10 12/30/16 20:37 Bedside Glucose 142 mg/dl (70-99) 76 mg/dl (70-99) 69 mg/dl (70-99) 100 mg/dl (70-99) Test 12/31/16 00:36 12/31/16 06:49 Bedside Glucose 130 mg/dl (70-99) 121 mg/dl (70-99) HbA1c: Test 12/26/16 05:38 Hemoglobin A1c 7.1 % (4.5-5.6) H Recent Pertinent Medications The patient is currently receiving: * Basal/bolus insulin Outpatient Anti-Diabetic Meds N/A Assessment & Plan ASSESSMENT: * 86 yo M admitted for treatment of pneumonia, initiated on PO steroids which caused BSGs to climb * Pt was started on an insulin drip for BSGs in the 300's on 12/27/16 * BSGs responded and he was transitioned off drip the following day to basal/ bolus regimen * Since transition, BSGs have been fairly well controlled * Yesterday he received a total of 42 units of insulin with BSGs ranging 69-192 * Lowest BSG was at bedtime so a reduced dose of Lantus was given * I would say at this point it is time to start backing off on regimen to avoid further low BSGs * Reduce Lantus dose to 7 units BID, HOLD if BSG <110 * Loosen CF/CR * ADA & AACE recommend a goal blood sugar range 140-180 mg/dl for the majority of critically ill & non-critically ill patients. However, more stringent targets may be selected in individual cases. Tighten to 110-140 mg/dL to mirror home control. PLAN FOR INPATIENT GLYCEMIC CONTROL: * Basal insulin with LANTUS 7 units SQ BID * Give 0 if BSGs trending <110 mg/dL * Correctional Insulin with NOVOLOG per scale ACHS * Correction factor: 35 * Carb ratio: 12 * Goal range remains 110-140 mg/dL * Please note that the plan above was derived based on current level of insulin resistance and hospital stress. These recommendations are appropriate for inpatient admission only. Plan of care upon discharge will need to be reassessed to avoid potential outpatient hypo/hyperglycemia. Thank you.
--- NOTE | 2016-12-31 14:12 | Progress Note ---
Subjective Date of Service: Dec 31, 2016. Subjective Pt evaluation today including: conversation w/ patient, physical exam, chart review pt w/o hematuria but still w dysuria started pyridium last pm Problem List Medical Problems: (1) Acute urinary retention Status: Acute (2) COPD (chronic obstructive pulmonary disease) Status: Acute (3) Hematuria Status: Acute (4) Hemoptysis Status: Acute (5) Hypoxia Status: Acute (6) Shortness of breath Status: Acute Objective Vital Signs Date Time Temp Pulse Resp B/P (MAP) Pulse Ox O2 Delivery O2 Flow Rate FiO2 12/31/16 12:17 Room Air 12/31/16 11:52 36.5 81 18 138/69 (92) 96 Room Air 12/31/16 11:36 85 18 96 Room Air 12/31/16 08:00 36.5 74 18 135/70 (91) 92 Room Air 12/31/16 08:00 Room Air 12/31/16 07:18 81 18 96 Room Air 12/31/16 04:12 36.4 78 22 108/67 (81) 95 Room Air 12/31/16 04:02 Room Air 12/31/16 00:36 36.5 73 21 112/60 (77) 97 Room Air 0.0 12/31/16 00:00 Room Air 12/30/16 20:00 Room Air 12/30/16 19:13 78 18 98 Nasal Cannula 1.0 12/30/16 19:05 36.4 77 20 136/72 (93) 98 Nasal Cannula 1.0 12/30/16 16:55 37.4 82 20 119/67 (84) 94 Room Air 12/30/16 16:00 Room Air 12/30/16 15:13 76 18 94 Room Air Laboratory Results Last 24 Hours Test 12/30/16 16:53 12/30/16 20:09 12/30/16 20:10 12/30/16 20:37 Bedside Glucose 142 mg/dl 76 mg/dl 69 mg/dl 100 mg/dl Test 12/31/16 00:36 12/31/16 06:49 Bedside Glucose 130 mg/dl 121 mg/dl Assessment and Plan Check cytology bladder scan Pyridium for dysuria d/c oxybutinin 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 Recommend keeping him off blood thinners and trying to avoid intervention unless forced to for comfort
[2016-12-31] MEDS ORDERED: LIDODERM (LIDOCAINE) PATCH 5% TD ONE (16:18)
--- NOTE | 2016-12-31 16:21 | Progress Note ---
Medicine Progress Note Date & Time of Visit: Dec 31, 2016 at 16:21. Objective Last 8 Hrs Date Time Temp Pulse Resp B/P (MAP) Pulse Ox O2 Delivery O2 Flow Rate FiO2 12/31/16 15:20 84 12 95 Room Air 12/31/16 12:17 Room Air 12/31/16 11:52 36.5 81 18 138/69 (92) 96 Room Air 12/31/16 11:36 85 18 96 Room Air Physical Exam: General- oriented x 3, not in distress, speaks in sentences with no effort Neck- no JVD Lungs- decreased breath sounds left base, clear on the right, no wheezes Heart- regular rhythm; no murmur, normal rate Abdomen- normal bowel sounds, soft, nontender Extremities- no pretibial edema, no calf tenderness left forearm/upper arm edema, no warmth/tenderness/swelling Neuro- alert, oriented x 3 no gross focal neuro deficits Skin- warm & dry Laboratory Results: Last 24 Hours Test 12/30/16 16:53 12/30/16 20:09 12/30/16 20:10 12/30/16 20:37 Bedside Glucose 142 mg/dl 76 mg/dl 69 mg/dl 100 mg/dl Test 12/31/16 00:36 12/31/16 06:49 Bedside Glucose 130 mg/dl 121 mg/dl Assessment & Plan 86 year old male with history of COPD on O2 at , CAD, CHF, DM, Paroxysmal A fib presenting with shortness of breath. COMMUNITY ACQUIRED PNEUMONIA Presented with worsening SOB and cough Sputum cx on 11/09/16 grew MRSA- sensitive to bactrim, vanco, gentamin, rifampin Failed outpatient Abx treatment with Septra, Levaquin and Keflex CXR on admission showed left upper lobe opacity- favors pneumonia WBC now normalized off oxygen Blood cultures: negative Sputum culture: normal alex Urine culture: negative Day 4 Zosyn and vancomycin IV-->transitioned to Linezolid Day 2 Prednisone taper Nebs q6h -- Speech Therapy consulted: * 1. Moist dental soft diet 2. Aspiration precautions: straws okay 3. 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 * There is mild concentric left ventricular hypertrophy. * The base inferior and posterior wall are hypokinetic, otherwise, normal wall motion. * Grade I diastolic dysfunction, (abnormal relaxation pattern). * Aortic valve sclerosis moderate, without significant aortic valvular stenosis. * Small PFO by color doppler interrogation * Compared to prior study, there is no significant change. CHRONIC SYSTOLIC CHF EF 45% on 02/2014 echo Repeat Echo showed EF btw 55 to 60% -- euvolemic PAROXYSMAL ATRIAL FIBRILLATION rate controlled Continue amiodarone and metoprolol ANEMIA Hbg 11 at baseline, was in 7's approx 2 weeks ago per family- Hbg 8 Continue PO iron supplement Monitor CBC CKD STAGE III Creatinine is at baseline Stable DM TYPE 2 Diet controlled in past Hba1c 7.1 on 12/21 Novolog sliding scale coverage -- Pharmacy Glycemic Control consult DVT PROPHYLAXIS SCD's due to hemoptysis, anemia CODE STATUS DNR/DNI DISPOSITION pending Palliative Care consult placed Follows with Dr. Tyler for primary care patient prefers to go home when medically stable Current Inpatient Medications: Current Inpatient Medications Medications (Trade) Dose Ordered Sig/Bruno Route Start Time Stop Time Status Last Admin Dose Admin Acetaminophen (Tylenol Tab) 650 mg Q4H PRN PO 12/25/16 17:00 01/24/17 16:59 12/31/16 11:29 650 MG Ondansetron HCl (Zofran Inj) 4 mg Q6H PRN IV 12/25/16 17:00 01/24/17 16:59 Nitroglycerin (Nitrostat Tab) 0.4 mg UD PRN SL 12/25/16 17:00 01/24/17 16:59 Glucose (Glucose 40% Gel) 15-30 GRAMS 15 GRAMS... UD PRN PO 12/25/16 17:15 01/24/17 17:14 Glucose (Glucose Chew Tab) 4-8 Tablets 4 Tabl... UD PRN PO 12/25/16 17:15 01/24/17 17:14 Dextrose (Dextrose 50% 50ML Syringe) 25-50ML OF 50% DW IV FOR... UD PRN IV 12/25/16 17:15 01/24/17 17:14 12/28/16 04:05 25 ML Glucagon (Glucagon Inj) 1 mg UD PRN SQ 12/25/16 17:15 01/24/17 17:14 Amiodarone HCl (Cordarone Tab) 100 mg DAILY PO 12/26/16 09:00 01/25/17 08:59 12/31/16 07:53 100 MG Ascorbic Acid (Vitamin C Tab) 500 mg DAILY PO 12/26/16 09:00 01/25/17 08:59 12/31/16 07:52 500 MG Cholecalciferol (Vitamin D Tab) 1,000 inter.unit QAM PO 12/26/16 09:00 01/25/17 08:59 12/31/16 07:52 1,000 INTER.UNIT Codeine Phosphate/ Guaifenesin (Robitussin-AC Sugar Free Syrup) 5 ml Q4 PRN PO 12/25/16 17:45 01/24/17 17:44 12/25/16 22:10 5 ML Metoprolol Succinate (Toprol Xl Tab) 12.5 mg DAILY@1200 PO 12/26/16 12:00 01/25/17 11:59 12/31/16 11:37 12.5 MG Pantoprazole Sodium (Protonix Tab) 40 mg DAILY@1200 PO 12/26/16 12:00 01/25/17 11:59 12/31/16 11:36 40 MG Ranitidine HCl (zANTac TAB) 150 mg BID PO 12/25/16 21:00 01/24/17 20:59 12/31/16 07:53 150 MG Trazodone HCl (Desyrel Tab) 25 mg QDD PO 12/25/16 18:00 01/24/17 17:59 8/26/17 17:02 25 MG Trazodone HCl (Desyrel Tab) 50 mg HS PO 12/25/16 21:00 01/24/17 20:59 12/30/16 21:39 50 MG Multivitamins/ Minerals (Multivitamin W/ Minerals Tab) 1 tab DAILY PO 12/26/16 09:00 01/25/17 08:59 12/31/16 07:53 1 TAB Albuterol/ Ipratropium (Duoneb) 3 ml QIDR INH 12/25/16 20:00 01/24/17 19:59 12/31/16 15:20 3 ML Albuterol/ Ipratropium (Duoneb) 3 ml Q2H PRN INH 12/25/16 18:30 01/24/17 18:29 Mupirocin (Bactroban 2% Oint) 1 appln BID EXT 12/26/16 09:00 01/25/17 08:59 12/31/16 08:00 1 APPLN Miscellaneous Information (Consult Glycemic Management Pharmacy) 1 ea UD PRN N/A 12/27/16 11:25 01/26/17 11:24 Insulin Aspart (novoLOG ASPART) SLIDING SCALE ACHS SC 12/28/16 07:00 01/27/17 06:59 12/31/16 11:36 4 UNITS Insulin Glargine (Lantus Solostar Pen) See Protocol Text BID SC 12/28/16 21:00 01/26/17 12:29 12/31/16 07:58 7 UNITS Linezolid (Zyvox Tab) 600 mg BID PO 12/29/16 11:30 01/05/17 11:29 12/31/16 07:51 600 MG Prednisone (PredniSONE TAB) 20 mg DAILY PO 12/30/16 09:00 01/27/17 08:59 12/31/16 07:53 20 MG Phenazopyridine HCl (Pyridium Tab) 100 mg TID PO 12/30/16 14:00 01/29/17 13:59 12/31/16 07:51 100 MG Oxycodone/ Acetaminophen (Percocet 5-325mg Tab) 1 tab Q4H PRN PO 12/30/16 17:45 01/08/17 17:44 12/30/16 21:39 1 TAB
[2016-12-31] MEDS: TRAZODONE HCL 50 MG TAB PO SCH ×2 (16:24→21:18)
--- NOTE | 2016-12-31 17:30 | Progress Note ---
Medicine Progress Note Date & Time of Visit: Dec 31, 2016 at 17:25. Subjective patient seen resting in bed, comfortable family at bedside still has left shoulder pain denies chest pain, dyspnea no other symptoms Objective Last 8 Hrs Date Time Temp Pulse Resp B/P (MAP) Pulse Ox O2 Delivery O2 Flow Rate FiO2 12/31/16 16:00 36.5 76 14 112/60 (77) 94 Room Air 12/31/16 15:20 84 12 95 Room Air 12/31/16 12:17 Room Air 12/31/16 11:52 36.5 81 18 138/69 (92) 96 Room Air 12/31/16 11:36 85 18 96 Room Air Physical Exam: General- oriented x 3, not in distress, speaks in sentences with no effort Lungs- decreased breath sounds left base, clear on the right, no wheezing Heart- regular rhythm; no murmur, normal rate Abdomen- normal bowel sounds, soft, nontender Extremities- no pretibial edema, no calf tenderness left forearm/upper arm edema, no warmth/tenderness/swelling Neuro- alert, oriented x 3 no gross focal neuro deficits Skin- warm & dry Laboratory Results: Last 24 Hours Test 12/30/16 20:09 12/30/16 20:10 12/30/16 20:37 12/31/16 00:36 Bedside Glucose 76 mg/dl 69 mg/dl 100 mg/dl 130 mg/dl Test 12/31/16 06:49 12/31/16 11:26 12/31/16 16:24 Bedside Glucose 121 mg/dl 115 mg/dl 176 mg/dl Assessment & Plan 86 year old male with history of COPD on O2 at , CAD, CHF, DM, Paroxysmal A fib presenting with shortness of breath. COMMUNITY ACQUIRED PNEUMONIA Presented with worsening SOB and cough Sputum cx on 11/09/16 grew MRSA- sensitive to bactrim, vanco, gentamin, rifampin Failed outpatient Abx treatment with Septra, Levaquin and Keflex CXR on admission showed left upper lobe opacity- favors pneumonia WBC now normalized off oxygen Blood cultures: negative Sputum culture: normal alex Urine culture: negative Day 4 Zosyn and vancomycin IV-->transitioned to Linezolid Day 3 Prednisone taper Nebs q6h -- Speech Therapy consulted: * 1. Moist dental soft diet 2. Aspiration precautions: straws okay 3. 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 * There is mild concentric left ventricular hypertrophy. * The base inferior and posterior wall are hypokinetic, otherwise, normal wall motion. * Grade I diastolic dysfunction, (abnormal relaxation pattern). * Aortic valve sclerosis moderate, without significant aortic valvular stenosis. * Small PFO by color doppler interrogation * Compared to prior study, there is no significant change. CHRONIC SYSTOLIC CHF EF 45% on 02/2014 echo Repeat Echo showed EF btw 55 to 60% -- euvolemic PAROXYSMAL ATRIAL FIBRILLATION rate controlled Continue amiodarone and metoprolol ANEMIA Hbg 11 at baseline, was in 7's approx 2 weeks ago per family- Hbg 8 Continue PO iron supplement Monitor CBC CKD STAGE III Creatinine is at baseline Stable DM TYPE 2 Diet controlled in past Hba1c 7.1 on 12/21 Novolog sliding scale coverage -- Pharmacy Glycemic Control consult DVT PROPHYLAXIS SCD's due to hemoptysis, anemia CODE STATUS DNR/DNI DISPOSITION pending Palliative Care consult placed Follows with Dr. Tyler for primary care patient prefers to go home when medically stable Current Inpatient Medications: Current Inpatient Medications Medications (Trade) Dose Ordered Sig/Bruno Route Start Time Stop Time Status Last Admin Dose Admin Acetaminophen (Tylenol Tab) 650 mg Q4H PRN PO 12/25/16 17:00 01/24/17 16:59 12/31/16 11:29 650 MG Ondansetron HCl (Zofran Inj) 4 mg Q6H PRN IV 12/25/16 17:00 01/24/17 16:59 Nitroglycerin (Nitrostat Tab) 0.4 mg UD PRN SL 12/25/16 17:00 01/24/17 16:59 Glucose (Glucose 40% Gel) 15-30 GRAMS 15 GRAMS... UD PRN PO 12/25/16 17:15 01/24/17 17:14 Glucose (Glucose Chew Tab) 4-8 Tablets 4 Tabl... UD PRN PO 12/25/16 17:15 01/24/17 17:14 Dextrose (Dextrose 50% 50ML Syringe) 25-50ML OF 50% DW IV FOR... UD PRN IV 12/25/16 17:15 01/24/17 17:14 12/28/16 04:05 25 ML Glucagon (Glucagon Inj) 1 mg UD PRN SQ 12/25/16 17:15 01/24/17 17:14 Amiodarone HCl (Cordarone Tab) 100 mg DAILY PO 12/26/16 09:00 01/25/17 08:59 12/31/16 07:53 100 MG Ascorbic Acid (Vitamin C Tab) 500 mg DAILY PO 12/26/16 09:00 01/25/17 08:59 12/31/16 07:52 500 MG Cholecalciferol (Vitamin D Tab) 1,000 inter.unit QAM PO 12/26/16 09:00 01/25/17 08:59 12/31/16 07:52 1,000 INTER.UNIT Codeine Phosphate/ Guaifenesin (Robitussin-AC Sugar Free Syrup) 5 ml Q4 PRN PO 12/25/16 17:45 01/24/17 17:44 12/25/16 22:10 5 ML Metoprolol Succinate (Toprol Xl Tab) 12.5 mg DAILY@1200 PO 12/26/16 12:00 01/25/17 11:59 12/31/16 11:37 12.5 MG Pantoprazole Sodium (Protonix Tab) 40 mg DAILY@1200 PO 12/26/16 12:00 01/25/17 11:59 12/31/16 11:36 40 MG Ranitidine HCl (zANTac TAB) 150 mg BID PO 12/25/16 21:00 01/24/17 20:59 12/31/16 07:53 150 MG Trazodone HCl (Desyrel Tab) 25 mg QDD PO 12/25/16 18:00 01/24/17 17:59 12/31/16 16:24 25 MG Trazodone HCl (Desyrel Tab) 50 mg HS PO 12/25/16 21:00 01/24/17 20:59 12/30/16 21:39 50 MG Multivitamins/ Minerals (Multivitamin W/ Minerals Tab) 1 tab DAILY PO 12/26/16 09:00 01/25/17 08:59 12/31/16 07:53 1 TAB Albuterol/ Ipratropium (Duoneb) 3 ml QIDR INH 12/25/16 20:00 01/24/17 19:59 12/31/16 15:20 3 ML Albuterol/ Ipratropium (Duoneb) 3 ml Q2H PRN INH 12/25/16 18:30 01/24/17 18:29 Mupirocin (Bactroban 2% Oint) 1 appln BID EXT 12/26/16 09:00 01/25/17 08:59 12/31/16 08:00 1 APPLN Miscellaneous Information (Consult Glycemic Management Pharmacy) 1 ea UD PRN N/A 12/27/16 11:25 01/26/17 11:24 Insulin Aspart (novoLOG ASPART) SLIDING SCALE ACHS SC 12/28/16 07:00 01/27/17 06:59 12/31/16 16:53 8 UNITS Insulin Glargine (Lantus Solostar Pen) See Protocol Text BID SC 12/28/16 21:00 01/26/17 12:29 12/31/16 07:58 7 UNITS Linezolid (Zyvox Tab) 600 mg BID PO 12/29/16 11:30 01/05/17 11:29 12/31/16 07:51 600 MG Prednisone (PredniSONE TAB) 20 mg DAILY PO 12/30/16 09:00 01/27/17 08:59 12/31/16 07:53 20 MG Phenazopyridine HCl (Pyridium Tab) 100 mg TID PO 12/30/16 14:00 9/25/17 13:59 12/31/16 16:24 100 MG Oxycodone/ Acetaminophen (Percocet 5-325mg Tab) 1 tab Q4H PRN PO 12/30/16 17:45 01/08/17 17:44 12/30/16 21:39 1 TAB Lidocaine (Lidoderm Patch 5%) 1 patch QAM TD 01/01/17 09:00 01/31/17 08:59 Miscellaneous (Remove Lidoderm Patch) 1 ea DAILY@21 N/A 12/31/16 21:00 01/30/17 20:59 Loperamide HCl (Imodium Cap) 2 mg DAILY PRN PO 12/31/16 16:30 01/30/17 16:29
[2016-12-31] MEDS ORDERED: SODIUM CHLORIDE 0.9% 1000ML 1,000 ML IV SCH (19:00)
[2016-12-31] MEDS: LOPERAMIDE HCL 2 MG CAP PO PRN (19:57)
[2016-12-31] MEDS: OXYCODONE/ACETAMINOPHEN 5-325 TAB PO PRN (21:18)
[2017-01-01] VITALS (11 sets, daily range): BP systolic 103–147; BP diastolic 50–82; PULSE 71–84; TEMP 36.2–36.9; O2SAT 93–96
[2017-01-01] MEDS: OXYCODONE/ACETAMINOPHEN 5-325 TAB PO PRN ×4 (04:15→19:54)
[2017-01-01 06:33] LABS: BASO % 0.1 %; BASO ABS # 0.01 K/uL (0-0.2); COMPLETE YES; EOS % 0.2 %; HEMATOCRIT 29.4 % (42-52); IG% 0.3 %; LYMPH % 4.5 %; LYMPH ABS # 0.72 K/uL (1.2-3.4); MEAN CELL VOLUME 94.5 fL (80-100); MEAN CORPUSCULAR HEMOGLOBIN 29.3 pg (25-34); MEAN PLATELET VOLUME 8.4 fL (7.4-10.4); MONO % 7.1 %; NEUT % 87.8 %; PLATELET COUNT 255 K/uL (130-400); RED BLOOD COUNT 3.11 M/uL (4.7-6.1); WHITE BLOOD COUNT 15.96 K/uL (4.8-10.8)
[2017-01-01] MEDS: ALBUT/IPRATROP 3MG/0.5MG NEB 3 ML VIAL INH SCH ×4 (06:54→20:36)
[2017-01-01 07:12] LABS: BUN/CREATININE RATIO 25.4 (10-20); CALCIUM 8.4 mg/dl (8.5-10.1); CREATININE 1.7 mg/dl (0.60-1.40); POTASSIUM 4.5 mmol/L (3.5-5.1)
[2017-01-01] MEDS: AMIODARONE 200 MG TAB PO SCH (08:25)
[2017-01-01] MEDS: MUPIROCIN 2% OINT 22 GM TUBE EXT SCH ×2 (08:25→21:12)
[2017-01-01] MEDS: CEROVITE ADV FORMULA TAB PO SCH (08:25)
[2017-01-01] MEDS: PHENAZOPYRIDINE HCL 100 MG TAB PO SCH ×3 (08:26→21:11)
[2017-01-01] MEDS: RANITIDINE HCL 150 MG TAB PO SCH ×2 (08:26→21:11)
[2017-01-01] MEDS: ASCORBIC ACID 500 MG TAB PO SCH (08:26)
[2017-01-01] MEDS: CHOLECALCIFEROL 1000 INTER.UNIT TAB PO SCH (08:26)
[2017-01-01] MEDS: LINEZOLID 600 MG TAB PO SCH ×2 (08:27→21:11)
[2017-01-01] MEDS: LIDODERM (LIDOCAINE) PATCH 5% TD SCH (08:31)
[2017-01-01] MEDS: INSULIN ASPART 100 UNITS/ML 3 ML PEN SC SCH ×4 (08:39→21:14)
[2017-01-01] MEDS: INSULIN GLARGINE SOLOSTAR 100 UNITS/ML 3 ML PEN SC SCH ×2 (08:40→21:13)
--- NOTE | 2017-01-01 11:19 | Progress Note ---
Subjective Date of Service: Jan 01, 2017. Subjective Pt evaluation today including: conversation w/ patient, chart review, lab review Voiding: no voiding problems 86 yo male with bladder cancer and gross hematuria. Hematuria has resolved. Continues to c/o dysuria today. Oxybutynin discontinued, and the pt was placed on Pyridium again with no improvement thus far. He also c/o neck pain. He is pending a fentanyl patch placement for pain control. Planning for comfort care. Problem List Medical Problems: (1) Acute urinary retention Status: Acute (2) COPD (chronic obstructive pulmonary disease) Status: Acute (3) Hematuria Status: Acute (4) Hemoptysis Status: Acute (5) Hypoxia Status: Acute (6) Shortness of breath Status: Acute Review of Systems Constitutional: No fever, No chills Respiratory: No shortness of breath Cardiac: No chest pain Abdomen: No pain, No nausea, No vomiting Musculoskeletal: + problem reported (neck pain ) Male : + dysuria, No hematuria Heme: No abnormal bleeding/bruising Objective Vital Signs Date Time Temp Pulse Resp B/P (MAP) Pulse Ox O2 Delivery O2 Flow Rate FiO2 01/01/17 08:00 Room Air 01/01/17 07:30 36.4 84 20 147/82 (103) 93 Room Air 01/01/17 06:55 74 16 95 Room Air 01/01/17 04:07 36.9 73 20 115/59 (77) 93 Room Air 01/01/17 04:00 Room Air 01/01/17 00:36 36.9 77 17 125/67 (86) 94 Room Air 01/01/17 00:02 Room Air 12/31/16 20:33 87 12 96 Room Air 12/31/16 20:03 Room Air 12/31/16 19:30 36.5 76 18 141/85 (103) 95 Room Air 12/31/16 16:00 Room Air 12/31/16 16:00 36.5 76 14 112/60 (77) 94 Room Air 12/31/16 15:20 84 12 95 Room Air 12/31/16 12:17 Room Air 12/31/16 11:52 36.5 81 18 138/69 (92) 96 Room Air 12/31/16 11:36 85 18 96 Room Air Physical Exam General Appearance: no apparent distress Eyes: normal inspection ENT: hearing grossly normal Neck: no JVD Respiratory/Chest: no respiratory distress, no accessory muscle use Cardiovascular: no JVD Extremities: normal inspection Neurologic/Psychiatric: alert, normal mood/affect, oriented x 3 Skin: normal color Laboratory Results Last 24 Hours Test 12/31/16 11:26 12/31/16 16:24 12/31/16 20:02 01/01/17 06:04 Bedside Glucose 115 mg/dl 176 mg/dl 170 mg/dl White Blood Count 15.96 K/uL Red Blood Count 3.11 M/uL Hemoglobin 9.1 g/dL Hematocrit 29.4 % Mean Corpuscular Volume 94.5 fL Mean Corpuscular Hemoglobin 29.3 pg Mean Corpuscular Hemoglobin Concent 31.0 g/dl Platelet Count 255 K/uL Mean Platelet Volume 8.4 fL Neutrophils (%) (Auto) 87.8 % Lymphocytes (%) (Auto) 4.5 % Monocytes (%) (Auto) 7.1 % Eosinophils (%) (Auto) 0.2 % Basophils (%) (Auto) 0.1 % Neutrophils # (Auto) 14.03 K/uL Lymphocytes # (Auto) 0.72 K/uL Monocytes # (Auto) 1.13 K/uL Eosinophils # (Auto) 0.03 K/uL Basophils # (Auto) 0.01 K/uL RDW Standard Deviation 50.5 fL RDW Coefficient of Variation 14.7 % Immature Granulocyte % (Auto) 0.3 % Immature Granulocyte # (Auto) 0.04 K/uL Test 01/01/17 06:07 01/01/17 06:16 Sodium Level 137 mmol/L Potassium Level 4.5 mmol/L Chloride Level 103 mmol/L Carbon Dioxide Level 27 mmol/L Anion Gap 7.0 mmol/L Blood Urea Nitrogen 43 mg/dl Creatinine 1.70 mg/dl Est Creatinine Clear Calc Drug Dose 24.9 ml/min Estimated GFR () 40.8 Estimated GFR (Non- 35.2 BUN/Creatinine Ratio 25.4 Random Glucose 165 mg/dl Calcium Level 8.4 mg/dl Bedside Glucose 158 mg/dl Assessment and Plan A/P: Bladder cancer, hematuria, dysuria AFVSS. Hematuria resolved. Pt with persistent dysuria despite oxybutynin and Pyridium. Could consider trying Uribel as an outpatient if dysuria persists. Would also recommend hydration, and seeing how his fentanyl patch works first. Primarily planning for comfort care measures only at this point. Will avoid cysto. Monitor for UR, or worsening hematuria. Will continue to follow along with primary service. Will plan for outpatient f/u in 2 weeks if able.
--- NOTE | 2017-01-01 12:02 | Palliative Care Consultation ---
Consultation Date of Consultation: Jan 01, 2017. Requesting Physician: Dr. Lynn Attending Physician: Dr. Lynn Reason for Consultation: Goals of care History of Present Illness This 86 year old male patient with PMH lung mass, BPH, high-grade bladder carcinoma, CHF, CKD III, COPD, GA, CABG x4 vessels in 1989, cardiac stenting, EF 55-60%, and others listed below presented to the ED about a week ago with c/ o productive cough, hemoptysis, and was found to be hypotensive by home health. Patient was experiencing weakness, weight loss and had a fall prior to coming in as well. In the past, patient declined any work-up for the RUL lung mass, he also declines any intervention for the bladder cancer. He is followed by urology and pulmonology here in the hospital and has expressed those wishes to them as well. He is being treated for MEGAN pneumonia with abx, ID was following for history of MRSA and possible MRSA pneumonia. Patient has expressed his wishes to go home and be comfortable. Palliative care consulted. I met with patient, Luz, and son Carlos Alberto in room 210. Patient is hard of hearing, but awake, alert and oriented x4. C/o pain in neck with some movements and some positions while in bed. Also having constant left shoulder pain. Has dysuria and hematuria, but declines Santoyo placement as he is still able to urinate. Diarrhea is improving, has no N/V. Patient confirmed that his goal is to be comfortable, stay out of the hospital and does not want any further workup for his conditions. His family is supportive-- all are requesting for patient to go home with hospice. See plan below. Past Medical/Surgical History Medical History: Anemia BPH CAD CHF Chronic obstructive pulmonary disease Chronic respiratory failure with hypoxia CKD (chronic kidney disease), stage III DM type 2 (diabetes mellitus, type 2) Hematuria History of left heart catheterization (LHC) HTN (hypertension) Hyperlipidemia Lung tumor Myocardial infarction Surgical Problems: Carotid endarterectomy Knee surgery Bowel resection Carpal tunnel surgery Cardiac stent CABG x 4 1989 Social History Smoking Status: Former Smoker (quit 3 years ago, prior 1 ppd x 75 years) History of Alcohol Use: No Marital Status: Occupation Status: retired Review of Systems Constitutional: + weight loss, + weakness ENT: No trouble swallowing Respiratory: + cough, + sputum (yellow), + dyspnea on exertion, No wheezing, No shortness of breath Cardiac: No chest pain, No edema Abdomen: + diarrhea (improving), No pain, No nausea, No vomiting Musculoskeletal: + swelling (left arm) Male : + dysuria, + hematuria Psychiatric: No depression symptoms, No anxiety Allergies Coded Allergies: Adhesives (Verified Allergy, Intermediate, RASH, 12/25/16) Medications Current Inpatient Medications Medications (Trade) Dose Ordered Sig/Bruno Route Start Time Stop Time Status Last Admin Dose Admin Acetaminophen (Tylenol Tab) 650 mg Q4H PRN PO 12/25/16 17:00 01/24/17 16:59 12/31/16 11:29 650 MG Ondansetron HCl (Zofran Inj) 4 mg Q6H PRN IV 12/25/16 17:00 01/24/17 16:59 Nitroglycerin (Nitrostat Tab) 0.4 mg UD PRN SL 12/25/16 17:00 01/24/17 16:59 Glucose (Glucose 40% Gel) 15-30 GRAMS 15 GRAMS... UD PRN PO 12/25/16 17:15 01/24/17 17:14 Glucose (Glucose Chew Tab) 4-8 Tablets 4 Tabl... UD PRN PO 12/25/16 17:15 01/24/17 17:14 Dextrose (Dextrose 50% 50ML Syringe) 25-50ML OF 50% DW IV FOR... UD PRN IV 12/25/16 17:15 01/24/17 17:14 12/28/16 04:05 25 ML Glucagon (Glucagon Inj) 1 mg UD PRN SQ 12/25/16 17:15 01/24/17 17:14 Amiodarone HCl (Cordarone Tab) 100 mg DAILY PO 12/26/16 09:00 01/25/17 08:59 01/01/17 08:25 100 MG Ascorbic Acid (Vitamin C Tab) 500 mg DAILY PO 12/26/16 09:00 01/25/17 08:59 01/01/17 08:26 500 MG Cholecalciferol (Vitamin D Tab) 1,000 inter.unit QAM PO 12/26/16 09:00 01/25/17 08:59 01/01/17 08:26 1,000 INTER.UNIT Codeine Phosphate/ Guaifenesin (Robitussin-AC Sugar Free Syrup) 5 ml Q4 PRN PO 12/25/16 17:45 01/24/17 17:44 12/25/16 22:10 5 ML Metoprolol Succinate (Toprol Xl Tab) 12.5 mg DAILY@1200 PO 12/26/16 12:00 01/25/17 11:59 12/31/16 11:37 12.5 MG Pantoprazole Sodium (Protonix Tab) 40 mg DAILY@1200 PO 12/26/16 12:00 01/25/17 11:59 12/31/16 11:36 40 MG Ranitidine HCl (zANTac TAB) 150 mg BID PO 12/25/16 21:00 01/24/17 20:59 01/01/17 08:26 150 MG Trazodone HCl (Desyrel Tab) 25 mg QDD PO 12/25/16 18:00 01/24/17 17:59 12/31/16 16:24 25 MG Trazodone HCl (Desyrel Tab) 50 mg HS PO 12/25/16 21:00 01/24/17 20:59 12/31/16 21:18 50 MG Multivitamins/ Minerals (Multivitamin W/ Minerals Tab) 1 tab DAILY PO 12/26/16 09:00 01/25/17 08:59 01/01/17 08:25 1 TAB Albuterol/ Ipratropium (Duoneb) 3 ml QIDR INH 12/25/16 20:00 01/24/17 19:59 01/01/17 06:54 3 ML Albuterol/ Ipratropium (Duoneb) 3 ml Q2H PRN INH 12/25/16 18:30 01/24/17 18:29 Mupirocin (Bactroban 2% Oint) 1 appln BID EXT 12/26/16 09:00 01/25/17 08:59 01/01/17 08:25 1 APPLN Miscellaneous Information (Consult Glycemic Management Pharmacy) 1 ea UD PRN N/A 12/27/16 11:25 01/26/17 11:24 Insulin Aspart (novoLOG ASPART) SLIDING SCALE ACHS SC 12/28/16 07:00 01/27/17 06:59 01/01/17 08:39 5 UNITS Insulin Glargine (Lantus Solostar Pen) See Protocol Text BID SC 12/28/16 21:00 01/26/17 12:29 01/01/17 08:40 10 UNITS Linezolid (Zyvox Tab) 600 mg BID PO 12/29/16 11:30 01/05/17 11:29 01/01/17 08:27 600 MG Prednisone (PredniSONE TAB) 20 mg DAILY PO 12/30/16 09:00 01/27/17 08:59 01/01/17 08:26 20 MG Phenazopyridine HCl (Pyridium Tab) 100 mg TID PO 12/30/16 14:00 01/29/17 13:59 01/01/17 08:26 100 MG Oxycodone/ Acetaminophen (Percocet 5-325mg Tab) 1 tab Q4H PRN PO 12/30/16 17:45 01/08/17 17:44 01/01/17 08:34 1 TAB Lidocaine (Lidoderm Patch 5%) 1 patch QAM TD 01/01/17 09:00 01/31/17 08:59 Miscellaneous (Remove Lidoderm Patch) 1 ea DAILY@21 N/A 12/31/16 21:00 01/30/17 20:59 01/01/17 00:29 1 EA Loperamide HCl (Imodium Cap) 2 mg DAILY PRN PO 12/31/16 16:30 01/30/17 16:29 12/31/16 19:57 2 MG Sodium Chloride 1,000 ml @ 60 mls/hr [id number] IV 12/31/16 19:00 01/01/17 11:39 12/31/16 19:57 60 MLS/HR Physical Exam Date Time Temp Pulse Resp B/P (MAP) Pulse Ox O2 Delivery O2 Flow Rate FiO2 01/01/17 08:00 Room Air 01/01/17 07:30 36.4 84 20 147/82 (103) 93 Room Air 01/01/17 06:55 74 16 95 Room Air 01/01/17 04:07 36.9 73 20 115/59 (77) 93 Room Air 01/01/17 04:00 Room Air 01/01/17 00:36 36.9 77 17 125/67 (86) 94 Room Air 01/01/17 00:02 Room Air 12/31/16 20:33 87 12 96 Room Air 12/31/16 20:03 Room Air 12/31/16 19:30 36.5 76 18 141/85 (103) 95 Room Air 12/31/16 16:00 Room Air 12/31/16 16:00 36.5 76 14 112/60 (77) 94 Room Air 12/31/16 15:20 84 12 95 Room Air 12/31/16 12:17 Room Air 12/31/16 11:52 36.5 81 18 138/69 (92) 96 Room Air 12/31/16 11:36 85 18 96 Room Air General Appearance: no apparent distress, + thin ENT: + pertinent finding (hard of hearing) Neck: supple, no JVD Respiratory: no respiratory distress, no accessory muscle use, + decreased breath sounds Cardiovascular: regular rate, rhythm, no edema, + normal peripheral pulses Abdomen: normal bowel sounds, non tender, soft Musculoskeletal: pertinent finding (lymphedema to left arm) Neurologic/Psychiatric: alert, normal mood/affect, oriented x 3 Skin: normal color Laboratory Results Last 24 Hours Test 12/31/16 16:24 12/31/16 20:02 01/01/17 06:04 01/01/17 06:07 Bedside Glucose 176 mg/dl 170 mg/dl White Blood Count 15.96 K/uL Red Blood Count 3.11 M/uL Hemoglobin 9.1 g/dL Hematocrit 29.4 % Mean Corpuscular Volume 94.5 fL Mean Corpuscular Hemoglobin 29.3 pg Mean Corpuscular Hemoglobin Concent 31.0 g/dl Platelet Count 255 K/uL Mean Platelet Volume 8.4 fL Neutrophils (%) (Auto) 87.8 % Lymphocytes (%) (Auto) 4.5 % Monocytes (%) (Auto) 7.1 % Eosinophils (%) (Auto) 0.2 % Basophils (%) (Auto) 0.1 % Neutrophils # (Auto) 14.03 K/uL Lymphocytes # (Auto) 0.72 K/uL Monocytes # (Auto) 1.13 K/uL Eosinophils # (Auto) 0.03 K/uL Basophils # (Auto) 0.01 K/uL RDW Standard Deviation 50.5 fL RDW Coefficient of Variation 14.7 % Immature Granulocyte % (Auto) 0.3 % Immature Granulocyte # (Auto) 0.04 K/uL Sodium Level 137 mmol/L Potassium Level 4.5 mmol/L Chloride Level 103 mmol/L Carbon Dioxide Level 27 mmol/L Anion Gap 7.0 mmol/L Blood Urea Nitrogen 43 mg/dl Creatinine 1.70 mg/dl Est Creatinine Clear Calc Drug Dose 24.9 ml/min Estimated GFR () 40.8 Estimated GFR (Non- 35.2 BUN/Creatinine Ratio 25.4 Random Glucose 165 mg/dl Calcium Level 8.4 mg/dl Test 01/01/17 06:16 Bedside Glucose 158 mg/dl Assessment & Plan Palliative Performance Scale: 40 % Problem list: Pain, neck and dysuria Hematuria, dysuria- urology following Diarrhea Left arm edema- appears to be lymphedema High-grade bladder cancer- patient declines intervention Pulmonary mass concerning for neoplasm- patient declines any further workup BPH Pneumonia- antibiotics Failure to thrive- weight loss, weakness, falls Goals of care (Z51.5) Palliative care recs: discussed with patient, Luz, son Carlos Alberto, and Dr. Lynn -Patient's goal is for comfort and end-of-life care. He is requesting home hospice, family is in agreement. -Lives at home with son and who are there 27/11. -Recommend fentanyl patch 12mcg/hr TD Q72h. -Would discontinue percocet and order Roxanol 5mg PO Q3h PRN pain or SOB. -Continue home oxygen. -Continue PO abx at home -Continue home meds except protonix and vitamins. -Continue Imodium- diarrhea is improving. -Has nebulizer/treatments at home. -POLST form completed as follows: DNR, comfort measures only, abx with comfort as the goal, no artificial hydration/nutrition. Thank you kindly for this consult. Please contact me with any further palliative care needs.
[2017-01-01] MEDS: PANTOprazole SOD 40 MG TAB PO SCH (12:21)
[2017-01-01] MEDS: METOPROLOL SUCC 25MG EXT REL TAB PO SCH (12:21)
--- NOTE | 2017-01-01 14:06 | Pharmacy Progress Note ---
Glycemic Control Progress Note Date of Service Jan 01, 2017. Scope Glycemic Pharmacist consulted for glycemic control to write orders per [facility] inpatient glycemic control protocol. Objective Accuchecks BSG (last 24hrs): Test 12/31/16 16:24 12/31/16 20:02 01/01/17 06:07 01/01/17 06:16 Bedside Glucose 176 mg/dl (70-99) 170 mg/dl (70-99) 158 mg/dl (70-99) Random Glucose 165 mg/dl (70-99) Test 01/01/17 11:53 Bedside Glucose 160 mg/dl (70-99) HbA1c: Test 12/26/16 05:38 Hemoglobin A1c 7.1 % (4.5-5.6) H Recent Pertinent Medications The patient is currently receiving: * Basal insulin: Lantus 7 units SQ BID - hold if BSG less than 110 * Correctional Insulin: Novolog Correction per scale ACHS Goal Range: Low 110 mg/dL - High 140 mg/dL Correction Factor: 35 mg/dL/unit * Prandial insulin: Per carb ratio of 1 unit per 12 grams CHO consumed * Oral Agents: None currently Outpatient Anti-Diabetic Meds N/A Assessment & Plan ASSESSMENT: 01/01/17: * BSGs have ranged 121-176 over the last 24 hours * All BSGs have been at goal with the exception of the fasting AM BSG today * Fast BSG 158 this AM with 14 units of Lantus on board. Given daily insulin requirement of ~33 units yesterday and tolerance of higher basal insulin doses previously, will adjust the dose upwards today. Will add a dosing scale to the order to less risk of hypoglycemia * Will adjust the CR ratio dose slightly today based upon new basal insulin dose and estimated daily insulin requirement of 30-40 units while tolerating a diet on the current steroid dose PLAN FOR INPATIENT GLYCEMIC CONTROL: * Continuing Lantus SQ BID: * BSG less than 110mg/dL: give 5 units * BSG 110mg/dL or greater: give 10 units * Continue correction factor 35 mg/dl/unit * Change carb ratio to 1 unit per 10 grams CHO consumed * Continue goal range of Low 110 mg/dL - High 140 mg/dL * Please note that the plan above was derived based on current level of insulin resistance and hospital stress. These recommendations are appropriate for inpatient admission only. Plan of care upon discharge will need to be reassessed to avoid potential outpatient hypo/hyperglycemia. Thank you.
[2017-01-01] MEDS: TRAZODONE HCL 50 MG TAB PO SCH ×2 (16:08→21:11)
[2017-01-01] MEDS ORDERED: FENTANYL 12 MCG/HR TDSY TD SCH (18:00)
--- NOTE | 2017-01-01 21:17 | Progress Note ---
Medicine Progress Note Date & Time of Visit: Jan 01, 2017 at 21:13. Subjective seen resting in bed, comfortable states pain about the same, relieved by nucynta denies dyspnea, cough diarrhea improving still has dysuria no other symptoms Objective Last 8 Hrs Date Time Temp Pulse Resp B/P (MAP) Pulse Ox O2 Delivery O2 Flow Rate FiO2 01/01/17 20:37 74 18 94 Room Air 01/01/17 20:28 36.7 75 18 103/50 (67) 94 Room Air 01/01/17 16:20 36.5 72 18 129/70 (89) 93 01/01/17 16:00 Room Air 01/01/17 15:25 71 18 94 Room Air Physical Exam: General- oriented x 3, not in distress, speaks in sentences with no effort Lungs- decreased breath sounds left base, clear on the right, no wheezes Heart- regular rhythm; no murmur, normal rate Abdomen- normal bowel sounds, soft, nontender Extremities- no pretibial edema, no calf tenderness left forearm/upper arm edema, no warmth/tenderness/swelling Neuro- alert, oriented x 3 no gross focal neuro deficits Skin- warm & dry Laboratory Results: Last 24 Hours Test 01/01/17 06:04 01/01/17 06:07 01/01/17 06:16 01/01/17 11:53 White Blood Count 15.96 K/uL Red Blood Count 3.11 M/uL Hemoglobin 9.1 g/dL Hematocrit 29.4 % Mean Corpuscular Volume 94.5 fL Mean Corpuscular Hemoglobin 29.3 pg Mean Corpuscular Hemoglobin Concent 31.0 g/dl Platelet Count 255 K/uL Mean Platelet Volume 8.4 fL Neutrophils (%) (Auto) 87.8 % Lymphocytes (%) (Auto) 4.5 % Monocytes (%) (Auto) 7.1 % Eosinophils (%) (Auto) 0.2 % Basophils (%) (Auto) 0.1 % Neutrophils # (Auto) 14.03 K/uL Lymphocytes # (Auto) 0.72 K/uL Monocytes # (Auto) 1.13 K/uL Eosinophils # (Auto) 0.03 K/uL Basophils # (Auto) 0.01 K/uL RDW Standard Deviation 50.5 fL RDW Coefficient of Variation 14.7 % Immature Granulocyte % (Auto) 0.3 % Immature Granulocyte # (Auto) 0.04 K/uL Sodium Level 137 mmol/L Potassium Level 4.5 mmol/L Chloride Level 103 mmol/L Carbon Dioxide Level 27 mmol/L Anion Gap 7.0 mmol/L Blood Urea Nitrogen 43 mg/dl Creatinine 1.70 mg/dl Est Creatinine Clear Calc Drug Dose 24.9 ml/min Estimated GFR () 40.8 Estimated GFR (Non- 35.2 BUN/Creatinine Ratio 25.4 Random Glucose 165 mg/dl Calcium Level 8.4 mg/dl Bedside Glucose 158 mg/dl 160 mg/dl Test 01/01/17 16:43 01/01/17 20:34 Bedside Glucose 227 mg/dl 268 mg/dl Assessment & Plan 86 year old male with history of COPD on O2 at , CAD, CHF, DM, Paroxysmal A fib presenting with shortness of breath. COMMUNITY ACQUIRED PNEUMONIA Presented with worsening SOB and cough Sputum cx on 11/09/16 grew MRSA- sensitive to bactrim, vanco, gentamin, rifampin Failed outpatient Abx treatment with Septra, Levaquin and Keflex CXR on admission showed left upper lobe opacity- favors pneumonia WBC now normalized off oxygen Blood cultures: negative Sputum culture: normal alex Urine culture: negative Day 4 Zosyn and vancomycin IV-->transitioned to Linezolid Day 4 Prednisone taper Nebs q6h -- Speech Therapy consulted: * 1. Moist dental soft diet 2. Aspiration precautions: straws okay 3. 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 * There is mild concentric left ventricular hypertrophy. * The base inferior and posterior wall are hypokinetic, otherwise, normal wall motion. * Grade I diastolic dysfunction, (abnormal relaxation pattern). * Aortic valve sclerosis moderate, without significant aortic valvular stenosis. * Small PFO by color doppler interrogation * Compared to prior study, there is no significant change. CHRONIC SYSTOLIC CHF EF 45% on 02/2014 echo Repeat Echo showed EF btw 55 to 60% -- euvolemic PAROXYSMAL ATRIAL FIBRILLATION rate controlled Continue amiodarone and metoprolol ANEMIA Hbg 11 at baseline, was in 7's approx 2 weeks ago per family- Hbg 8 Continue PO iron supplement Monitor CBC CKD STAGE III Creatinine is at baseline Stable DM TYPE 2 Diet controlled in past Hba1c 7.1 on 12/21 Novolog sliding scale coverage -- Pharmacy Glycemic Control consult DVT PROPHYLAXIS SCD's due to hemoptysis, anemia CODE STATUS DNR/DNI DISPOSITION Palliative Care consult placed plan for d/c home tomorrow with hospice Follows with Dr. Tyler for primary care Current Inpatient Medications: Current Inpatient Medications Medications (Trade) Dose Ordered Sig/Bruno Route Start Time Stop Time Status Last Admin Dose Admin Acetaminophen (Tylenol Tab) 650 mg Q4H PRN PO 12/25/16 17:00 01/24/17 16:59 12/31/16 11:29 650 MG Ondansetron HCl (Zofran Inj) 4 mg Q6H PRN IV 12/25/16 17:00 01/24/17 16:59 Nitroglycerin (Nitrostat Tab) 0.4 mg UD PRN SL 12/25/16 17:00 01/24/17 16:59 Glucose (Glucose 40% Gel) 15-30 GRAMS 15 GRAMS... UD PRN PO 12/25/16 17:15 01/24/17 17:14 Glucose (Glucose Chew Tab) 4-8 Tablets 4 Tabl... UD PRN PO 12/25/16 17:15 01/24/17 17:14 Dextrose (Dextrose 50% 50ML Syringe) 25-50ML OF 50% DW IV FOR... UD PRN IV 12/25/16 17:15 01/24/17 17:14 12/28/16 04:05 25 ML Glucagon (Glucagon Inj) 1 mg UD PRN SQ 12/25/16 17:15 01/24/17 17:14 Amiodarone HCl (Cordarone Tab) 100 mg DAILY PO 12/26/16 09:00 01/25/17 08:59 01/01/17 08:25 100 MG Codeine Phosphate/ Guaifenesin (Robitussin-AC Sugar Free Syrup) 5 ml Q4 PRN PO 12/25/16 17:45 01/24/17 17:44 12/25/16 22:10 5 ML Metoprolol Succinate (Toprol Xl Tab) 12.5 mg DAILY@1200 PO 12/26/16 12:00 01/25/17 11:59 01/01/17 12:21 12.5 MG Ranitidine HCl (zANTac TAB) 150 mg BID PO 12/25/16 21:00 01/24/17 20:59 01/01/17 08:26 150 MG Trazodone HCl (Desyrel Tab) 25 mg QDD PO 12/25/16 18:00 01/24/17 17:59 01/01/17 16:08 25 MG Trazodone HCl (Desyrel Tab) 50 mg HS PO 12/25/16 21:00 01/24/17 20:59 12/31/16 21:18 50 MG Albuterol/ Ipratropium (Duoneb) 3 ml QIDR INH 12/25/16 20:00 01/24/17 19:59 01/01/17 20:36 3 ML Albuterol/ Ipratropium (Duoneb) 3 ml Q2H PRN INH 12/25/16 18:30 01/24/17 18:29 Mupirocin (Bactroban 2% Oint) 1 appln BID EXT 12/26/16 09:00 01/25/17 08:59 01/01/17 08:25 1 APPLN Miscellaneous Information (Consult Glycemic Management Pharmacy) 1 ea UD PRN N/A 12/27/16 11:25 01/26/17 11:24 Insulin Aspart (novoLOG ASPART) SLIDING SCALE ACHS SC 12/28/16 07:00 01/27/17 06:59 01/01/17 17:50 4 UNITS Insulin Glargine (Lantus Solostar Pen) See Protocol Text BID SC 12/28/16 21:00 01/26/17 12:29 01/01/17 08:40 10 UNITS Linezolid (Zyvox Tab) 600 mg BID PO 12/29/16 11:30 01/05/17 11:29 01/01/17 08:27 600 MG Phenazopyridine HCl (Pyridium Tab) 100 mg TID PO 12/30/16 14:00 01/29/17 13:59 01/01/17 16:08 100 MG Oxycodone/ Acetaminophen (Percocet 5-325mg Tab) 1 tab Q4H PRN PO 12/30/16 17:45 01/08/17 17:44 01/01/17 19:54 1 TAB Lidocaine (Lidoderm Patch 5%) 1 patch QAM TD 01/01/17 09:00 01/31/17 08:59 Miscellaneous (Remove Lidoderm Patch) 1 ea DAILY@21 N/A 12/31/16 21:00 01/30/17 20:59 01/01/17 00:29 1 EA Loperamide HCl (Imodium Cap) 2 mg DAILY PRN PO 12/31/16 16:30 01/30/17 16:29 12/31/16 19:57 2 MG Prednisone (PredniSONE TAB) 10 mg DAILY PO 01/02/17 09:00 01/27/17 08:59 Fentanyl (Duragesic Patch) 12 mcg Q3D@0900 TD 01/01/17 18:00 01/15/17 17:59 01/01/17 17:43 12 MCG Miscellaneous (Fentanyl Patch Remove & Waste) 1 ea Q3D@0859 N/A 01/04/17 08:59 02/03/17 08:58 Miscellaneous Information (Check Fentanyl Patch Placement) 1 ea QS N/A 01/02/17 00:00 02/01/17 00:00
[2017-01-02] MEDS: CHECK FENTANYL PATCH PLACEMENT SCH ×2 (00:06→07:35)
[2017-01-02 03:30] VITALS: BP 112/61; PULSE 74; TEMP 36.8; O2SAT 92
[2017-01-02 07:17] VITALS: PULSE 80; O2SAT 91
[2017-01-02] MEDS: ALBUT/IPRATROP 3MG/0.5MG NEB 3 ML VIAL INH SCH ×2 (07:17→11:32)
[2017-01-02] MEDS: LINEZOLID 600 MG TAB PO SCH (07:38)
[2017-01-02] MEDS: PHENAZOPYRIDINE HCL 100 MG TAB PO SCH (07:38)
[2017-01-02] MEDS: MUPIROCIN 2% OINT 22 GM TUBE EXT SCH (07:38)
[2017-01-02] MEDS: RANITIDINE HCL 150 MG TAB PO SCH (07:38)
[2017-01-02] MEDS: AMIODARONE 200 MG TAB PO SCH (07:39)
[2017-01-02] MEDS: LIDODERM (LIDOCAINE) PATCH 5% TD SCH (07:41)
[2017-01-02 08:10] VITALS: BP 114/67; PULSE 83; TEMP 36.8; O2SAT 94
[2017-01-02] MEDS: INSULIN GLARGINE SOLOSTAR 100 UNITS/ML 3 ML PEN SC SCH (08:48)
[2017-01-02] MEDS: INSULIN ASPART 100 UNITS/ML 3 ML PEN SC SCH ×2 (08:48→12:34)
[2017-01-02 11:33] VITALS: PULSE 78; O2SAT 90
[2017-01-02 12:03] VITALS: BP 110/58; PULSE 85; TEMP 36.9; O2SAT 89
--- NOTE | 2017-01-02 12:28 | Progress Note ---
Medicine Progress Note Date & Time of Visit: Jan 02, 2017 at 12:22. Subjective patient seen sitting in chair, having lunch patient states he feels fine overall pain scale about the same, no dyspnea/cough has some diarrhea again but no abdominal pain denies other symptoms states he is ready and would like to be discharged today Objective Last 8 Hrs Date Time Temp Pulse Resp B/P (MAP) Pulse Ox O2 Delivery O2 Flow Rate FiO2 01/02/17 12:03 36.9 85 18 110/58 (75) 89 Room Air 01/02/17 11:33 78 16 90 Room Air 01/02/17 08:10 36.8 83 20 114/67 (83) 94 Room Air 01/02/17 08:00 Room Air 01/02/17 07:17 80 18 91 Room Air Physical Exam: General- oriented x 3, not in distress, speaks in sentences with no effort Lungs- mild rales left base, clear on the right, no wheezing Heart- regular rhythm; no murmur, normal rate Abdomen- normal bowel sounds, soft, nontender Extremities- no pretibial edema, no calf tenderness left forearm/upper arm edema, no warmth/tenderness/swelling Neuro- alert, oriented x 3 no gross focal neuro deficits Skin- warm & dry Laboratory Results: Last 24 Hours Test 01/01/17 16:43 01/01/17 20:34 01/02/17 06:32 Bedside Glucose 227 mg/dl 268 mg/dl 72 mg/dl Assessment & Plan 86 year old male with history of COPD on O2 at , CAD, CHF, DM, Paroxysmal A fib presenting with shortness of breath. COMMUNITY ACQUIRED PNEUMONIA Presented with worsening SOB and cough Sputum cx on 11/09/16 grew MRSA- sensitive to bactrim, vanco, gentamin, rifampin Failed outpatient Abx treatment with Septra, Levaquin and Keflex CXR on admission showed left upper lobe opacity- favors pneumonia WBC now normalized off oxygen Blood cultures: negative Sputum culture: normal alex Urine culture: negative Day 4 Zosyn and vancomycin IV-->transitioned to Linezolid Day 5 out of 7 Prednisone taper Nebs q6h -- Speech Therapy consulted: * 1. Moist dental soft diet 2. Aspiration precautions: straws okay 3. 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 Momin patient and family declines further treatment at this time - continue pain management at home DYSURIA -- (+) microscopic hematuria Urine Cytology: (+) high grade urothelial carcinoma -- has history of TURBT in [address] 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 * There is mild concentric left ventricular hypertrophy. * The base inferior and posterior wall are hypokinetic, otherwise, normal wall motion. * Grade I diastolic dysfunction, (abnormal relaxation pattern). * Aortic valve sclerosis moderate, without significant aortic valvular stenosis. * Small PFO by color doppler interrogation * Compared to prior study, there is no significant change. CHRONIC SYSTOLIC CHF EF 45% on 02/2014 echo Repeat Echo showed EF btw 55 to 60% -- euvolemic PAROXYSMAL ATRIAL FIBRILLATION rate controlled Continue amiodarone and metoprolol ANEMIA Hbg 11 at baseline, was in 7's approx 2 weeks ago per family- Hbg 8 Continue PO iron supplement Monitor CBC CKD STAGE III Creatinine is at baseline Stable DM TYPE 2 Diet controlled in past Hba1c 7.1 on 12/21 Novolog sliding scale coverage -- Pharmacy Glycemic Control consulted DVT PROPHYLAXIS SCD's due to hemoptysis, anemia CODE STATUS DNR/DNI DISPOSITION d/c home with hospice services today Follows with Dr. Tyler for primary care Current Inpatient Medications: Current Inpatient Medications Medications (Trade) Dose Ordered Sig/Bruno Route Start Time Stop Time Status Last Admin Dose Admin Acetaminophen (Tylenol Tab) 650 mg Q4H PRN PO 12/25/16 17:00 01/24/17 16:59 12/31/16 11:29 650 MG Ondansetron HCl (Zofran Inj) 4 mg Q6H PRN IV 12/25/16 17:00 01/24/17 16:59 Nitroglycerin (Nitrostat Tab) 0.4 mg UD PRN SL 12/25/16 17:00 01/24/17 16:59 Glucose (Glucose 40% Gel) 15-30 GRAMS 15 GRAMS... UD PRN PO 12/25/16 17:15 01/24/17 17:14 Glucose (Glucose Chew Tab) 4-8 Tablets 4 Tabl... UD PRN PO 12/25/16 17:15 01/24/17 17:14 Dextrose (Dextrose 50% 50ML Syringe) 25-50ML OF 50% DW IV FOR... UD PRN IV 12/25/16 17:15 01/24/17 17:14 12/28/16 04:05 25 ML Glucagon (Glucagon Inj) 1 mg UD PRN SQ 12/25/16 17:15 01/24/17 17:14 Amiodarone HCl (Cordarone Tab) 100 mg DAILY PO 12/26/16 09:00 01/25/17 08:59 01/02/17 07:39 100 MG Codeine Phosphate/ Guaifenesin (Robitussin-AC Sugar Free Syrup) 5 ml Q4 PRN PO 12/25/16 17:45 01/24/17 17:44 12/25/16 22:10 5 ML Metoprolol Succinate (Toprol Xl Tab) 12.5 mg DAILY@1200 PO 12/26/16 12:00 01/25/17 11:59 01/01/17 12:21 12.5 MG Ranitidine HCl (zANTac TAB) 150 mg BID PO 12/25/16 21:00 01/24/17 20:59 01/02/17 07:38 150 MG Trazodone HCl (Desyrel Tab) 25 mg QDD PO 12/25/16 18:00 01/24/17 17:59 01/01/17 16:08 25 MG Trazodone HCl (Desyrel Tab) 50 mg HS PO 12/25/16 21:00 01/24/17 20:59 01/01/17 21:11 50 MG Albuterol/ Ipratropium (Duoneb) 3 ml QIDR INH 12/25/16 20:00 01/24/17 19:59 01/02/17 11:32 3 ML Albuterol/ Ipratropium (Duoneb) 3 ml Q2H PRN INH 12/25/16 18:30 01/24/17 18:29 Mupirocin (Bactroban 2% Oint) 1 appln BID EXT 12/26/16 09:00 01/25/17 08:59 01/02/17 07:38 1 APPLN Miscellaneous Information (Consult Glycemic Management Pharmacy) 1 ea UD PRN N/A 12/27/16 11:25 01/26/17 11:24 Insulin Aspart (novoLOG ASPART) SLIDING SCALE ACHS SC 12/28/16 07:00 01/27/17 06:59 01/02/17 08:48 2 UNITS Insulin Glargine (Lantus Solostar Pen) See Protocol Text BID SC 12/28/16 21:00 01/26/17 12:29 01/02/17 08:48 5 UNITS Linezolid (Zyvox Tab) 600 mg BID PO 12/29/16 11:30 01/05/17 11:29 01/02/17 07:38 600 MG Phenazopyridine HCl (Pyridium Tab) 100 mg TID PO 12/30/16 14:00 01/29/17 13:59 01/02/17 07:38 100 MG Oxycodone/ Acetaminophen (Percocet 5-325mg Tab) 1 tab Q4H PRN PO 12/30/16 17:45 01/08/17 17:44 01/01/17 19:54 1 TAB Lidocaine (Lidoderm Patch 5%) 1 patch QAM TD 01/01/17 09:00 01/31/17 08:59 01/02/17 07:41 1 PATCH Miscellaneous (Remove Lidoderm Patch) 1 ea DAILY@21 N/A 12/31/16 21:00 01/30/17 20:59 01/01/17 00:29 1 EA Loperamide HCl (Imodium Cap) 2 mg DAILY PRN PO 12/31/16 16:30 01/30/17 16:29 12/31/16 19:57 2 MG Prednisone (PredniSONE TAB) 10 mg DAILY PO 01/02/17 09:00 01/27/17 08:59 01/02/17 07:38 10 MG Fentanyl (Duragesic Patch) 12 mcg Q3D@0900 TD 01/01/17 18:00 01/15/17 17:59 01/01/17 17:43 12 MCG Miscellaneous (Fentanyl Patch Remove & Waste) 1 ea Q3D@0859 N/A 01/04/17 08:59 02/03/17 08:58 Miscellaneous Information (Check Fentanyl Patch Placement) 1 ea QS N/A 01/02/17 00:00 02/01/17 00:00 01/02/17 07:35 1 EA
[2017-01-02] MEDS: METOPROLOL SUCC 25MG EXT REL TAB PO SCH (12:35)
[2017-01-02] MEDS: LOPERAMIDE HCL 2 MG CAP PO PRN (12:37)
[2017-01-02] MEDS ORDERED: LOPERAMIDE HCL 2 MG CAP PO STA (12:43)
[2017-01-02] MEDS ORDERED: DRGTP12 TD (12:48)
[2017-01-02] MEDS ORDERED: LINE1TAB2 PO (12:48)
[2017-01-02] MEDS ORDERED: OXYC-57 PO (12:48)
[2017-01-02] MEDS ORDERED: PHEN-1042 PO (12:48)
[2017-01-02] MEDS ORDERED: IMD2X PO (12:48)
[2017-01-02] MEDS ORDERED: MORP20SO PO (12:48)
--- NOTE | 2017-01-02 12:54 | Discharge Instructions ---
Discharge Instructions Date of Service Jan 02, 2017. Admission Reason for Admission: Pna (Pneumonia) Discharge Discharge Diagnosis / Problem: MRSA PNEUMONIA, LUNG MASSES Discharge Goals Goal(s): Diagnostic testing, Therapeutic intervention Activity Recommendations Activity Limitations: as noted below ( TOLERATED) . Instructions / Follow-Up Instructions / Follow-Up PLEASE REVIEW NEW MEDICATION LIST AND FOLLOW INSTRUCTIONS CAREFULLY. THE HOME HOSPICE SERVICES WILL BE CONTINUING PATIENT CARE AT HOME. PLEASE CONTACT THE HOME HOSPICE SERVICES FOR ANY QUESTIONS OR CONCERNS THAT YOU MAY HAVE. SPEECH THERAPY RECOMMENDATIONS: 1. Moist dental soft diet 2. Aspiration precautions: straws okay 3. Compensatory strategies: FULLY UPRIGHT for meals and for ~15 minutes after meals; alternate solids and liquids during meals; avoid icy cold beverages; make sure to complete oral hygiene AT LEAST twice per day PLEASE FOLLOW UP WITH DR. FREY WITHIN 3-5 DAYS. Current Hospital Diet Patient's current hospital diet: Diabetes Type 2 Diet, AHA Diet (Heart Healthy) Discharge Diet Recommended Diet: AHA Diet (Heart Healthy), Diabetes Type 2 Diet Procedures Procedures Performed: CT SCAN OF THE CHEST Pending Studies Studies pending at discharge: no Laboratory Results Hemoglobin A1c Test 12/26/16 05:38 Range/Units Estimated Average Glucose 157 mg/dl Hemoglobin A1c 7.1 H 4.5-5.6 % Medical Emergencies . Who to Call and When: Medical Emergencies: If at any time you feel your situation is an emergency, please call 911 immediately. . Non-Emergent Contact Non-Emergency issues call your: Primary Care Provider, Specialist (HOSPICE CARE SERVICES) Call Non-Emergent contact if: you have a fever, your pain is not controlled, your pain is worsening, you have any medication questions . . "Provider Documentation" section prepared by Oliver Lynn. . VTE Core Measure Inpt VTE Proph given/why not?: SCD's [place] Drug Monitoring Program Search Results: patient reviewed within database, no issues identified
--- NOTE | 2017-01-02 13:00 | Discharge Summary ---
Discharge Summary Date of Service Jan 02, 2017. Discharge Summary Admission Date: Dec 25, 2016 at 17:38 Discharge Date: Jan 02, 2017 Discharge Disposition: Home with services Principal Diagnosis: COMMUNITY ACQUIRED PNEUMONIA, MRSA Secondary Diagnoses/Problems: Please refer to hospital course below. Procedures: (CHEST) THORAX WITHOUT CT DOSE: 298.60 mGycm HISTORY: lung mass, possible pneumonia TECHNIQUE: Multiaxial CT images of the chest were performed without contrast. A dose lowering technique was utilized adhering to the principles of ALARA. COMPARISON: Chest CT 04/07/2014. FINDINGS: The spiculated right upper lobe mass is increased in size and measures 5.8 x 4.2 cm. Emphysema. No pneumothorax. There is a new spiculated mass within the left lung apex which measures 2.8 cm. This likely represents metastatic disease. Patchy densities within the lung bases posteriorly. This is nonspecific and could represent atelectasis or pneumonia. Small amount of mucoid material within the trachea at the level of the flaco. Small left pleural effusion. Large cavitary soft tissue mass centered at the left anterior first costosternal junction. This soft tissue mass results in destruction of the medial aspect of the clavicle, left side of the manubrium/proximal sternum, left anterior first rib, and left anterior second rib. This invades into the anterior aspect of the superior mediastinum. This abuts the ascending thoracic aorta. This mass measures approximately 9 x 6 cm in size. This invades into the left anterior chest wall. Mild mediastinal lymphadenopathy. The heart is mildly enlarged. Elevation of the left hemidiaphragm. IMPRESSION: 1. Increase in size in the spiculated right upper lobe mass consistent with a primary bronchogenic malignancy. 2. There is a new spiculated mass within the left lung apex consistent with a metastatic deposit. 3. Large destructive cavitary mass within the left anterior chest wall centered at the first costosternal junction. This is consistent with a metastatic lesion. This results in destruction of the medial aspect of the clavicle, manubrium/sternum, left anterior first rib, and left anterior second rib. 4. Mild mediastinal lymphadenopathy. 5. Small left pleural effusion. ULTRASOUND LEFT UPPER EXTREMITY VENOUS CLINICAL HISTORY: Left arm swelling. COMPARISON STUDY: No priors. TECHNIQUE: Real-time, grayscale, and color Doppler sonography of the deep veins of the left upper extremity is performed. Compression and augmentation were utilized. FINDINGS: There is no sonographic evidence of deep venous thrombosis identified in the left upper extremity. The left internal jugular, axillary, and brachial veins are patent and normally compressible. Normal venous waveforms and augmentation are seen within the left subclavian vein. The cephalic and basilic veins are clear. The visualized radial and ulnar veins are patent. Subcutaneous soft tissue edema is noted in the left arm. There is a pocket of subcutaneous fluid seen posterior to the elbow which measures up to 3.2 cm. IMPRESSION: 1. There is no sonographic evidence of deep venous thrombosis identified in the left upper extremity. 2. Soft tissue swelling is noted in the left arm and there is a pocket of simultaneous fluid posterior to the elbow, possibly representing bursitis. Clinical correlation will be required. Consultations: PULMONARY DR. WILSON, INFECTIOUS DISEASE DR. RIZVI, PALLIATIVE CARE SERVICE, UROLOGY DR. CARDONA Pending Studies/Follow-Up: Please refer to hospital course below. Medication Reconciliation New Medications: Morphine Sulfate (Morphine Sulfate) 20 Mg/5 Ml Skylar 5-10 MG PO Q3H PRN for pain/shortness of breath, #20 ML 0 Refills Fentanyl (Fentanyl) 12 Mcg Tdsy 12 MCG TD Q3D@0900 for 10 Days, #3 PATCH 0 Refills Linezolid (Linezolid) 600 Mg Tab 600 MG PO BID for 3 Days, #6 TAB 0 Refills Loperamide Hcl (Imodium) 2 Mg Cap 2 MG PO DAILY PRN for Diarrhea for 7 Days, #20 CAP 1 Refill take 1 cap after each loose stool, do not take more than 8 caps per day Phenazopyridine HCl (Phenazopyridine HCl) 100 Mg Tab 100 MG PO TID for 15 Days, #45 TAB 2 Refills Changed Medications: Oxycodone/Acetaminophen 5MG/325MG (Percocet 5MG/325MG) Tab 1 TABLET PO Q4H PRN for Pain for 10 Days, TAB (Changed from: 0.5 TABLET) Continued Medications: Amiodarone Hcl (Pacerone) 200 Mg Tab 100 MG PO DAILY, TAB Guaifenesin-Codeine (Codeine/Guaifenesin 100-10 mg/5Ml) 1 Skylar Skylar 5-10 ML PO Q4 PRN for Cough Home O2 Therapy (Oxygen) Gas 3.5 LITER NA HS 3.5 lpm via nasal cannula at bedtime and 4 lpm with exertion Ipratropium-Albuterol (Duoneb) 3 Ml Nebu 1 TREATMENT INH QID, INHA Metoprolol Succ (Toprol Xl) (Toprol-Xl) 25 Mg Tabcr 12.5 MG PO DAILYBL, #30 TAB 12.5 mg by mouth daily at noon Nitroglycerin (Nitrostat) 0.4 Mg Tab 0.4 MG UT PRN, 0 Refills Trazodone Hcl (Trazodone) 50 Mg Tab 50 MG PO HS, TAB Trazodone Hcl (Trazodone) 50 Mg Tab 25 MG PO QDD Discontinued Medications: Ascorbic Acid (Ascorbic Acid) 500 Mg Tab 500 MG PO DAILY, TAB Cephalexin Monohydrate (Keflex) 500 Mg Cap 500 MG PO TID, #15 CAP Cholecalciferol (Vitamin D3) 1,000 Unit Tab 1000 UNITS PO QAM Multiple Vitamins W/ Iron (Daily Vitamin Formula+Ir) 1 Tab Tab 1 TAB PO DAILY Pantoprazole (Protonix) 40 Mg Tab 40 MG PO NOON, #30 TAB Ranitidine (Zantac) 150 Mg Tab 150 MG PO BID, TAB [Alteril] () 2 TABS PO HS Admission Information HPI (per Admitting provider): This is an 86 y/o male with COPD requiring home O2, lung mass- declined workup in past, CAD s/p CABG x 4, CHF with mild systolic dysfunction (EF 45% on echo ), hx atrial fibrillation, HTN, DM type 2, CKD III, and other problems listed below who presents to the ED for worsening SOB and left arm swelling. Per family, prior to arrival home health nurse noted patient was hypotensive to 80s/50s, hypoxic, and had rales on auscultation. Pt reports cough productive of yellow sputum with intermittent hemoptysis- last episode yesterday. Has associated rhinorrhea. Recently took multiple courses of antibiotics prescribed by PCP Dr. Tyler (appears 10 day course of Septra was prescribed 11/13/16 after sputum culture from 11/09/16 grew MRSA, then took course of Levaquin, now on Keflex for past 6 days) and 10 day course of prednisone (finished 3 days ago) without improvement. Now has worsening of chronic MCKINNEY over past few days. Sleeps at 45 degree angle chronically due to orthopnea. Home O2 is usually 3.5 liters HS and 4 liters PRN. Has required 4 liters for past 4 days. Feels fatigued and generally weak. Fell 2 days ago due to loss of balance. No head trauma or LOC. Usually uses cane or walker but was in the bathroom without assistive device. Has left shoulder pain and LUE edema since that time. Per family, Hg was in 7's approx 2 weeks ago and pt was started on iron-containing vitamins. Has black stool since starting iron. Has chronic dysuria and intermittent hematuria. Has hx bladder CA s/p transurethral resection. Weight is stable recently but lost 10 lb in past 1 year. Not a good eater at baseline. No choking episodes. Denies fever, chills, dizziness, chest pain, N/V/D. Physical Exam (per Admitting): General Appearance: no apparent distress, + thin, + pertinent finding ( pleasant alert frail elderly male. family at bedside. ) Head: normocephalic, atraumatic Eyes: normal inspection, PERRL, EOMI, sclerae normal ENT: pharynx normal, + pertinent finding (hard of hearing) Neck: supple, trachea midline Respiratory/Chest: no respiratory distress, no accessory muscle use, + decreased breath sounds, + rales (bilateral bases), + pertinent finding ( saturating well on 3 liters nasal cannula. left lower ribs tender to palpation. ) Cardiovascular: regular rate, rhythm, no murmur Abdomen/GI: normal bowel sounds, non tender, soft Extremities/Musculoskelatal: no calf tenderness, + pedal edema (trace edema bilateral ankles), + pertinent finding (1+ edema left forearm. left shoulder tender anterior and lateral aspects, abducts up to 90 degrees. left elbow and left wrist nontender, ROM WNL. ) Neurologic/Psych: alert, normal mood/affect, oriented x 3, + pertinent finding (no focal deficit on gross examination) Skin: normal color, warm/dry Hospital Course 86 year old male with history of COPD on O2 at HS, CAD, CHF, DM, Paroxysmal A fib presenting with shortness of breath. COMMUNITY ACQUIRED PNEUMONIA Presented with worsening SOB and cough Sputum cx on 11/09/16 grew MRSA- sensitive to bactrim, vanco, gentamin, rifampin Failed outpatient Abx treatment with Septra, Levaquin and Keflex CXR on admission showed left upper lobe opacity- favors pneumonia Blood cultures: negative Sputum culture: normal alex Urine culture: negative ID consulted given 4 days of Zosyn and vancomycin IV-->transitioned to Linezolid Day 5 out of 7 Prednisone taper Nebs q6h -- Speech Therapy consulted: * 1. Moist dental soft diet 2. Aspiration precautions: straws okay 3. 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 Increase in size in the spiculated right upper lobe mass consistent with a primary bronchogenic malignancy. 2. There is a new spiculated mass within the left lung apex consistent with a metastatic deposit. 3. Large destructive cavitary mass within the left anterior chest wall centered at the first costosternal junction. This is consistent with a metastatic lesion. This results in destruction of the medial aspect of the clavicle, manubrium/sternum, left anterior first rib, and left anterior second rib. 4. Mild mediastinal lymphadenopathy. 5. Small left pleural effusion. - consulted Pulmonary Dr. 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 Yao -- Urology consulted Oxybutinin discontinued, changed to Pyridium MILD TROPONIN ELEVATION HX CAD S/P CABG X4 possible related to elevated creatine Initial POC troponin 0.100 Denies any chest pain cardiac marker trending down Continue beta luzmaria ECHO done showed * -- Conclusions -- * Ejection Fraction = 55-60%. * There is mild concentric left ventricular hypertrophy. * The base inferior and posterior wall are hypokinetic, otherwise, normal wall motion. * Grade I diastolic dysfunction, (abnormal relaxation pattern). * Aortic valve sclerosis moderate, without significant aortic valvular stenosis. * Small PFO by color doppler interrogation * Compared to prior study, there is no significant change. CHRONIC SYSTOLIC CHF EF 45% on 02/2014 echo Repeat Echo showed EF btw 55 to 60% -- euvolemic PAROXYSMAL ATRIAL FIBRILLATION rate controlled Continue amiodarone and metoprolol ANEMIA Hbg 11 at baseline, was in 7's approx 2 weeks ago per family- Hbg 8 Continue PO iron supplement Monitor CBC CKD STAGE III Creatinine is at baseline Stable DM TYPE 2 Diet controlled in past Hba1c 7.1 on 12/21 Novolog sliding scale coverage -- Pharmacy Glycemic Control consulted DVT PROPHYLAXIS SCD's due to hemoptysis, anemia CODE STATUS DNR/DNI DISPOSITION d/c home with hospice services today Follows with Dr. Tyler for primary care Total time spent on discharge = 45 minutes This includes examination of the patient, discharge planning, medication reconciliation, and communication with other providers. Discharge Instructions Discharge Instructions Date of Service Jan 02, 2017. Admission Reason for Admission: Pna (Pneumonia) Discharge Discharge Diagnosis / Problem: MRSA PNEUMONIA, LUNG MASSES Discharge Goals Goal(s): Diagnostic testing, Therapeutic intervention Activity Recommendations Activity Limitations: as noted below ( TOLERATED) . Instructions / Follow-Up Instructions / Follow-Up PLEASE REVIEW NEW MEDICATION LIST AND FOLLOW INSTRUCTIONS CAREFULLY. THE HOME HOSPICE SERVICES WILL BE CONTINUING PATIENT CARE AT HOME. PLEASE CONTACT THE HOME HOSPICE SERVICES FOR ANY QUESTIONS OR CONCERNS THAT YOU MAY HAVE. SPEECH THERAPY RECOMMENDATIONS: 1. Moist dental soft diet 2. Aspiration precautions: straws okay 3. Compensatory strategies: FULLY UPRIGHT for meals and for ~15 minutes after meals; alternate solids and liquids during meals; avoid icy cold beverages; make sure to complete oral hygiene AT LEAST twice per day Current Hospital Diet Patient's current hospital diet: Diabetes Type 2 Diet, AHA Diet (Heart Healthy) Discharge Diet Recommended Diet: AHA Diet (Heart Healthy), Diabetes Type 2 Diet Procedures Procedures Performed: CT SCAN OF THE CHEST Pending Studies Studies pending at discharge: no Laboratory Results Hemoglobin A1c Test 12/26/16 05:38 Range/Units Estimated Average Glucose 157 mg/dl Hemoglobin A1c 7.1 H 4.5-5.6 %
[2017-01-02 13:05] VITALS: BP 110/58; PULSE 85; TEMP 36.9; O2SAT 89
[2017-01-04] MEDS ORDERED: FENTANYL PATCH REMOVE & WASTE SCH (08:59)
== END 2017-01-02 13:29 | disposition hospice, home (50) | DRG 190 ==
LOC: C.EDB 12:04 → EDBD 12:04 → UNDOADMIN 17:38 → C.2E 17:38 → EDBEDREQ 17:42 → ENRESERV 17:48
PROVIDERS: ADMIT Internal Medicine; ATTEND Internal Medicine
DX: J44.0 Chronic obstructive pulmonary disease with (acute) lower respiratory infection (principal); J18.9 Pneumonia, unspecified organism; I13.0 Hypertensive heart and chronic kidney disease with heart failure and stage 1 through stage 4 chronic kidney disease, or unspecified chronic kidney disease; I50.22 Chronic systolic (congestive) heart failure; J96.11 Chronic respiratory failure with hypoxia; R04.2 Hemoptysis; I87.1 Compression of vein; I25.10 Atherosclerotic heart disease of native coronary artery without angina pectoris; I48.0 Paroxysmal atrial fibrillation; N18.3 Chronic kidney disease, stage 3 (moderate); E11.22 Type 2 diabetes mellitus with diabetic chronic kidney disease; D64.9 Anemia, unspecified; Z51.5 Encounter for palliative care; M79.602 Pain in left arm; M79.89 Other specified soft tissue disorders; N40.0 Benign prostatic hyperplasia without lower urinary tract symptoms; E78.5 Hyperlipidemia, unspecified; I25.2 Old myocardial infarction; R91.8 Other nonspecific abnormal finding of lung field; Z66 Do not resuscitate; Z79.899 Other long term (current) drug therapy; Z87.891 Personal history of nicotine dependence; Z95.1 Presence of aortocoronary bypass graft; Z99.81 Dependence on supplemental oxygen; Z91.81 History of falling; Z86.14 Personal history of Methicillin resistant Staphylococcus aureus infection